=== PATIENT | female | born 1930 | race Caucasian/White ===

== ENCOUNTER 2016-02-25 21:39 | Inpatient (IN) | payer MEDICARE, BC ==
[~2016-02-25] VITALS: Ht 165.1 cm; Wt 65.0 kg
[~2016-02-25 21:39] MED LIST: AMLO5TAB22 PO; CARB25TA4 PO; CIPR250T2 PO; CLOP75 PO; FERR325T PO; GLUCTAB PO; LEVO50TA4 PO; NITR.4 SL; NOVORP2 SQ; PROT40TA PO; RIVA4.6T TD; ROTI4DIS TD; ST JTAB PO; ZOLO25TA PO
[2016-02-25 21:50] VITALS: BP 71/46; PULSE 102; RESP 18; O2SAT 95
[2016-02-25 22:10] VITALS: BP 109/55; PULSE 95; RESP 18; O2SAT 93
[2016-02-25 22:14] VITALS: BP 114/54; PULSE 101; RESP 18; TEMP 100.2; O2SAT 92
[2016-02-25] MEDS ORDERED: MIDAZOLAM HCL 5 MG/ML VIAL (1 ML) ONE (22:16)
[2016-02-25 22:37] VITALS: BP_SYST 89; BP_SYST 90; BP_DIAS 50; BP_DIAS 59; PULSE 94; RESP 18
[2016-02-25] MEDS ORDERED: SODIUM CHLOR 0.9% 1000 ML INJ 1,000 ML IV ONE (22:38)
[2016-02-25] MEDS ORDERED: VANCOMYCIN INJ 1,000 MG in SODIUM CHLOR 0.9% 250 ML INJ 250 ML IV STA (22:38)
[2016-02-25] MEDS ORDERED: PIPERACIL-TAZO 4.5 GM PREMIX 100 ML IV STA (22:38)
[2016-02-25] MEDS ORDERED: SODIUM CHLOR 0.9% 1000 ML INJ 800 ML IV ONE (22:38)
--- NOTE | 2016-02-25 22:57 | RADRPT ---
EXAM DATE/TIME: 02/25/2016 22:50 [facility] COMPARISON: CHEST SINGLE AP, December 20, 2014, 19:58. INDICATIONS : Evaluate central line placement. MEDICAL HISTORY : None. SURGICAL HISTORY : None. ENCOUNTER: Initial ACUITY: 1 day PAIN SCORE: Non-responsive. LOCATION: Left chest FINDINGS: There is a left subclavian central venous catheter that enters the superior vena cava and then turns cephalad for a distance of approximately 5 cm, presumably within the right internal jugular vein ther e is no pneumothorax. No infiltrates seen. Heart size stable, within normal limits. CONCLUSION: The left subclavian central venous catheter has its tip directed cephalad, projecting over the right medial lung apex. Please see above. No pneumothorax. Morales Gan MD on February 25, 2016 at 22:54 Board Certified Radiologist. This report was verified electronically.
[2016-02-25 23:05] LABS: AUTOMATED NEUTROPHIL # 16.9 TH/MM3 (1.8-7.7); BASOPHIL % 0.1 % (0.0-2.0); HEMATOCRIT 35.1 % (35.0-46.0); HEMO FLAGS DIFF FINAL; LYMPHOCYTE # 5.1 TH/MM3 (1.0-4.8); MEAN CORPUSCULAR HEMOGLOBIN 31.3 PG (27.0-34.0); MEAN CORPUSCULAR HGB CONC 32.3 % (32.0-36.0); MONO % 5.7 % (0.0-8.0); NEUT % 72.2 % (16.0-70.0); PLATELET COUNT 248 TH/MM3 (150-450); RED BLOOD COUNT 3.62 MIL/MM3 (4.00-5.30); RED CELL DISTRIBUTION WIDTH 14.6 % (11.6-17.2); WHITE BLOOD COUNT 23.5 TH/MM3 (4.0-11.0)
[2016-02-25] MEDS ORDERED: LORA-474 PO (23:09)
[2016-02-25] MEDS ORDERED: DIVA125C PO ×2 (23:09→23:19)
[2016-02-25] MEDS ORDERED: MIDAZOLAM HCL 2 MG/2 ML VIAL IV PUSH ONE (23:15)
[2016-02-25] MEDS ORDERED: ASPI81TA19 (23:19)
[2016-02-25] MEDS ORDERED: [UNRECOGNIZED DRUG - CODE] (23:19)
[2016-02-25] MEDS ORDERED: NITR1SUB3 SL (23:19)
[2016-02-25] MEDS ORDERED: FERR325T PO (23:19)
[2016-02-25] MEDS ORDERED: LEXA10TA PO (23:19)
[2016-02-25] MEDS ORDERED: AMLO5TAB2 PO (23:19)
[2016-02-25] MEDS ORDERED: INSUINJ3 SQ/IV (23:19)
[2016-02-25] MEDS ORDERED: REME30TA PO (23:19)
[2016-02-25] MEDS ORDERED: CARB25TA9 PO (23:19)
[2016-02-25] MEDS ORDERED: PLAV75TA29 PO (23:19)
[2016-02-25] MEDS ORDERED: LORA1TAB12 PO (23:19)
[2016-02-25] MEDS ORDERED: METF500T PO (23:19)
[2016-02-25] MEDS ORDERED: LEVO75TA3 PO (23:19)
[2016-02-25] MEDS ORDERED: PROT40TA PO (23:19)
[2016-02-25] MEDS ORDERED: MACR100C2 PO (23:19)
[2016-02-25] MEDS ORDERED: ROTI4DIS T-DERMAL (23:19)
[2016-02-25 23:24] LABS: BACTERIA, URINE MANY /hpf; BLOOD, URINE LARGE (NEG); COMMENT (UR) CATH-CULTURE IND; CULTURE IF INDICATED CATH CULTURE IND; GLUCOSE,URINE NEG (NEG); KETONE, URINE NEG (NEG); NITRITE,URINE POS (NEG); PH, URINE 7.5 (5.0-8.5); URINE COLOR RED (YELLW/STRAW)
[2016-02-25 23:31] LABS: ALKALINE PHOSPHATASE 75 U/L (45-117); ALT (GPT) 11 U/L (10-53); ANION GAP 12 MEQ/L (5-15); AST (GOT) 8 U/L (15-37); BICARBONATE 17.7 MEQ/L (21.0-32.0); BLOOD UREA NITROGEN 70 MG/DL (7-18); CHLORIDE 119 MEQ/L (98-107); GLOMERULAR FILTRATION RATE 22 ML/MIN (>89); POTASSIUM 4.2 MEQ/L (3.5-5.1); SODIUM (NA) 149 MEQ/L (136-145); TOTAL BILIRUBIN ADULT 0.3 MG/DL (0.2-1.0)
[2016-02-25 23:34] LABS: CREATINE KINASE 12 U/L (26-192)
--- NOTE | 2016-02-25 23:37 | RADRPT ---
EXAM DATE/TIME: 02/25/2016 23:22 [facility] COMPARISON: CT BRAIN W/O CONTRAST, January 11, 2015, 19:10. INDICATIONS : Altered mental status. RADIATION DOSE: 45.17 CTDIvol (mGy) MEDICAL HISTORY : Cerebrovascular disease. Hypertension. SURGICAL HISTORY : None. ENCOUNTER: Initial ACUITY: 1 day PAIN SCALE: 0/10 LOCATION: cranial TECHNIQUE: Multiple contiguous axial images were obtained of the head. Using automated exposure control and adj ustment of the mA and/or kV according to patient size, radiation dose was kept as low as reasonably a chievable to obtain optimal diagnostic quality images. FINDINGS: CEREBRUM: There is dilation of the ventricles and prominence of the sulci characteristic of moderately severe a trophy. Areas of decreased attenuation are present in the posterior left parietal lobe and in the ri ght parieto-occipital lobe involving doherty and white matter. This is a new finding compared to prior CT December 2014 and suggests bilateral infarcts. No evidence of blood products. No evidence of mid line shift. No extra-axial fluid collections. POSTERIOR FOSSA: The cerebellum and brainstem are intact. The 4th ventricle is midline. The cerebellopontine angle i s unremarkable. EXTRACRANIAL: The visualized portion of the orbits is intact. SKULL: The calvaria is intact. No evidence of skull fracture. 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 No evidence of blood products, mass effect, or cerebral edema. Tonny Gutierrez MD on February 25, 2016 at 23:32 Board Certified Radiologist. This report was verified electronically.
--- NOTE | 2016-02-25 23:39 | RADRPT ---
EXAM DATE/TIME: 02/25/2016 23:16 [facility] COMPARISON: CHEST SINGLE AP, February 25, 2016, 22:50. INDICATIONS : Evaluate Central Line reposition. MEDICAL HISTORY : Hypertension. Arthritis. Cardiovascular diseaseDiabetes SURGICAL HISTORY : Hysterectomy. Cholecystectomy. Coronary artery stent. ENCOUNTER: Subsequent ACUITY: 1 day PAIN SCORE: Non-responsive. LOCATION: Bilateral chest FINDINGS: A single view of the chest demonstrates the lungs to be symmetrically aerated without evidence of mas s, infiltrate or effusion. The cardiomediastinal contours are unremarkable. Osseous structures are intact. The left subclavian catheter has been repositioned and the tip is now projected in the dista l superior vena cava. No evidence of pneumothorax. CONCLUSION: Left central line tip is now in the distal superior vena cava. No pneumothorax seen. Tonny Gutierrez MD on February 25, 2016 at 23:37 Board Certified Radiologist. This report was verified electronically.
[2016-02-25 23:48] VITALS: O2SAT 96
[2016-02-25 23:49] VITALS: BP 112/51; PULSE 93; RESP 18; O2SAT 96
[2016-02-26] VITALS (13 sets, daily range): BP systolic 95–118; BP diastolic 42–69; PULSE 82–105; RESP 16–25; TEMP 97.9–100.1; O2SAT 94–100
--- NOTE | 2016-02-26 00:05 | PD ---
HPI Chief Complaint: Abnormal Results Time Seen by Provider: 22:38 Travel History International Travel<30 days: No Contact w/Intl Traveler<30days: No Traveled to known affect area: No History of Present Illness HPI 85-year-old female came to the emergency room brought by EMS as possible sepsis from the [facility]. Patient was found poorly responsive by the 3 PM shift at the [facility]. There was a blood work sent and EMS was called. The blood test result had a WBC count of 25,000. The nurse practitioner at the [facility] put a Tabares catheter which has been draining extremely cloudy and brown color urine. Patient has severe Parkinsonism and probably not very ambulatory since she has a deep decubitus ulcer in her sacrum. I was told that the patient's is also admitted in the hospital and her son is on his way to see the patient. Her blood pressure en route as per paramedics was 85 systolic. Patient is unresponsive mostly. Just moaning and opens her eyes a little bit upon sternal rub. She is unable to give any meaningful history. She is a full code. She has been maintaining her respirations and is saturating 99% on nasal cannula. [facility] Past Medical History Narrative Medical History of her past medical history is reviewed from the nursing note. Arthritis: Yes Asthma: No Blood Disorders: No Anxiety: Yes Depression: Yes Heart Rhythm Problems: No Cancer: Yes ( NOSE) Cardiac Catheterization: Yes (STENT LAD) Cardiovascular Problems: Yes High Cholesterol: Yes Chemotherapy: No Chest Pain: Yes Congestive Heart Failure: No COPD: No Cerebrovascular Accident: Yes ([place]) Dementia: Yes Diabetes: Yes Patient Takes Glucophage: Yes Diminished Hearing: Yes ([place]) Endocrine: Yes Gastrointestinal Disorders: Yes ([place]MM[place]HO[place] ) GERD: Yes Glaucoma: No Headaches: No Hepatitis: Yes Hiatal Hernia: Yes Heparin Induced Thrombocytopen: No Hypertension: Yes Immune Disorder: Yes (SJORGEN'S SYNDROME) Implanted Vascular Access Dvce: Yes Kidney Stones: Yes Musculoskeletal: Yes (L LEG SHORTER THAN RIGHT, L FOOT SMALLER) Neurologic: Yes Parkinson's Disease: Yes Psychiatric: Yes Reproductive: No Migraines: No Myocardial Infarction: No Radiation Therapy: No Renal Failure: No Seizures: No Sleep Apnea: No Thyroid Disease: Yes Ulcer: No PNEUMOCCOCAL Vaccine (Year): 2 Past Surgical History Abdominal Surgery: Yes AICD: No Appendectomy: No Arteriovenous Shunt: No Body Medical Devices: "HEART STENT, I CAN'T REMEMBER ANYTHING ELSE" Cardiac Surgery: Yes (STENT PLACED TWO YEARS AGO) Cholecystectomy: Yes Coronary Artery Bypass Graft: No Coronary Stent: Yes Ear Surgery: No Endocrine Surgery: No Eye Surgery: No Genitourinary Surgery: Yes (RIGHT KIDNEY, URETHRAL) Gynecologic Surgery: Yes Hysterectomy: Yes Insulin Pump: No Joint Replacement: No Neurologic Surgery: No Oral Surgery: No Pacemaker: No Thoracic Surgery: Yes (THORACOTOMY at 26, FOUND A CYST ON HER LUNG) Tonsillectomy: Yes Other Surgery: Yes (NOSE) Family History Family Myocardial Infarction: Yes Social History Alcohol Use: No Tobacco Use: No Substance Use: No Allergies-Medications (Allergen,Severity, Reaction): Coded Allergies: Iodinated Contrast Media (Verified Allergy, Severe, DIFFICULTY BREATHING, 02/25/16) Keflex (Verified Allergy, Severe, 02/25/16) Tetracycline (Verified Allergy, Severe, 02/25/16) [place] (Verified Allergy, Mild, 02/25/16) *MDRO Multi-Drug Resistant Organism (Verified Adverse Reaction, Unknown, MRSA, 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 Reported Meds & Prescriptions Reported Meds & Active Scripts Active Reported Megestrol Acetate 1 Pow Pow 1 Lexapro (Escitalopram Oxalate) 10 Mg Tab 10 Mg PO DAILY Remeron (Mirtazapine) 30 Mg Tab 30 Mg PO HS Neupro Patch 24 HR (Rotigotine Patch 24 HR) 4 Mg/24 Hr Patch 4 Mg T-DERMAL DAILY Protonix (Pantoprazole Sodium) 40 Mg Tab 40 Mg PO DAILY Nitroglycerin SL (Nitroglycerin) 0.4 Mg Subl 0.4 Mg SL DIRECTED PRN ONE TABLET UNDER THE TONGUE NEEDED FOR CHEST PAIN, MAY REPEAT EVERY FIVE MINUTES FOR A TOTAL OF 3 DOSES OR CALL 911 IF NO RELIEF Metformin (Metformin HCl) 500 Mg Tab 500 Mg PO BIDPC With meals Lorazepam 1 Mg Tab 1 Mg PO Q8H Levothyroxine (Levothyroxine Sodium) 75 Mcg Tab 37.5 Mcg PO DAILY Novolin R Relion (Insulin Regular (Human)) 100 Unit/Ml Inj 100 Units SQ/IV SLIDING SCALE Ferrous Sulfate 325 Mg Tab 325 Mg PO DAILY Depakote Sprinkles (Divalproex Sodium) 125 mg Cap 125 Mg PO BID Plavix (Clopidogrel Bisulfate) 75 Mg Tab 75 Mg PO DAILY Carbidopa-Levodopa 25-100 Mg Tab 1 Tab PO Q8HR Aspir-Low (Aspirin) 81 Mg Tabdr Amlodipine (Amlodipine Besylate) 5 Mg Tab 5 Mg PO DAILY Narrative Medication List of her home medications reviewed from the nursing note. Review of Systems Except as stated in HPI: all other systems reviewed are Neg Physical Exam Narrative GENERAL: Elderly, frail, poorly responsive SKIN: Warm and dry. Patient has a stage IV decubitus ulcer on her sacral area about 3 cm diameter HEAD: Atraumatic. Normocephalic. EYES: Pupils equal and round. No scleral icterus. No injection or drainage. ENT: No nasal bleeding or discharge. Dry mucous membrane, cracked lips and coated tongue NECK: Trachea midline. No JVD. CARDIOVASCULAR: Regular rate and rhythm. No murmur appreciated. RESPIRATORY: No accessory muscle use. Clear to auscultation. Breath sounds equal bilaterally. GASTROINTESTINAL: Abdomen soft, non-tender, nondistended. Hepatic and splenic margins not palpable. MUSCULOSKELETAL: No obvious deformities. No clubbing. No cyanosis. No edema. NEUROLOGICAL: GCS of 9 PSYCHIATRIC: Unable to assess Data Data Last Documented VS Vital Signs Date Time Temp Pulse Resp B/P Pulse Ox O2 Delivery O2 Flow Rate FiO2 02/25/16 23:49 93 18 112/51 96 Nasal Cannula 3 02/25/16 22:14 100.2 Orders Midazolam Inj (Versed Inj) (02/25/16 22:16) Complete Blood Count With Diff (02/25/16 22:38) Comprehensive Metabolic Panel (02/25/16 22:38) Lactic Acid Sepsis Protocol (02/25/16 22:38) Ckmb (Isoenzyme) Profile (02/25/16 22:38) Troponin I (02/25/16 22:38) Urinalysis - C+S If Indicated (02/25/16 22:38) Blood Culture (02/25/16 22:38) Chest, Single Ap (02/25/16 22:38) Blood Glucose (02/25/16 22:38) Ecg Monitoring (02/25/16 22:38) Iv Access Insert/Monitor (02/25/16 22:38) Oximetry (02/25/16 22:38) Oxygen Administration (02/25/16 22:38) Ct Brain W/O Iv Contrast(Rout) (02/25/16 22:38) Vancomycin Inj (Vancomycin Inj) (02/25/16 22:38) Piperacil-Tazo 4.5 Gm Premix (Zosyn 4.5 (02/25/16 22:38) Sodium Chlor 0.9% 1000 Ml Inj (Ns 1000 M (02/25/16 22:38) Sodium Chlor 0.9% 1000 Ml Inj (Ns 1000 M (02/25/16 22:38) Chest, Single Ap (02/25/16 ) Midazolam Inj (Versed Inj) (02/25/16 23:15) Urine Culture (02/25/16 22:30) Admit Order (Ed Use Only) (02/25/16 23:54) Labs Laboratory Tests Test 02/25/16 22:30 Sodium Level 149 MEQ/L Potassium Level 4.2 MEQ/L Chloride Level 119 MEQ/L Carbon Dioxide Level 17.7 MEQ/L Anion Gap 12 MEQ/L Blood Urea Nitrogen 70 MG/DL Creatinine 2.09 MG/DL Estimat Glomerular Filtration 22 ML/MIN Rate Random Glucose 120 MG/DL Calcium Level 8.8 MG/DL Total Bilirubin 0.3 MG/DL Aspartate Amino Transf 8 U/L (AST/SGOT) Alanine Aminotransferase 11 U/L (ALT/SGPT) Alkaline Phosphatase 75 U/L Total Creatine Kinase 12 U/L Troponin I 0.03 NG/ML Total Protein 5.1 GM/DL Albumin 2.0 GM/DL Hemoglobin A1c 5.5 % Lactic Acid Level 4.9 mmol/L Thyroid Stimulating Hormone 1.050 uIU/ML 3rd Gen Valproic Acid (Depakene) Level 20 MCG/ML White Blood Count 23.5 TH/MM3 Red Blood Count 3.62 MIL/MM3 Hemoglobin 11.3 GM/DL Hematocrit 35.1 % Mean Corpuscular Volume 97.0 FL Mean Corpuscular Hemoglobin 31.3 PG Mean Corpuscular Hemoglobin 32.3 % Concent Red Cell Distribution Width 14.6 % Platelet Count 248 TH/MM3 Mean Platelet Volume 9.9 FL Neutrophils (%) (Auto) 72.2 % Lymphocytes (%) (Auto) 22.0 % Monocytes (%) (Auto) 5.7 % Eosinophils (%) (Auto) 0.0 % Basophils (%) (Auto) 0.1 % Neutrophils # (Auto) 16.9 TH/MM3 Lymphocytes # (Auto) 5.1 TH/MM3 Monocytes # (Auto) 1.3 TH/MM3 Eosinophils # (Auto) 0.0 TH/MM3 Basophils # (Auto) 0.0 TH/MM3 CBC Comment DIFF FINAL Differential Comment Urine Color RED Urine Turbidity HAZY Urine pH 7.5 Urine Specific [place] 1.018 Urine Protein 300 mg/dL Urine Glucose (UA) NEG mg/dL Urine Ketones NEG mg/dL Urine Occult Blood LARGE Urine Nitrite POS Urine Bilirubin NEG Urine Urobilinogen LESS THAN 2.0 MG/DL Urine Leukocyte Esterase LARGE Urine RBC /hpf Urine WBC /hpf Urine Bacteria MANY /hpf Microscopic Urinalysis Comment CATH-CULTURE IND MDM Medical Decision Making Medical Screen Exam Complete: Yes Emergency Medical Condition: Yes Medical Record Reviewed: Yes Differential Diagnosis Sepsis, UTI, pneumonia, head bleed, electrolyte abnormalities Narrative Course 12 AM I decided not to intubate the patient he had to since she has been maintaining her respirations well. In my opinion, she would do extremely poorly on a ventilator. She would require fluids and antibiotic and had only one peripheral line. I decided to put a central line which patient tolerated the procedure well. The initial line placement was checked with the chest x- ray and showed that the tip of the catheter was moving cephalad to the opposite side of the insertion and I readjusted the catheter on wire and the repeat x- ray done showed good placement of the triple lumen. Patient was given IV fluid and antibiotic as per sepsis protocol. I spoke with her son who later came in and confirmed the patient is a full code. I've explained to him the diagnosis and the test result and that she would require to be in the ICU. He understands and I tried to answer all his questions to the best of my ability. I spoke with the diabetes solutions specialist who has accepted the patient. Her current blood pressure is 115 systolic. Patient looks much more comfortable and sleeping. Critical Care Narrative Aggregate critical care time was 75 minutes. Time to perform other separately billable procedures was not included in the critical care time. My time did not include minutes spent treating any other patients simultaneously or on activities that did not directly contribute to the patient's treatment. The services I provided to this patient were to treat and/or prevent clinically significant deterioration that could result in: Sepsis, UTI, hyponatremic dehydration, sepsis protocol, altered mental status I provided critical care services requiring my management, as noted below: Chart data review, documentation time, medication orders and management, vital sign assessments/reviewing monitor data, ordering and reviewing lab tests, ordering and interpreting/reviewing x-rays and diagnostic studies, care of the patient and discussion of the patient with the admitting physicians. Procedures Procedure Narrative CENTRAL VENOUS LINE: The site was prepped with Betadine and sterilely draped. It was infiltrated with 1% lidocaine plain. The deep vein was cannulated using normal Seldinger technique. A triple lumen central line was placed in the left subclavian site and secured with simple interrupted suture. The site was sterilely dressed. The patient tolerated the procedure well. EKG Prior to Arrival: No Sepsis Criteria SIRS Criteria (2 or more): Heart rate over 90, WBC > 52039, < 4000 or > 10% bands Sepsis Criteria (SIRS+source): Infect source susp/known Physician Communication Physician Communication Dr. Go Diagnosis Primary Impression: Sepsis Qualified Code: A41.9 - Sepsis, due to unspecified organism Additional Impressions: UTI (urinary tract infection) Qualified Code: N39.0 - Urinary tract infection without hematuria, site unspecified Altered mental status Qualified Code: R40.1 - Stupor Dehydration with hypernatremia Decubitus ulcer Qualified Code: L89.94 - Pressure ulcer, stage 4, unspecified location Admitting Information Admitting Physician Requests: Zeferino Orourke MD Feb 26, 2016 00:05
[2016-02-26] MEDS ORDERED: POTASSIUM CL 40 MEQ/30 ML LIQ UDC PO/TUBE PRN ×2 (00:45)
[2016-02-26] MEDS ORDERED: ONDANSETRON HCL 4 MG/2 ML VIAL IV PRN (00:45)
[2016-02-26] MEDS ORDERED: POTASSIUM PHOSPHATE MONOBASIC 500 MG TAB PO/TUBE PRN (00:45)
[2016-02-26] MEDS ORDERED: POTASSIUM CHLOR 40 MEQ PREMIX 100 ML IV PRN ×2 (00:45)
[2016-02-26] MEDS ORDERED: MISCELLANEOUS NURSING INFORMATION XX SCH ×2 (00:45→01:00)
[2016-02-26] MEDS ORDERED: POTASSIUM PHOSPHATE MONOBASIC 500 MG TAB PO PRN (00:45)
[2016-02-26] MEDS ORDERED: POTASSIUM CHLOR 20 MEQ PREMIX 100 ML IV PRN ×2 (00:45)
[2016-02-26] MEDS ORDERED: MAGNESIUM SULFATE INJ 4 GM in SODIUM CHLORIDE 0.9% INJ 92 ML IV PRN (00:45)
[2016-02-26] MEDS ORDERED: POTASSIUM PHOSPHATE INJ 30 MMOL in SODIUM CHLOR 0.9% 250 ML INJ 250 ML IV PRN (00:45)
[2016-02-26] MEDS ORDERED: MAGNESIUM SULFATE INJ 2 GM in SODIUM CHLORIDE 0.9% INJ 96 ML IV PRN (00:45)
[2016-02-26] MEDS ORDERED: MAGNESIUM HYDROXIDE SUSP 30 ML CUP PO PRN (00:45)
[2016-02-26] MEDS ORDERED: RESP: ALBUTEROL 2.5 MG/IPRATROPIUM 0.5 MG NEB (PRN) INH (00:45)
[2016-02-26] MEDS: DOCUSATE SODIUM 100 MG/10 ML UDC G-TUBE SCH ×2 (00:45→13:35)
[2016-02-26] MEDS ORDERED: BISACODYL 10 MG SUPP RECTAL PRN (00:45)
[2016-02-26] MEDS ORDERED: CHLORHEXIDINE GLUCONATE 2 % 1 PACK (2 CLOTHS) TOP PRN ×2 (00:45→01:00)
[2016-02-26] MEDS ORDERED: MAGNESIUM OXIDE 400 MG TAB PO PRN (00:45)
[2016-02-26] MEDS ORDERED: SODIUM PHOSPHATE INJ 30 MMOL in SODIUM CHLOR 0.9% 250 ML INJ 240 ML IV PRN (00:45)
[2016-02-26] MEDS ORDERED: SODIUM CHLORIDE 0.9% FLUSH 5 ML FLUSH IV FLUSH PRN (00:45)
[2016-02-26 00:58] LABS: LACTIC ACID GHOST NOT REPORTABLE
[2016-02-26] MEDS ORDERED: GLUCAGON 1 MG/ML VIAL OTHER PRN (01:00)
[2016-02-26] MEDS ORDERED: Gentamicin Consult Pharmacy 1 EA XX SCH (01:00)
[2016-02-26] MEDS ORDERED: DEXTROSE 50% IN WATER 50 ML VIAL(D50) IV PUSH PRN (01:00)
[2016-02-26] MEDS ORDERED: Vancomycin Consult Pharmacy 1 EA XX SCH (01:00)
--- NOTE | 2016-02-26 01:02 | HHI.HP ---
[facility] Service Critical Care Medicine Primary Care Physician Raheem Ochoa MD Admission Diagnosis sepsis, altered mental status, UTI, decubitus ulcer Diagnosis: Travel History International Travel<30 Days: No Contact w/Intl Traveler <30 Da: No Traveled to Known Affected Are: No Sepsis Criteria SIRS Criteria (2 or more): Temp > 100.9 or < 96.8, WBC > 80405, < 4000 or > 10 % bands Septic Shock Criteria: Lactic acid >=4 Multiple Organ Dysfunction Syn: Evidence -2 organs failing History of Present Illness 85-year-old female that resides in a [facility] , presented to the ED with altered mental status. The patient was found poorly responsive by the 3 PM shift at the [facility]. The [facility] facility obtain lab work which resulted in a WBC count of 25,000. A Tabares catheter was placed at the [facility] facility and was noted to drain dark reddish brown malodorous cloudy urine. The patient's medical history is significant for severe Parkinsonism and has been basically bedridden. Upon examination in the ED, it was noted she has a deep 2 inch decubitus ulcer in her sacrum. I was told that the patient's is also a patient here in the hospital. In route to the hospital per ED the patient was hypotensive ,SBP 80's. The patient is unresponsive unable to provide any information. Just moaning and opens her eyes to noxious stimuli. [facility] was consulted for treatment and management .Discussion with the son, revealed that the patient is a full code. She has been maintaining her respirations and is saturating 99% on nasal cannula, if respiratory compromise occurs the family requested intubation and all aggressive measures. History PFSH Past Medical History Narrative Medical History of her past medical history is reviewed from the nursing note. Arthritis: Yes Asthma: No Blood Disorders: No Anxiety: Yes Depression: Yes Heart Rhythm Problems: No Cancer: Yes ( NOSE) Cardiac Catheterization: Yes (STENT LAD) Cardiovascular Problems: Yes High Cholesterol: Yes Chemotherapy: No Chest Pain: Yes Congestive Heart Failure: No COPD: No Cerebrovascular Accident: Yes (ANGINA) Dementia: Yes Diabetes: Yes Patient Takes Glucophage: Yes Diminished Hearing: Yes ([place]IL[place]) Endocrine: Yes Gastrointestinal Disorders: Yes (HEMMORHOIDS ) GERD: Yes Glaucoma: No Headaches: No Hepatitis: Yes Hiatal Hernia: Yes Heparin Induced Thrombocytopen: No Hypertension: Yes Immune Disorder: Yes (SJORGEN'S SYNDROME) Implanted Vascular Access Dvce: Yes Kidney Stones: Yes Musculoskeletal: Yes (L LEG SHORTER THAN RIGHT, L FOOT SMALLER) Neurologic: Yes Parkinson's Disease: Yes Psychiatric: Yes Reproductive: No Migraines: No Myocardial Infarction: No Radiation Therapy: No Renal Failure: No Seizures: No Sleep Apnea: No Thyroid Disease: Yes Ulcer: No PNEUMOCCOCAL Vaccine (Year): 2 Past Surgical History Abdominal Surgery: Yes AICD: No Appendectomy: No Arteriovenous Shunt: No Body Medical Devices: "HEART STENT, I CAN'T REMEMBER ANYTHING ELSE" Cardiac Surgery: Yes (STENT PLACED TWO YEARS AGO) Cholecystectomy: Yes Coronary Artery Bypass Graft: No Coronary Stent: Yes Ear Surgery: No Endocrine Surgery: No Eye Surgery: No Genitourinary Surgery: Yes (RIGHT KIDNEY, URETHRAL) Gynecologic Surgery: Yes Hysterectomy: Yes Insulin Pump: No Joint Replacement: No Neurologic Surgery: No Oral Surgery: No Pacemaker: No Thoracic Surgery: Yes (THORACOTOMY at 26, FOUND A CYST ON HER LUNG) Tonsillectomy: Yes Other Surgery: Yes (NOSE) Family History Family Myocardial Infarction: Yes Social History Alcohol Use: No Tobacco Use: No Substance Use: No Allergies-Medications Allergies-Medications (Allergen,Severity, Reaction): Coded Allergies: Iodinated Contrast Media (Verified Allergy, Severe, DIFFICULTY BREATHING, 02/25/16) Keflex (Verified Allergy, Severe, 02/25/16) Tetracycline (Verified Allergy, Severe, 02/25/16) [place] (Verified Allergy, Mild, 02/25/16) Uncoded Allergies: COCONUT (Adverse Reaction, Severe, 03/10/14) EGGS (Adverse Reaction, Severe, 03/10/14) Comments List of her allergies reviewed from the nursing note. Reported Meds & Prescriptions Reported Meds & Active Scripts Active Reported Megestrol Acetate 1 Pow Pow 1 Macrobid (Nitrofurantoin Monoh/Nitrofur Macro) 100 Mg Cap 100 Mg PO BID Lexapro (Escitalopram Oxalate) 10 Mg Tab 10 Mg PO DAILY Remeron (Mirtazapine) 30 Mg Tab 30 Mg PO HS Neupro Patch 24 HR (Rotigotine Patch 24 HR) 4 Mg/24 Hr Patch 4 Mg T-DERMAL DAILY Protonix (Pantoprazole Sodium) 40 Mg Tab 40 Mg PO DAILY Nitroglycerin SL (Nitroglycerin) 0.4 Mg Subl 0.4 Mg SL DIRECTED PRN ONE TABLET UNDER THE TONGUE NEEDED FOR CHEST PAIN, MAY REPEAT EVERY FIVE MINUTES FOR A TOTAL OF 3 DOSES OR CALL 911 IF NO RELIEF Metformin (Metformin HCl) 500 Mg Tab 500 Mg PO BIDPC With meals Lorazepam 1 Mg Tab 1 Mg PO Q8H Levothyroxine (Levothyroxine Sodium) 75 Mcg Tab 37.5 Mcg PO DAILY Novolin R Relion (Insulin Regular (Human)) 100 Unit/Ml Inj 100 Units SQ/IV SLIDING SCALE Ferrous Sulfate 325 Mg Tab 325 Mg PO DAILY Depakote Sprinkles (Divalproex Sodium) 125 mg Cap 125 Mg PO BID Plavix (Clopidogrel Bisulfate) 75 Mg Tab 75 Mg PO DAILY Carbidopa-Levodopa 25-100 Mg Tab 1 Tab PO Q8HR Aspir-Low (Aspirin) 81 Mg Tabdr Amlodipine (Amlodipine Besylate) 5 Mg Tab 5 Mg PO DAILY Narrative Medication List of her home medications reviewed from the nursing note. ROS Review of Systems Except as stated in HPI: all other systems reviewed are Neg Past Family Social History Allergies: Coded Allergies: Iodinated Contrast Media (Verified Allergy, Severe, DIFFICULTY BREATHING, 02/25/16) Keflex (Verified Allergy, Severe, 02/25/16) Tetracycline (Verified Allergy, Severe, 02/25/16) [place] (Verified Allergy, Mild, 02/25/16) Uncoded Allergies: COCONUT (Adverse Reaction, Severe, 03/10/14) EGGS (Adverse Reaction, Severe, 03/10/14) Physical Exam Vital Signs Vital Signs Date Time Temp Pulse Resp B/P Pulse Ox O2 Delivery O2 Flow Rate FiO2 02/25/16 23:49 93 18 112/51 96 Nasal Cannula 3 02/25/16 23:48 96 Nasal Cannula 3 02/25/16 23:47 96 Nasal Cannula 3 02/25/16 22:37 94 18 89/50 02/25/16 22:37 94 18 90/59 02/25/16 22:14 92 Nasal Cannula 2 02/25/16 22:14 100.2 101 18 114/54 92 Nasal Cannula 2 02/25/16 22:10 95 18 109/55 93 02/25/16 21:50 102 18 71/46 95 Physical Exam GENERAL: Critically ill-appearing elderly well-developed, nonresponsive female, with noted tremors SKIN: Warm and dry. HEAD: Atraumatic. Normocephalic. EYES: Remaining closed .Pupils equal and round. No scleral icterus. No injection or drainage. ENT: No nasal bleeding or discharge. Mucous membranes pink and moist. Nasal cannula at 2 L/m NECK: Trachea midline. No JVD. CARDIOVASCULAR: Normal rate, regular rhythm. RESPIRATORY: No accessory muscle use. Clear to auscultation. Breath sounds equal bilaterally. On nasal cannula 99% GASTROINTESTINAL: Abdomen soft, non-tender, nondistended. No guarding. MUSCULOSKELETAL: Extremities without clubbing, cyanosis, or edema. No obvious deformities. NEUROLOGICAL: Parkinsonian tremors, the patient does not follow any commands. Eyes are closed, will open eyes to noxious stimuli Laboratory Laboratory Tests Test 02/25/16 22:30 White Blood Count 23.5 Red Blood Count 3.62 Hemoglobin 11.3 Hematocrit 35.1 Mean Corpuscular Volume 97.0 Mean Corpuscular Hemoglobin 31.3 Mean Corpuscular Hemoglobin 32.3 Concent Red Cell Distribution Width 14.6 Platelet Count 248 Mean Platelet Volume 9.9 Neutrophils (%) (Auto) 72.2 Lymphocytes (%) (Auto) 22.0 Monocytes (%) (Auto) 5.7 Eosinophils (%) (Auto) 0.0 Basophils (%) (Auto) 0.1 Neutrophils # (Auto) 16.9 Lymphocytes # (Auto) 5.1 Monocytes # (Auto) 1.3 Eosinophils # (Auto) 0.0 Basophils # (Auto) 0.0 CBC Comment DIFF FINAL Differential Comment Urine Color RED Urine Turbidity HAZY Urine pH 7.5 Urine Specific [place] 1.018 Urine Protein 300 Urine Glucose (UA) NEG Urine Ketones NEG Urine Occult Blood LARGE Urine Nitrite POS Urine Bilirubin NEG Urine Urobilinogen LESS THAN 2.0 Urine Leukocyte Esterase LARGE Urine RBC Urine WBC Urine Bacteria MANY Microscopic Urinalysis Comment CATH-CULTURE IND Sodium Level 149 Potassium Level 4.2 Chloride Level 119 Carbon Dioxide Level 17.7 Anion Gap 12 Blood Urea Nitrogen 70 Creatinine 2.09 Estimat Glomerular Filtration 22 Rate Random Glucose 120 Calcium Level 8.8 Total Bilirubin 0.3 Aspartate Amino Transf 8 (AST/SGOT) Alanine Aminotransferase 11 (ALT/SGPT) Alkaline Phosphatase 75 Total Creatine Kinase 12 Troponin I 0.03 Total Protein 5.1 Albumin 2.0 Lactic Acid Level 4.9 Date/Time Procedure Status Source Growth 02/25/16 22:30 Urine Culture Received Urine Catheterized Urine Pending 02/25/16 22:30 Aerobic Blood Culture Received Blood Peripheral Pending 02/25/16 22:30 Anaerobic Blood Culture Received Blood Peripheral Pending Result Diagram: 02/25/16222902/25/162229 Imaging Last Impressions Head CT 02/25/162237 Signed Impressions: Service Date/Time: February 23:22 - CONCLUSION: Bilateral parietal transcortical infarcts appear subacute or chronic, but are new finding compared to December 2014. No evidence of blood products, mass effect, or cerebral edema. Tonny Gutierrez MD Chest X-Ray 02/25/162237 Signed Impressions: Service Date/Time: February 22:50 - CONCLUSION: The left subclavian central venous catheter has its tip directed cephalad, projecting over the right medial lung apex. Please see above. No pneumothorax. Morales Gan MD Septic Shock Reassessment Heart: Regular rate and rhythm Lungs: Clear Skin: Warm Peripheral Pulses: Bounding Right Radial Bounding Left Radial Bounding Right Dorsalis Pedis Bounding Left Dorsalis Pedis Capillary Refill: Brisk Assessment and Plan Assessment and Plan This is a critically ill elderly female patient with suspected urosepsis, altered mental status currently maintaining airway. The patient is at risk for possible intubation. Extensive discussion with the son revealed that he would like intubation if required by patient. Discussed goals of care as the patient remains critically ill with urosepsis, severe Parkinson's, altered mental status , decubitus ulcer, as the prognosis is guarded. The son requests that all measures be taken to include intubation and the patient is a full code. Neurologic: Altered mental status Toxic encephalopathy-secondary to urosepsis Parkinsons disease H/O CVA Depression Insomnia Hearing loss -Neurochecks per ICU protocol -Resume anti-Parkinson's home medications levodopa-carbidopa -We'll hold home meds Lexapro, Remeron, Ativan -Hold Depakote, obtain Depakote levels Respiratory: -No acute issues, patient is at risk for possible intubation Cardiovascular: Septic shock H/O cardiac stents Cardiovascular disease Hypertension -Maintain map greater than 65 mmHg, will place central line if needed for vasopressors -After bolus of IVF's patient normotensive SBP 115 -We'll resume home antihypertensive meds when clinically indicated -Patient on Plavix, and ASA 81 mg, will hold for now with noted hematuria Renal: DEEP Renal insufficiency Hematuria S/P renal surgery (past history) -Bolused 3 L normal saline in ED, per sepsis protocol -0.9 NaCl @42cc/hr -- Strict I/Os FEN/GI: Diabetes mellitus -Insert Dobbhoff tube, aspiration precautions, follow-up KUB -Monitor BMP -Creatinine 2.09 -Hold metformin Heme/ID: Probable Urosepsis Leukocytosis -Received Zosyn and vancomycin and the ED -Begin vancomycin and Azactam and gentamicin -F/U serial lactate levels-initial lactate 4.9 -Tylenol for temp greater than 101 -Monitor CBC-noted hematuria, patient on Plavix Endocrine: Hypothyroidism -Monitor blood glucose every 6 hours per ICU protocol -Obtain thyroid level follow-up results and then resume medication -- SSI MSK: Decubitus ulcer-sacrum -Wound care consult -PT evaluation and treat-functional maintenance daily Prophylaxis: GI Prophylaxis Protonix 40 mg IV/day DVT Prophylaxis -- SCDs Lines: Peripheral IVs 2. Central line if indicated Dispo: This patient remains critically ill with one or more organ systems which are or may become a threat to life. I have spent in excess of 60 minutes discontinuously in the care and management of this patient. This time is exclusive of procedures, and includes, but is not limited to, evaluation of the patient, review of the medical record, discussions with family, consultants, nursing staff, or respiratory therapy, and documentation in the medical record. Code Status Full code Discussed Condition With Son at bedside, and ED Jaci Domingo MD Feb 26, 2016 01:02
[2016-02-26] MEDS: AZTREONAM INJ 1,000 MG in SODIUM CHLORIDE 0.9% INJ 100 ML IV SCH ×2 (02:06→14:45)
[2016-02-26] MEDS: SODIUM CHLOR 0.9% 1000 ML INJ 1,000 ML IV SCH ×2 (02:06→18:49)
[2016-02-26 02:19] LABS: INDIRECT BILIRUBIN 0.3 MG/DL (0.0-0.8); TOTAL BILIRUBIN ADULT 0.5 MG/DL (0.2-1.0)
[2016-02-26] MEDS ORDERED: SODIUM CHLORIDE 0.9% IV SCH (03:00)
[2016-02-26] MEDS ORDERED: GENTAMICIN IV SCH (03:00)
[2016-02-26] MEDS: CHLORHEXIDINE GLUCONATE 2 % 1 PACK (2 CLOTHS) TOP SCH (04:00)
[2016-02-26] MEDS ORDERED: CHLORHEXIDINE GLUCONATE 2 % 1 PACK (2 CLOTHS) TOP SCH (04:00)
[2016-02-26] MEDS: CARBIDOPA/LEVODOPA 25 MG/100 MG TAB PO SCH ×3 (06:13→21:08)
--- NOTE | 2016-02-26 06:50 | RADRPT ---
EXAM DATE/TIME: 02/26/2016 06:13 [place] COMPARISON: CHEST SINGLE AP, February 25, 2016, 23:16. INDICATIONS : Evaluate for NG tube placement. MEDICAL HISTORY : Hypertension. Arthritis. Cardiovascular disease. Diabetes. SURGICAL HISTORY : Hysterectomy. Cholecystectomy. Coronary artery stent. ENCOUNTER: Initial ACUITY: 1 day PAIN SCORE: Non-responsive. LOCATION: chest FINDINGS: Gastric tube is in place and is coiled in the stomach. Left subclavian central line tip projects ove r the distal superior vena cava. The lungs are symmetrically aerated and clear. The heart is normal size. CONCLUSION: Gastric tube tip and side-port within the stomach. Central line in good position. Tonny Gutierrez MD on February 26, 2016 at 6:47 Board Certified Radiologist. This report was verified electronically.
[2016-02-26] MEDS: INSULIN ASPART SUPPLEMENTAL SCALE SQ SCH ×4 (07:00→21:00)
[2016-02-26] MEDS: SODIUM CHLORIDE 0.9% FLUSH 5 ML FLUSH IV FLUSH SCH ×2 (10:24→21:08)
[2016-02-26] MEDS: PANTOPRAZOLE SODIUM 40 MG VIAL IV SCH (10:24)
[2016-02-26] MEDS ORDERED: PILL SPLITTER OTHER PRN (11:45)
[2016-02-26 12:00] LABS: HEMOGLOBIN A1b 2.2 %; HEMOGLOBIN Ao 82.8 %; HEMOGLOBIN LA1C 2.3 %; HEMOGLOBIN P3 6.4 %
[2016-02-26] MEDS: ACETAMINOPHEN 650 MG/20.3 ML UDC PO PRN (12:24)
[2016-02-26] MEDS: DIVALPROEX SODIUM SPRINKLES 125 MG CAP PO SCH ×2 (13:34→21:08)
[2016-02-26] MEDS: LEVOTHYROXINE SODIUM 75 MCG TAB PO SCH (13:34)
[2016-02-26] MEDS ORDERED: [UNRECOGNIZED DRUG - REMARK] XX ONE (14:00)
[2016-02-27] VITALS (14 sets, daily range): BP systolic 132–139; BP diastolic 60–67; PULSE 96–110; RESP 10–22; TEMP 97.2–101.7; O2SAT 96–100
[2016-02-27] MEDS: DOCUSATE SODIUM 100 MG/10 ML UDC G-TUBE SCH ×3 (02:19→23:49)
[2016-02-27] MEDS: AZTREONAM INJ 1,000 MG in SODIUM CHLORIDE 0.9% INJ 100 ML IV SCH ×2 (02:19→14:35)
[2016-02-27] MEDS: CHLORHEXIDINE GLUCONATE 2 % 1 PACK (2 CLOTHS) TOP SCH (04:00)
[2016-02-27 04:26] LABS: AUTOMATED NEUTROPHIL # 12.1 TH/MM3 (1.8-7.7); BASOPHIL % 0.1 % (0.0-2.0); EOSINOPHIL # 0.1 TH/MM3 (0-0.4); EOSINOPHIL % 0.6 % (0.0-4.0); HEMATOCRIT 29.2 % (35.0-46.0); HEMO FLAGS DIFF FINAL; LYMPH % 18.7 % (9.0-44.0); LYMPHOCYTE # 2.9 TH/MM3 (1.0-4.8); MEAN CELL VOLUME 95.9 FL (80.0-100.0); MEAN CORPUSCULAR HEMOGLOBIN 31.3 PG (27.0-34.0); MEAN CORPUSCULAR HGB CONC 32.6 % (32.0-36.0); MONO % 3.6 % (0.0-8.0); PLATELET COUNT 175 TH/MM3 (150-450); RED BLOOD COUNT 3.04 MIL/MM3 (4.00-5.30); RED CELL DISTRIBUTION WIDTH 14.2 % (11.6-17.2); WHITE BLOOD COUNT 15.7 TH/MM3 (4.0-11.0)
[2016-02-27 04:53] LABS: APTT (PATIENT) 21.7 SEC (24.3-30.1); PROTHROMBIN TIME - PATIENT 11.4 SEC (9.8-11.6)
[2016-02-27 04:56] LABS: BICARBONATE 20.1 MEQ/L (21.0-32.0); POTASSIUM 3.6 MEQ/L (3.5-5.1)
[2016-02-27 05:06] LABS: RANDOM GENTAMICIN 1.4 MCG/ML
[2016-02-27] MEDS ORDERED: PHARMACY ORDERED LAB XX ONE (06:00)
[2016-02-27] MEDS: LEVOTHYROXINE SODIUM 75 MCG TAB PO SCH (06:06)
[2016-02-27] MEDS: CARBIDOPA/LEVODOPA 25 MG/100 MG TAB PO SCH ×3 (06:06→20:51)
[2016-02-27] MEDS: INSULIN ASPART SUPPLEMENTAL SCALE SQ SCH ×4 (07:00→20:25)
[2016-02-27] MEDS: FREE WATER G-TUBE SCH ×4 (09:00→23:21)
[2016-02-27] MEDS: SODIUM CHLOR 0.9% 1000 ML INJ 1,000 ML IV SCH ×2 (09:36→22:38)
[2016-02-27] MEDS: SODIUM CHLORIDE 0.9% FLUSH 5 ML FLUSH IV FLUSH SCH ×2 (09:37→20:51)
[2016-02-27] MEDS: PANTOPRAZOLE SODIUM 40 MG VIAL IV SCH (09:37)
[2016-02-27] MEDS: COLLAGENASE OINT 30 GM TUBE TOP SCH (09:38)
[2016-02-27] MEDS: DIVALPROEX SODIUM SPRINKLES 125 MG CAP PO SCH ×2 (09:38→20:51)
--- NOTE | 2016-02-27 14:52 | HHI.CCPN ---
Subjective Remarks/Hospital Course 02/25: 85-year-old female that resides in a longterm , presented to the ED with altered mental status. The patient was found poorly responsive by the 3 PM shift at the longterm. The longterm facility obtain lab work which resulted in a WBC count of 25,000. A Tabares catheter was placed at the longterm facility and was noted to drain dark reddish brown malodorous cloudy urine. The patient's medical history is significant for severe Parkinsonism and has been basically bedridden. Upon examination in the ED, it was noted she has a deep 2 inch decubitus ulcer in her sacrum. I was told that the patient's is also a patient here in the hospital. In route to the hospital per ED the patient was hypotensive ,SBP 80's. The patient is unresponsive unable to provide any information. Just moaning and opens her eyes to noxious stimuli. [facility] was consulted for treatment and management .Discussion with the son, revealed that the patient is a full code. She has been maintaining her respirations and is saturating 99% on nasal cannula, if respiratory compromise occurs the family requested intubation and all aggressive measures. 02/26: More awake but remains encephalopathic. Not following commands. Tolerating tube feeds. Gram-negative bacteremia noted, ID consult requested. Has not required any pressors since admission. Objective Vital Signs Date Time Temp Pulse Resp B/P Pulse Ox O2 Delivery O2 Flow Rate FiO2 02/27/16 14:00 97 02/27/16 12:00 100.2 10 133/60 100 02/27/16 08:09 21 02/27/16 07:00 Room Air 02/26/16 19:00 2.00 Intake and Output 02/26/16 02/26/16 02/27/16 08:00 16:00 00:00 Intake Total 485 ml 938 ml Output Total 750 ml 375 ml Balance -265 ml 563 ml Result Diagram: 02/27/16 0345 02/27/16 0345 Imaging Last Impressions Head CT 02/25/16 0549 Signed Impressions: Service Date/Time: February 23:22 - CONCLUSION: Bilateral parietal transcortical infarcts appear subacute or chronic, but are new finding compared to December 2014. No evidence of blood products, mass effect, or cerebral edema. Tonny Gutierrez MD Chest X-Ray 02/25/16 2238 Signed Impressions: Service Date/Time: February 22:50 - CONCLUSION: The left subclavian central venous catheter has its tip directed cephalad, projecting over the right medial lung apex. Please see above. No pneumothorax. Morales Gan MD Objective Remarks GENERAL: elderly well-developed, nonresponsive female, with noted tremors SKIN: Warm and dry. HEAD: Atraumatic. Normocephalic. EYES: Opens eyes occasionally.Pupils equal and round. No scleral icterus. No injection or drainage. ENT: No nasal bleeding or discharge. Mucous membranes pink and moist. Nasal cannula at 2 L/m NECK: Trachea midline. No JVD. CARDIOVASCULAR: Normal rate, regular rhythm. RESPIRATORY: No accessory muscle use. Clear to auscultation. Breath sounds equal bilaterally. On nasal cannula 99% GASTROINTESTINAL: Abdomen soft, non-tender, nondistended. No guarding. MUSCULOSKELETAL: Extremities without clubbing, cyanosis, or edema. No obvious deformities. NEUROLOGICAL: Parkinsonian tremors, Opens eyes spontaneously however not verbalizing or following commands. A/P Assessment and Plan Elderly female patient with sepsis secondary to UTI, encephalopathy currently maintaining airway. Extensive discussion by Dr. Go with the son revealed that he would like intubation if required by patient. Discussed goals of care as the patient remains ill with sepsis secondary to UTI, severe Parkinson's, altered mental status, decubitus ulcer, as the prognosis is guarded. The son requests that all measures be taken to include intubation and the patient is a full code. Neurologic: Altered mental status Toxic encephalopathy-secondary to urosepsis Parkinsons disease H/O CVA Depression Insomnia Hearing loss -Neurochecks per ICU protocol -Resume anti-Parkinson's home medications levodopa-carbidopa -We'll hold home meds Lexapro, Remeron, Ativan -Resumed depakote. Depakote level 20 on 02/24. Respiratory: -No acute issues, patient is at risk for possible intubation Cardiovascular: Septic shock H/O cardiac stents Cardiovascular disease Hypertension -Maintain map greater than 65 mmHg, will place central line if needed for vasopressors -After bolus of IVF's patient normotensive SBP 115 -We'll resume home antihypertensive meds when clinically indicated -Patient on Plavix, and ASA 81 mg, will hold for now with noted hematuria Renal: DEEP Renal insufficiency Hematuria S/P renal surgery (past history) -Bolused 3 L normal saline in ED, per sepsis protocol - on normal saline maintenance IV fluid at 75 cc per hour. -- Strict I/Os FEN/GI: Diabetes mellitus -Monitor BMP -Creatinine 2.09 -Hold metformin Heme/ID: Sepsis secondary to UTI Leukocytosis -Received Zosyn and vancomycin and the ED -On vancomycin and Azactam and gentamicin. ID consult requested in view of gram -negative bacteremia which is probably secondary to her UTI. -Lactic acid improved -Tylenol for temp greater than 101 -Monitor CBC-noted hematuria, patient on Plavix Endocrine: Hypothyroidism -Monitor blood glucose every 6 hours per ICU protocol -Obtain thyroid level follow-up results and then resume medication -- SSI MSK: Decubitus ulcer-sacrum -Wound care consult -PT evaluation and treat-functional maintenance daily Prophylaxis: GI Prophylaxis Protonix 40 mg IV/day DVT Prophylaxis -- SCDs Lines: Left subclavian central line Dispo: Patient will be transferred to [facility]/hospitalist service for further medical management. Critical care will be signing off. Please reconsult if needed. Chong Cortes MD Feb 27, 2016 14:52
--- NOTE | 2016-02-27 17:00 | MB ---
cc: YIFAN PRITCHARD MD DATE OF CONSULTATION 02/27/[address] Chong Cortes REASON FOR CONSULTATION Gram-negative chau bacteremia, UTI. HISTORY OF PRESENT ILLNESS This is a 85-year-old white female who was brought to the emergency department from a longterm facility on 02/25 because of poor response. The patient was found to have abnormal lab results including white blood cell count of 25,000. Tabares catheter was placed and the patient was noted to have extremely cloudy urine. Cultures were taken and she was started on antibiotics. The patient had temperature of 100.2 degrees in the emergency department and a white blood cell count was elevated at 23.5. Earlier today, she had a temperature of 102 degrees. The blood culture came back with Proteus. Urine culture has gram-negative chau. The patient had large leukocyte esterase and innumerable white cells in the urine. The patient currently is laying in bed and is moaning. She is not able to provide any meaningful information and she does not answer questions. She is awake and basically stares at me but does not make any attempt to respond. Information is obtained from the medical record. PAST MEDICAL HISTORY 1. Arthritis, 2. Anxiety, depression, 3. Hypercholesteremia, 4. Gastroesophageal reflux disease, 5. Hypertension, 6. Kidney stones 7. Parkinson's disease, 8. Thyroid disease, 9. History of coronary stent, 10. Stress urinary incontinence 11. Sjogren's syndrome ALLERGIES KEFLEX TETRACYCLINE IODINATED CONTRAST WALNUTS, EGGS AND COCONUT. MEDICATIONS 1. Vancomycin, 2. Aztreonam 3. Sinemet 4. Synthroid 5. Insulin 6. Depakote 7. Colace, 8. Potassium. SOCIAL HISTORY The patient is a resident of a longterm facility. No alcohol, tobacco or illicit drugs. FAMILY HISTORY Unable to obtain. REVIEW OF SYSTEMS Unable to obtain PHYSICAL EXAMINATION GENERAL: this is a slender female who is in no acute distress. She is awake but not verbally responsive. VITAL SIGNS: Temperature of 100.8, BP 135/65, respirations 20, heart rate 100. HEENT: Head is atraumatic. Extraocular movements appear grossly intact. No icterus. Nose - Septum is midline. No drainage. Oropharynx - no visible lesions. Slightly dry mucosa. NECK: Supple without adenopathy. LUNGS: Clear breath sounds HEART: Regular S1-S2 without audible murmurs or rubs or gallops. ABDOMEN: Hypoactive bowel sounds. Soft, nontender. No palpable masses. RECTAL: Not performed. EXTREMITIES: No clubbing or cyanosis or edema. SKIN: No rash. The patient reportedly has a decubiti ulceration at the sacrum. NEUROLOGIC: Unable to fully assess. LABORATORY DATA WBC 15.7, platelets 175, 77% neutrophils, hemoglobin 9.5, creatinine 1.48, BUN 64, sodium 154. IMPRESSION 1. Gram-negative bacterial sepsis due to Proteus 2. UTI due to gram-negative chau which is likely Proteus and likely the cause of the bacteremia and sepsis 3. Altered mental status likely baseline and possibly infection making it worse. RECOMMENDATIONS 1. Continue aztreonam. 2. Continue vancomycin for now 3. Monitor white blood cell count and clinical response. Thank you for this consultation. The patient's progress will be monitored and further recommendations will be given on followup if necessary. Yifan Pritchard MD FD/ /12:43 PM /4:41 PM
[2016-02-27 20:35] LABS: POTASSIUM 3.7 MEQ/L (3.5-5.1)
[2016-02-27] MEDS: MUPIROCIN 2% OINT 1 APPLIC/GM SYR NASAL SCH (20:51)
[2016-02-27] MEDS ORDERED: GENTAMICIN INJ 100 MG in SODIUM CHLORIDE 0.9% INJ 100 ML IV SCH (21:00)
[2016-02-27] MEDS ORDERED: VANCOMYCIN 1,000 MG/NS 250 ML IV SCH ×2 (23:00)
[2016-02-28] VITALS (14 sets, daily range): BP systolic 135–161; BP diastolic 57–74; PULSE 76–102; RESP 15–25; TEMP 98.4–101; O2SAT 97–100
[2016-02-28] MEDS: AZTREONAM INJ 1,000 MG in SODIUM CHLORIDE 0.9% INJ 100 ML IV SCH ×2 (00:24→13:26)
[2016-02-28] MEDS: CHLORHEXIDINE GLUCONATE 2 % 1 PACK (2 CLOTHS) TOP SCH (03:54)
[2016-02-28 04:32] LABS: AUTOMATED NEUTROPHIL # 6.7 TH/MM3 (1.8-7.7); BASOPHIL % 0.2 % (0.0-2.0); EOSINOPHIL % 0.5 % (0.0-4.0); HEMATOCRIT 30.3 % (35.0-46.0); LYMPH % 29.4 % (9.0-44.0); MEAN CELL VOLUME 94.5 FL (80.0-100.0); MEAN CORPUSCULAR HEMOGLOBIN 31.7 PG (27.0-34.0); MEAN CORPUSCULAR HGB CONC 33.5 % (32.0-36.0); NEUT % 64.9 % (16.0-70.0); PLATELET COUNT 130 TH/MM3 (150-450); RED BLOOD COUNT 3.21 MIL/MM3 (4.00-5.30); RED CELL DISTRIBUTION WIDTH 14.1 % (11.6-17.2); WHITE BLOOD COUNT 10.3 TH/MM3 (4.0-11.0)
[2016-02-28 04:35] LABS: HEMO FLAGS AUTO DIFF
[2016-02-28 05:02] LABS: ALKALINE PHOSPHATASE 146 U/L (45-117); ALT (GPT) 8 U/L (10-53); ANION GAP 12 MEQ/L (5-15); AST (GOT) 28 U/L (15-37); BLOOD UREA NITROGEN 41 MG/DL (7-18); CHLORIDE 120 MEQ/L (98-107); GLOMERULAR FILTRATION RATE 49 ML/MIN (>89); POTASSIUM 3.7 MEQ/L (3.5-5.1); SODIUM (NA) 152 MEQ/L (136-145); TOTAL BILIRUBIN ADULT 0.3 MG/DL (0.2-1.0)
[2016-02-28 05:21] LABS: BANDS 15 % (0-6); NEUTROPHIL # MANUAL DIFF 7.5 TH/MM3 (1.8-7.7); PLATELET ESTIMATE SMEAR LOW (NORMAL); PLATELET MORPHOLOGY NORMAL (NORMAL); POLYS (SEG NEUTROPHILS) 58 % (16-70); SCAN/DIFF FINAL DIFF MANUAL; WBC DIFF SAMPLE 100
[2016-02-28 05:22] LABS: KERATOCYTES OCC (NORMAL)
[2016-02-28] MEDS: FREE WATER G-TUBE SCH ×3 (05:26→18:31)
[2016-02-28] MEDS: LEVOTHYROXINE SODIUM 75 MCG TAB PO SCH (05:26)
[2016-02-28] MEDS: CARBIDOPA/LEVODOPA 25 MG/100 MG TAB PO SCH ×3 (05:26→21:14)
[2016-02-28] MEDS: ACETAMINOPHEN 650 MG/20.3 ML UDC PO PRN ×2 (05:27→11:35)
[2016-02-28] MEDS: INSULIN ASPART SUPPLEMENTAL SCALE SQ SCH ×4 (06:47→21:00)
[2016-02-28] MEDS: MUPIROCIN 2% OINT 1 APPLIC/GM SYR NASAL SCH ×2 (09:16→20:06)
[2016-02-28] MEDS: DIVALPROEX SODIUM SPRINKLES 125 MG CAP PO SCH ×2 (09:16→20:06)
[2016-02-28] MEDS: COLLAGENASE OINT 30 GM TUBE TOP SCH (09:17)
[2016-02-28] MEDS: SODIUM CHLORIDE 0.9% FLUSH 5 ML FLUSH IV FLUSH SCH ×2 (09:17→20:05)
[2016-02-28] MEDS: PANTOPRAZOLE SODIUM 40 MG VIAL IV SCH (09:17)
[2016-02-28] MEDS: SODIUM CHLOR 0.9% 1000 ML INJ 1,000 ML IV SCH (11:00)
[2016-02-28] MEDS: DOCUSATE SODIUM 100 MG/10 ML UDC G-TUBE SCH (12:45)
--- NOTE | 2016-02-28 13:57 | HHI.PR ---
Subjective Remarks lethargic, opened eyes and turned to call of her name nonverbal- no family at bedside Objective Vitals Vital Signs Date Time Temp Pulse Resp B/P Pulse Ox O2 Delivery O2 Flow Rate FiO2 02/28/16 12:53 15 02/28/16 10:00 93 02/28/16 08:00 76 02/28/16 08:00 99.0 76 15 144/62 97 02/28/16 07:59 97 21 02/28/16 07:00 99 Room Air 02/28/16 06:00 94 02/28/16 04:00 102 02/28/16 04:00 100.7 102 20 153/74 100 02/28/16 02:00 102 02/28/16 00:00 100 02/28/16 00:00 99.4 100 19 135/57 99 02/27/16 22:00 110 02/27/16 20:00 110 02/27/16 20:00 101.7 110 22 139/61 99 02/27/16 19:48 98 21 02/27/16 19:00 99 Room Air 02/27/16 18:00 105 02/27/16 16:00 100.1 97 19 133/67 98 02/27/16 16:00 98 02/27/16 14:00 97 I/O 02/27/16 02/27/16 02/27/16 02/28/16 02/28/16 02/28/16 07:00 15:00 23:00 07:00 15:00 23:00 Intake Total 955 ml 1367 ml 1116 ml 1456 ml Output Total 525 ml 500 ml 675 ml 800 ml Balance 430 ml 867 ml 441 ml 656 ml Intake IV Total 613 ml 837 ml 718 ml 809 ml Tube Feeding 242 ml 130 ml 298 ml 247 ml Tube Irrigant 100 ml 400 ml 100 ml 400 ml Output Urine Total 525 ml 500 ml 675 ml 800 ml Gastric Drainage Total 0 ml 0 ml 0 ml # Bowel Movements 0 0 1 2 Result Diagram: 02/28/16 0400 02/28/16 0400 Imaging Last Impressions Chest X-Ray 02/26/16 0000 Signed Impressions: Service Date/Time: Friday, February 26, 2016 06:13 - CONCLUSION: Gastric tube tip and side-port within the stomach. Central line in good position. Tonny Gutierrez MD Head CT 02/25/16 2238 Signed Impressions: Service Date/Time: February 23:22 - CONCLUSION: Bilateral parietal transcortical infarcts appear subacute or chronic, but are new finding compared to December 2014. No evidence of blood products, mass effect, or cerebral edema. Tonny Gutierrez MD Objective Remarks lethargic anicteric, NGT in place dry oral mucosa supple neck left chest wall- central line in place decreased breath sounds, no rales regular rhythm abdomen- soft, good bowel sounds zamarripa in place Upper extremities + edema Lower extremities no edema withdraws all extremities to tactile stimuli Urinary Catheter: Yes Assessment to: Continue Zamarripa insert reason: Prolonged Immobilization Date of Insertion: Feb 25, 2016 Vascular Central Line Catheter: Yes Assessment to: Continue Date of Insertion: Feb 25, 2016 A/P Assessment and Plan This is a critically ill elderly female patient with suspected urosepsis, altered mental status currently maintaining airway. The patient is at risk for possible intubation. Extensive discussion with the son revealed that he would like intubation if required by patient. Discussed goals of care as the patient remains critically ill with urosepsis, severe Parkinson's, altered mental status , decubitus ulcer, as the prognosis is guarded. The son requests that all measures be taken to include intubation and the patient is a full code. Septic Shock secondary to Proteus UTI Toxic encephalopathy-secondary to urosepsis - ID ff. On Azacatam and Vancomycin History of Parkinsons disease H/O CVA,Depression, Hearing loss -Neurochecks per ICU protocol -Resume anti-Parkinson's home medications levodopa-carbidopa -We'll hold home meds Lexapro, Remeron, Ativan -Hold Depakote, obtain Depakote levels -CT shows ? subacute infarcts - will get an MRI of the brain in am - - swallowing evaluation in am Respiratory: -No acute issues, patient is at risk for possible intubation H/O cardiac stents Cardiovascular disease Hypertension -Maintain map greater than 65 mmHg, will place central line if needed for vasopressors -After bolus of IVF's patient normotensive SBP 115 -We'll resume home antihypertensive meds when clinically indicated -Patient on Plavix, and ASA 81 mg, held due to hematuria - consider restarting tomorrow Renal: DEEP- improved with IVF Hypernatremia Hematuria- resolved- zamarripa draining grossly clear yellow urine S/P renal surgery (past history) -0.9 NaCl @42cc/hr- change IVF to 1/2 NS -- continue free water /GT -- Strict I/Os - FF BMP FEN/GI: Diabetes mellitus -Insert Dobbhoff tube, aspiration precautions tolerating tube feedings -Hold metformin Endocrine: Hypothyroidism -Monitor blood glucose every 6 hours per ICU protocol -Obtain thyroid level follow-up results and then resume medication -- SSI MSK: Decubitus ulcer-sacrum -Wound care consult -PT evaluation and treat-functional maintenance daily Prophylaxis: GI Prophylaxis Protonix 40 mg IV/day DVT Prophylaxis -- SCDs Lines: Peripheral IVs 2. Central line if indicated Dispo: Blanca Norman MD Feb 28, 2016 13:57
[2016-02-28] MEDS: SODIUM CHLOR 0.45% 1000 ML INJ 1,000 ML IV SCH (14:47)
--- NOTE | 2016-02-28 15:32 | HHI.IDPN ---
Note Infectious Disease Note Patient is in no distress. Occasional moaning but not verbal. Afebrile. No meaningful interaction. On O2 via nasal canula. This is a 85-year-old white female who was brought to the emergency department from a halfway facility on 02/25 because of poor response. The patient was found to have abnormal lab results including white blood cell count of 25,000. Tabares catheter was placed and the patient was noted to have extremely cloudy urine. PAST MEDICAL HISTORY 1. Arthritis, 2. Anxiety, depression, 3. Hypercholesteremia, 4. Gastroesophageal reflux disease, 5. Hypertension, 6. Kidney stones 7. Parkinson's disease, 8. Thyroid disease, 9. History of coronary stent, 10. Stress urinary incontinence 11. Sjogren's syndrome ALLERGIES KEFLEX TETRACYCLINE IODINATED CONTRAST WALNUTS, EGGS AND COCONUT. Current Medications Medications (Trade) Dose Ordered Sig/[place] Route PRN Reason Start Time Stop Time Status Last Admin Dose Admin IV Flush (NS Flush) 2 ml UNSCH PRN IV FLUSH FLUSH AFTER USING IV ACCESS 02/26/16 00:45 IV Flush (NS Flush) 2 ml BID IV FLUSH 02/26/16 09:00 02/28/16 09:17 Pantoprazole Sodium (Protonix Inj) 40 mg DAILY IV 02/26/16 09:00 02/28/16 09:17 Ondansetron HCl (Zofran Inj) 4 mg Q6H PRN IV NAUSEA OR VOMITING 02/26/16 00:45 Docusate Sodium (Colace Liq) 100 mg Q12H G-TUBE 02/26/16 00:45 02/27/16 23:49 Bisacodyl (Dulcolax Supp) 10 mg DAILY PRN RECTAL CONSTIPATION 02/26/16 00:45 Magnesium Hydroxide (Milk Of Magnesia Liq) 30 ml Q12H PRN PO CONSTIPATION 02/26/16 00:45 Miscellaneous Information 1 Q361D XX 02/26/16 00:45 Chlorhexidine Gluconate (Chlorhexidine 2% Cloth) 3 pack Taper DAILY@04 TOP 02/26/16 04:00 02/21/17 03:59 02/28/16 03:54 Chlorhexidine Gluconate 3 pack 3 pack UNSCH PRN TOP HYGIENIC CARE 02/26/16 00:45 Potassium Chloride 100 ml @ 50 mls/hr Q2H PRN IV For Potassium 2.8 - 3.2 mEq/L 02/26/16 00:45 Potassium Chloride (KCl 20 Meq Premix Inj) 100 ml @ 50 mls/hr Q2H PRN IV For Potassium 2.8 - 3.2 mEq/L 02/26/16 00:45 Potassium Chloride 40 meq 40 meq UNSCH PRN PO/TUBE For Potassium 3.3 - 3.5 mEq/L 02/26/16 00:45 Potassium Chloride 100 ml @ 25 mls/hr UNSCH PRN IV For Potassium 3.3 - 3.5 mEq/L 02/26/16 00:45 Potassium Chloride 100 ml @ 50 mls/hr Q2H PRN IV For Potassium 3.3 - 3.5 mEq/L 02/26/16 00:45 Magnesium Sulfate/ Sodium Chloride (Magnesium Sulfate Inj/NS Inj) 100 ml @ 50 mls/hr UNSCH PRN IV For Magnesium 0.9 - 1.1 mg/dL 02/26/16 00:45 Magnesium Oxide 800 mg 800 mg UNSCH PRN PO For Magnesium 1.2 - 1.6 mg/dL 02/26/16 00:45 Magnesium Sulfate/ Sodium Chloride (Magnesium Sulfate Inj/NS Inj) 100 ml @ 50 mls/hr UNSCH PRN IV For Magnesium 1.2 - 1.6 mg/dL 02/26/16 00:45 Potassium Phosphate 2000 mg 2,000 mg Q4H PRN PO For Phosphorus < 2.5 mg/dL 02/26/16 00:45 Sodium Phosphate/ Sodium Chloride (Sodium Phosphate Inj/NS 250 ml Inj) 250 ml @ 42 mls/hr UNSCH PRN IV For Phosphorus < 2.5 mg/dL 02/26/16 00:45 Potassium Chloride (KCl 40 Meq/30 ml Liq) 40 meq UNSCH PRN PO/TUBE SEE LABEL COMMENTS 02/26/16 00:45 Potassium Phosphate 2000 mg 2,000 mg UNSCH PRN PO/TUBE SEE LABEL COMMENTS 02/26/16 00:45 Potassium Phosphate/Sodium Chloride (Potassium Phosphate Inj/NS 250 ml Inj) 260 ml @ 42 mls/hr UNSCH PRN IV SEE LABEL COMMENTS 02/26/16 00:45 02/27/16 06:06 Dextrose (D50w (Vial) Inj) 25 ml UNSCH PRN IV PUSH HYPOGLYCEMIA-SEE COMMENTS 02/26/16 01:00 Glucagon 1 mg 1 mg UNSCH PRN OTHER HYPOGLYCEMIA-SEE COMMENTS 02/26/16 01:00 Pharmacy Profile Note 0 ml @ 0 mls/hr UNSCH XX 02/26/16 01:00 Aztreonam 1000 mg/ Sodium Chloride 100 ml @ 200 mls/hr Q12H IV 02/26/16 02:00 02/28/16 13:26 Pharmacy Profile Note (Gentamicin Consult Pharmacy) 0 ml @ 0 mls/hr UNSCH XX 02/26/16 01:00 Carbidopa/Levodopa (Sinemet 25-100 Mg) 1 tab Q8HR PO 02/26/16 06:00 02/28/16 13:26 Acetaminophen (Tylenol 650 Mg/ 20 ml Liq) 650 mg Q6H PRN PO temp greater than 101 02/26/16 11:15 02/28/16 11:35 Divalproex Sodium (Depakote Sprinkles) 125 mg BID PO 02/26/16 12:00 02/28/16 09:16 Levothyroxine Sodium (Synthroid) 37.5 mcg DAILY@0600 PO 02/26/16 12:00 02/28/16 05:26 Miscellaneous (Pill Splitter) 1 ea UNSCH PRN OTHER SEE LABEL COMMENTS 02/26/16 11:45 Collagenase (Santyl Oint) 1 applic DAILY TOP 02/27/16 09:00 02/28/16 09:17 Collagenase (Santyl Oint) 1 applic UNSCH PRN TOP SEE LABEL COMMENTS 02/26/16 16:45 Water (Free Water) VOLUME: 200 ML Q6HR G-TUBE 02/27/16 09:00 02/28/16 12:35 Miscellaneous Information Patient in critical care unit? Ass... Q361D XX 02/27/16 15:15 02/27/16 15:15 Mupirocin 1 applic 1 applic BID NASAL 02/27/16 21:00 02/28/16 09:16 Gentamicin Sulfate 100 mg/ Sodium Chloride 102.5 ml @ 200 mls/hr Q24H IV 02/27/16 21:00 Hold 02/27/16 20:51 Vancomycin HCl/ Sodium Chloride (Vancomycin Inj/ NS 250 ml Inj) 250 ml @ 250 mls/hr Q24H IV 02/28/16 18:00 Miscellaneous Information SPECIFIC LAB TO BE DRAWN:VANCOMYCIN TROUGH DATE TO... ONCE ONCE XX 03/01/16 17:45 03/01/16 17:46 Sodium Chloride (1/2 NS 1000 ml Inj) 1,000 ml @ 70 mls/hr [id number] IV 02/28/16 14:30 02/28/16 14:47 SOCIAL HISTORY The patient is a resident of a halfway facility. No alcohol, tobacco or illicit drugs. FAMILY HISTORY Unable to obtain. REVIEW OF SYSTEMS Unable to obtain OBJECTIVE: Laboratory Tests Test 02/27/16 02/28/16 03:45 04:00 White Blood Count 15.7 TH/MM3 10.3 TH/MM3 Red Blood Count 3.04 MIL/MM3 3.21 MIL/MM3 Hemoglobin 9.5 GM/DL 10.1 GM/DL Hematocrit 29.2 % 30.3 % Mean Corpuscular Volume 95.9 FL 94.5 FL Mean Corpuscular Hemoglobin 31.3 PG 31.7 PG Mean Corpuscular Hemoglobin 32.6 % 33.5 % Concent Red Cell Distribution Width 14.2 % 14.1 % Platelet Count 175 TH/MM3 130 TH/MM3 Mean Platelet Volume 10.2 FL 9.6 FL Neutrophils (%) (Auto) 77.0 % 64.9 % Lymphocytes (%) (Auto) 18.7 % 29.4 % Monocytes (%) (Auto) 3.6 % 5.0 % Eosinophils (%) (Auto) 0.6 % 0.5 % Basophils (%) (Auto) 0.1 % 0.2 % Neutrophils # (Auto) 12.1 TH/MM3 6.7 TH/MM3 Lymphocytes # (Auto) 2.9 TH/MM3 3.0 TH/MM3 Monocytes # (Auto) 0.6 TH/MM3 0.5 TH/MM3 Eosinophils # (Auto) 0.1 TH/MM3 0.0 TH/MM3 Basophils # (Auto) 0.0 TH/MM3 0.0 TH/MM3 CBC Comment DIFF FINAL AUTO DIFF Differential Comment FINAL DIFF MANUAL Differential Total Cells 100 Counted Neutrophils % (Manual) 58 % Band Neutrophils % 15 % Lymphocytes % 23 % Monocytes % 4 % Neutrophils # (Manual) 7.5 TH/MM3 Platelet Estimate LOW Platelet Morphology Comment NORMAL Keratocytes OCC Laboratory Tests Test 02/27/16 02/27/16 02/28/16 03:45 20:00 04:00 Sodium Level 154 MEQ/L 152 MEQ/L Potassium Level 3.6 MEQ/L 3.7 MEQ/L 3.7 MEQ/L Chloride Level 124 MEQ/L 120 MEQ/L Carbon Dioxide Level 20.1 MEQ/L 20.0 MEQ/L Anion Gap 10 MEQ/L 12 MEQ/L Blood Urea Nitrogen 64 MG/DL 41 MG/DL Creatinine 1.48 MG/DL 1.07 MG/DL Estimat Glomerular Filtration 33 ML/MIN 49 ML/MIN Rate Random Glucose 140 MG/DL 131 MG/DL Calcium Level 8.9 MG/DL 8.1 MG/DL Phosphorus Level 2.0 MG/DL 2.5 MG/DL Magnesium Level 2.0 MG/DL Total Bilirubin 0.3 MG/DL Aspartate Amino Transf 28 U/L (AST/SGOT) Alanine Aminotransferase 8 U/L (ALT/SGPT) Alkaline Phosphatase 146 U/L Total Protein 5.3 GM/DL Albumin 1.8 GM/DL Microbiology Date/Time Procedure Status Source Growth 02/25/16 22:20 Aerobic Blood Culture - Preliminary Resulted Blood Peripheral NO GROWTH IN 3 DAYS 02/25/16 22:20 Anaerobic Blood Culture - Final Resulted Proteus Mirabilis 02/25/16 22:30 Aerobic Blood Culture - Final Complete Blood Peripheral Proteus Mirabilis 02/25/16 22:30 Anaerobic Blood Culture - Final Complete Proteus Mirabilis 02/25/16 22:30 Urine Culture - Final Complete Urine Catheterized Urine Proteus Mirabilis Escherichia Coli 02/28/16 04:16 Aerobic Blood Culture Received Blood Peripheral Pending 02/28/16 04:16 Anaerobic Blood Culture Received Blood Peripheral Pending 02/27/16 02/27/16 02/28/16 15:00 23:00 07:00 Intake Total 1367 ml 1116 ml 1456 ml Output Total 500 ml 675 ml 800 ml Balance 867 ml 441 ml 656 ml Intake IV Total 837 ml 718 ml 809 ml Tube Feeding 130 ml 298 ml 247 ml Tube Irrigant 400 ml 100 ml 400 ml Output Urine Total 500 ml 675 ml 800 ml Gastric Drainage Total 0 ml 0 ml 0 ml # Bowel Movements 0 1 2 Vital Signs Date Time Temp Pulse Resp B/P Pulse Ox O2 Delivery O2 Flow Rate FiO2 02/28/16 14:00 82 02/28/16 12:53 15 02/28/16 12:00 98.5 82 15 151/65 100 02/28/16 12:00 92 02/28/16 10:00 93 02/28/16 08:00 76 02/28/16 08:00 99.0 76 15 144/62 97 02/28/16 07:59 97 21 02/28/16 07:00 99 Room Air 02/28/16 06:00 94 02/28/16 04:00 102 02/28/16 04:00 100.7 102 20 153/74 100 02/28/16 02:00 102 02/28/16 00:00 100 02/28/16 00:00 99.4 100 19 135/57 99 02/27/16 22:00 110 02/27/16 20:00 110 02/27/16 20:00 101.7 110 22 139/61 99 02/27/16 19:48 98 21 02/27/16 19:00 99 Room Air 02/27/16 18:00 105 02/27/16 16:00 100.1 97 19 133/67 98 02/27/16 16:00 98 PHYSICAL EXAMINATION GENERAL: No acute distress. She is awake but not verbally responsive. HEENT: Head is atraumatic. Extraocular movements appear grossly intact. No icterus. Nose - Septum is midline. No drainage. Oropharynx - no visible lesions. Slightly dry mucosa. NECK: Supple without adenopathy. LUNGS: Clear breath sounds HEART: Regular S1-S2 without audible murmurs or rubs or gallops. ABDOMEN: Hypoactive bowel sounds. Soft, nontender. No palpable masses. EXTREMITIES: No clubbing or cyanosis or edema. SKIN: No rash. NEUROLOGIC: Unable to fully assess. IMPRESSION 1. Gram-negative bacterial sepsis due to Proteus 2. UTI due to gram-negative chau which is likely Proteus and likely the cause of the bacteremia and sepsis 3. Altered mental status likely baseline and possibly infection making it worse. RECOMMENDATIONS 1. Continue aztreonam. 2. Stop vancomycin. 3. Follow WBC. 4. Monitor clinical response. Yifan Allen MD Feb 28, 2016 15:32
[2016-02-28] MEDS ORDERED: VANCOMYCIN 1,000 MG/NS 250 ML IV SCH ×2 (18:00)
--- NOTE | 2016-02-28 18:25 | RADRPT ---
EXAM DATE/TIME: 02/28/2016 17:49 [facility] COMPARISON: CT BRAIN W/O CONTRAST, February 25, 2016, 23:22. INDICATIONS : Altered mental status. Sepsis. MEDICAL HISTORY : Myocardial infarction. Dementia. Parkinson's. SURGICAL HISTORY : Appendectomy. Cholecystectomy. Hysterectomy. ENCOUNTER: Subsequent ACUITY: 2 day PAIN SCORE: 0/10 LOCATION: Cranial TECHNIQUE: Multiplanar, multisequence MRI of the brain was performed without contrast. FINDINGS: There is evidence of a tiny acute lacunar infarct involving the left cerebellar hemisphere. There ar e areas of encephalomalacia involving the left temporal lobe and right occipital lobe consistent with probable old infarcts. Moderate to severe periventricular and subcortical white matter small-vessel ischemic changes are noted bilaterally. Diffuse cerebral atrophy is noted. Scattered old lacunar i nfarcts are noted within the bilateral basal ganglia. There is an old tiny lacunar infarct within th e left cerebellar hemisphere also. There is a tiny mucous retention cyst within the right posterior maxillary sinus. CONCLUSION: 1. Tiny acute lacunar infarct involving the left cerebellar hemisphere. 2. Old infarcts involving the left temporal and right occipital lobes. 3. Moderate to severe periventricular and subcortical white matter small-vessel ischemic changes yeimy aterally. 4. Diffuse cerebral atrophy. 5. No acute hemorrhage, midline shift or extra-axial fluid collections. 6. Scattered old lacunar infarcts within the bilateral basal ganglia. 7. Old tiny lacunar infarct within the left cerebellar hemisphere. Kayode Olivarez MD on February 28, 2016 at 18:13 Board Certified Radiologist. This report was verified electronically.
[2016-02-28] MEDS: NYSTATIN SUSP 500,000 U/5 ML CUP SWAB SCH (20:06)
[2016-02-29] VITALS (24 sets, daily range): BP systolic 128–167; BP diastolic 56–83; PULSE 80–97; RESP 15–20; TEMP 98.5–100.6; O2SAT 95–99
[2016-02-29] MEDS: FREE WATER G-TUBE SCH ×5 (00:30→22:58)
[2016-02-29] MEDS: DOCUSATE SODIUM 100 MG/10 ML UDC G-TUBE SCH ×3 (00:45→22:59)
[2016-02-29] MEDS: AZTREONAM INJ 1,000 MG in SODIUM CHLORIDE 0.9% INJ 100 ML IV SCH ×2 (02:00→14:23)
[2016-02-29] MEDS: CHLORHEXIDINE GLUCONATE 2 % 1 PACK (2 CLOTHS) TOP SCH (03:12)
[2016-02-29 04:17] LABS: RANDOM GENTAMICIN 0.4 MCG/ML
[2016-02-29] MEDS: SODIUM CHLOR 0.45% 1000 ML INJ 1,000 ML IV SCH ×2 (04:48→19:06)
[2016-02-29] MEDS: CARBIDOPA/LEVODOPA 25 MG/100 MG TAB PO SCH ×3 (05:37→22:58)
[2016-02-29] MEDS: LEVOTHYROXINE SODIUM 75 MCG TAB PO SCH (05:37)
[2016-02-29] MEDS: INSULIN ASPART SUPPLEMENTAL SCALE SQ SCH ×4 (06:03→21:00)
[2016-02-29] MEDS: PANTOPRAZOLE SODIUM 40 MG VIAL IV SCH (08:40)
[2016-02-29] MEDS: SODIUM CHLORIDE 0.9% FLUSH 5 ML FLUSH IV FLUSH SCH ×2 (08:40→20:42)
[2016-02-29] MEDS: NYSTATIN SUSP 500,000 U/5 ML CUP SWAB SCH ×4 (08:41→20:42)
[2016-02-29] MEDS: COLLAGENASE OINT 30 GM TUBE TOP SCH (08:49)
[2016-02-29] MEDS: DIVALPROEX SODIUM SPRINKLES 125 MG CAP PO SCH ×2 (08:55→20:42)
[2016-02-29] MEDS: ACETAMINOPHEN 650 MG/20.3 ML UDC PO PRN (08:56)
[2016-02-29] MEDS: MUPIROCIN 2% OINT 1 APPLIC/GM SYR NASAL SCH ×2 (09:00→20:42)
--- NOTE | 2016-02-29 11:48 | HHI.IDPN ---
Note Infectious Disease Note Patient is in no distress. Awake, non verbal. Not following commands. Temp of 101 last night. No meaningful interaction. On O2 via nasal canula. This is a 85-year-old white female who was brought to the emergency department from a halfway facility on 02/26/16 because of poor response. PAST MEDICAL HISTORY 1. Arthritis, 2. Anxiety, depression, 3. Hypercholesteremia, 4. Gastroesophageal reflux disease, 5. Hypertension, 6. Kidney stones 7. Parkinson's disease, 8. Thyroid disease, 9. History of coronary stent, 10. Stress urinary incontinence 11. Sjogren's syndrome ALLERGIES KEFLEX TETRACYCLINE IODINATED CONTRAST WALNUTS, EGGS AND COCONUT. Current Medications Medications (Trade) Dose Ordered Sig/[place] Route PRN Reason Start Time Stop Time Status Last Admin Dose Admin IV Flush (NS Flush) 2 ml UNSCH PRN IV FLUSH FLUSH AFTER USING IV ACCESS 02/26/16 00:45 IV Flush (NS Flush) 2 ml BID IV FLUSH 02/26/16 09:00 02/29/16 08:40 Pantoprazole Sodium (Protonix Inj) 40 mg DAILY IV 02/26/16 09:00 02/29/16 08:40 Ondansetron HCl (Zofran Inj) 4 mg Q6H PRN IV NAUSEA OR VOMITING 02/26/16 00:45 Docusate Sodium (Colace Liq) 100 mg Q12H G-TUBE 02/26/16 00:45 02/27/16 23:49 Bisacodyl (Dulcolax Supp) 10 mg DAILY PRN RECTAL CONSTIPATION 02/26/16 00:45 Magnesium Hydroxide (Milk Of Magnesia Liq) 30 ml Q12H PRN PO CONSTIPATION 02/26/16 00:45 Miscellaneous Information 1 Q361D XX 02/26/16 00:45 Chlorhexidine Gluconate (Chlorhexidine 2% Cloth) 3 pack Taper DAILY@04 TOP 02/26/16 04:00 02/21/17 03:59 02/28/16 03:54 Chlorhexidine Gluconate 3 pack 3 pack UNSCH PRN TOP HYGIENIC CARE 02/26/16 00:45 Potassium Chloride 100 ml @ 50 mls/hr Q2H PRN IV For Potassium 2.8 - 3.2 mEq/L 02/26/16 00:45 Potassium Chloride (KCl 20 Meq Premix Inj) 100 ml @ 50 mls/hr Q2H PRN IV For Potassium 2.8 - 3.2 mEq/L 02/26/16 00:45 Potassium Chloride 40 meq 40 meq UNSCH PRN PO/TUBE For Potassium 3.3 - 3.5 mEq/L 02/26/16 00:45 Potassium Chloride 100 ml @ 25 mls/hr UNSCH PRN IV For Potassium 3.3 - 3.5 mEq/L 02/26/16 00:45 Potassium Chloride 100 ml @ 50 mls/hr Q2H PRN IV For Potassium 3.3 - 3.5 mEq/L 02/26/16 00:45 Magnesium Sulfate/ Sodium Chloride (Magnesium Sulfate Inj/NS Inj) 100 ml @ 50 mls/hr UNSCH PRN IV For Magnesium 0.9 - 1.1 mg/dL 02/26/16 00:45 Magnesium Oxide 800 mg 800 mg UNSCH PRN PO For Magnesium 1.2 - 1.6 mg/dL 02/26/16 00:45 Magnesium Sulfate/ Sodium Chloride (Magnesium Sulfate Inj/NS Inj) 100 ml @ 50 mls/hr UNSCH PRN IV For Magnesium 1.2 - 1.6 mg/dL 02/26/16 00:45 Potassium Phosphate 2000 mg 2,000 mg Q4H PRN PO For Phosphorus < 2.5 mg/dL 02/26/16 00:45 Sodium Phosphate/ Sodium Chloride (Sodium Phosphate Inj/NS 250 ml Inj) 250 ml @ 42 mls/hr UNSCH PRN IV For Phosphorus < 2.5 mg/dL 02/26/16 00:45 Potassium Chloride (KCl 40 Meq/30 ml Liq) 40 meq UNSCH PRN PO/TUBE SEE LABEL COMMENTS 02/26/16 00:45 Potassium Phosphate 2000 mg 2,000 mg UNSCH PRN PO/TUBE SEE LABEL COMMENTS 02/26/16 00:45 Potassium Phosphate/Sodium Chloride (Potassium Phosphate Inj/NS 250 ml Inj) 260 ml @ 42 mls/hr UNSCH PRN IV SEE LABEL COMMENTS 02/26/16 00:45 02/27/16 06:06 Dextrose (D50w (Vial) Inj) 25 ml UNSCH PRN IV PUSH HYPOGLYCEMIA-SEE COMMENTS 02/26/16 01:00 Glucagon 1 mg 1 mg UNSCH PRN OTHER HYPOGLYCEMIA-SEE COMMENTS 02/26/16 01:00 Aztreonam/Sodium Chloride (Azactam Inj/NS Inj) 100 ml @ 200 mls/hr Q12H IV 02/26/16 02:00 02/29/16 02:00 Carbidopa/Levodopa (Sinemet 25-100 Mg) 1 tab Q8HR PO 02/26/16 06:00 02/29/16 05:37 Acetaminophen (Tylenol 650 Mg/ 20 ml Liq) 650 mg Q6H PRN PO temp greater than 101 02/26/16 11:15 02/29/16 08:56 Divalproex Sodium (Depakote Sprinkles) 125 mg BID PO 02/26/16 12:00 02/29/16 08:55 Levothyroxine Sodium (Synthroid) 37.5 mcg DAILY@0600 PO 02/26/16 12:00 02/29/16 05:37 Miscellaneous (Pill Splitter) 1 ea UNSCH PRN OTHER SEE LABEL COMMENTS 02/26/16 11:45 Collagenase (Santyl Oint) 1 applic DAILY TOP 02/27/16 09:00 02/29/16 08:49 Collagenase (Santyl Oint) 1 applic UNSCH PRN TOP SEE LABEL COMMENTS 02/26/16 16:45 Water (Free Water) VOLUME: 200 ML Q6HR G-TUBE 02/27/16 09:00 02/29/16 05:37 Miscellaneous Information Patient in critical care unit? Ass... Q361D XX 02/27/16 15:15 02/27/16 15:15 Mupirocin 1 applic 1 applic BID NASAL 02/27/16 21:00 02/29/16 09:00 Sodium Chloride (1/2 NS 1000 ml Inj) 1,000 ml @ 70 mls/hr [id number] IV 02/28/16 14:30 02/28/16 14:47 Nystatin (Mycostatin Liq) 5 ml QID SWAB 02/28/16 21:00 02/29/16 08:41 SOCIAL HISTORY The patient is a resident of a halfway facility. No alcohol, tobacco or illicit drugs. FAMILY HISTORY Unable to obtain. REVIEW OF SYSTEMS Unable to obtain OBJECTIVE: Vital Signs Date Time Temp Pulse Resp B/P Pulse Ox O2 Delivery O2 Flow Rate FiO2 02/29/16 10:07 18 02/29/16 10:00 88 02/29/16 09:00 93 02/29/16 08:11 99 21 02/29/16 08:00 88 02/29/16 08:00 98.5 91 18 128/72 95 02/29/16 07:00 95 Room Air 02/29/16 07:00 97 02/29/16 05:00 88 02/29/16 04:00 99.0 87 17 140/67 98 02/29/16 04:00 87 02/29/16 03:00 90 02/29/16 02:00 87 02/29/16 01:00 90 02/29/16 00:00 100.6 91 15 141/56 99 02/29/16 00:00 91 02/28/16 22:00 89 02/28/16 20:01 100 21 02/28/16 20:00 98 02/28/16 20:00 101.0 98 25 140/65 100 02/28/16 19:00 100 Room Air 02/28/16 18:00 89 02/28/16 16:00 98.4 83 19 161/65 100 02/28/16 16:00 86 02/28/16 14:00 82 02/28/16 12:00 98.5 82 15 151/65 100 02/28/16 12:00 92 02/28/16 02/28/16 02/29/16 15:00 23:00 07:00 Intake Total 1077 ml 879 ml Output Total 350 ml 475 ml Balance 727 ml 404 ml Intake IV Total 682 ml 411 ml Tube Feeding 135 ml 268 ml Tube Irrigant 260 ml 200 ml Output Urine Total 350 ml 475 ml # Bowel Movements 1 0 Laboratory Tests Test 02/28/16 04:00 White Blood Count 10.3 TH/MM3 Red Blood Count 3.21 MIL/MM3 Hemoglobin 10.1 GM/DL Hematocrit 30.3 % Mean Corpuscular Volume 94.5 FL Mean Corpuscular Hemoglobin 31.7 PG Mean Corpuscular Hemoglobin 33.5 % Concent Red Cell Distribution Width 14.1 % Platelet Count 130 TH/MM3 Mean Platelet Volume 9.6 FL Neutrophils (%) (Auto) 64.9 % Lymphocytes (%) (Auto) 29.4 % Monocytes (%) (Auto) 5.0 % Eosinophils (%) (Auto) 0.5 % Basophils (%) (Auto) 0.2 % Neutrophils # (Auto) 6.7 TH/MM3 Lymphocytes # (Auto) 3.0 TH/MM3 Monocytes # (Auto) 0.5 TH/MM3 Eosinophils # (Auto) 0.0 TH/MM3 Basophils # (Auto) 0.0 TH/MM3 CBC Comment AUTO DIFF Differential Total Cells 100 Counted Neutrophils % (Manual) 58 % Band Neutrophils % 15 % Lymphocytes % 23 % Monocytes % 4 % Neutrophils # (Manual) 7.5 TH/MM3 Differential Comment FINAL DIFF MANUAL Platelet Estimate LOW Platelet Morphology Comment NORMAL Keratocytes OCC Laboratory Tests Test 02/27/16 02/28/16 02/29/16 20:00 04:00 03:30 Potassium Level 3.7 MEQ/L 3.7 MEQ/L Phosphorus Level 2.5 MG/DL Sodium Level 152 MEQ/L Chloride Level 120 MEQ/L Carbon Dioxide Level 20.0 MEQ/L Anion Gap 12 MEQ/L Blood Urea Nitrogen 41 MG/DL Creatinine 1.07 MG/DL 0.97 MG/DL Estimat Glomerular Filtration 49 ML/MIN 54 ML/MIN Rate Random Glucose 131 MG/DL Calcium Level 8.1 MG/DL Total Bilirubin 0.3 MG/DL Aspartate Amino Transf 28 U/L (AST/SGOT) Alanine Aminotransferase 8 U/L (ALT/SGPT) Alkaline Phosphatase 146 U/L Total Protein 5.3 GM/DL Albumin 1.8 GM/DL Microbiology Date/Time Procedure Status Source Growth 02/28/16 04:16 Aerobic Blood Culture - Preliminary Resulted Blood Peripheral NO GROWTH IN 1 DAY 02/28/16 04:16 Anaerobic Blood Culture - Preliminary Resulted Blood Peripheral NO GROWTH IN 1 DAY PHYSICAL EXAMINATION GENERAL: No acute distress. She is awake but not verbally responsive. HEENT: Head is atraumatic. Extraocular movements appear grossly intact. No icterus. Nose - Septum is midline. No drainage. Oropharynx - no visible lesions. Slightly dry mucosa. NECK: Supple without adenopathy. LUNGS: Clear breath sounds HEART: Regular S1-S2 without audible murmurs or rubs or gallops. ABDOMEN: Normoactive bowel sounds. Soft, nontender. No palpable masses. EXTREMITIES: No clubbing or cyanosis or edema. SKIN: No rash. NEUROLOGIC: Unable to fully assess. Not following commands. IMPRESSION 1. Gram-negative bacterial sepsis due to Proteus 2. UTI due to gram-negative chau which is likely Proteus and likely the cause of the bacteremia and sepsis 3. Altered mental status likely baseline and possibly infection making it worse. RECOMMENDATIONS 1. Continue aztreonam. 2. Follow WBC and temp. 3. Monitor clinical response. 4. If fever persist consider repeat CXR. Yifan Allen MD Feb 29, 2016 11:48
--- NOTE | 2016-02-29 16:22 | HHI.PR ---
Subjective Remarks awake, appears comfortable, reacted when I examined her with my cold hands tolerated tube feediings Objective Vitals Vital Signs Date Time Temp Pulse Resp B/P Pulse Ox O2 Delivery O2 Flow Rate FiO2 02/29/16 13:00 82 02/29/16 12:00 98.5 82 18 145/72 96 02/29/16 12:00 82 02/29/16 11:00 83 02/29/16 10:07 18 02/29/16 10:00 88 02/29/16 09:00 93 02/29/16 08:11 99 21 02/29/16 08:00 88 02/29/16 08:00 98.5 91 18 128/72 95 02/29/16 07:00 95 Room Air 02/29/16 07:00 97 02/29/16 05:00 88 02/29/16 04:00 99.0 87 17 140/67 98 02/29/16 04:00 87 02/29/16 03:00 90 02/29/16 02:00 87 02/29/16 01:00 90 02/29/16 00:00 100.6 91 15 141/56 99 02/29/16 00:00 91 02/28/16 22:00 89 02/28/16 20:01 100 21 02/28/16 20:00 98 02/28/16 20:00 101.0 98 25 140/65 100 02/28/16 19:00 100 Room Air 02/28/16 18:00 89 I/O 02/28/16 02/28/16 02/28/16 02/29/16 02/29/16 02/29/16 07:00 15:00 23:00 07:00 15:00 23:00 Intake Total 1456 ml 1077 ml 879 ml Output Total 800 ml 350 ml 475 ml Balance 656 ml 727 ml 404 ml Intake IV Total 809 ml 682 ml 411 ml Tube Feeding 247 ml 135 ml 268 ml Tube Irrigant 400 ml 260 ml 200 ml Output Urine Total 800 ml 350 ml 475 ml Gastric Drainage Total 0 ml # Bowel Movements 2 1 0 Result Diagram: 02/28/16 0400 02/29/16 0330 Imaging Last Impressions Brain MRI 02/28/16 0000 Signed Impressions: Service Date/Time: Sunday, February 28, 2016 17:49 - CONCLUSION: 1. Tiny acute lacunar infarct involving the left cerebellar hemisphere. 2. Old infarcts involving the left temporal and right occipital lobes. 3. Moderate to severe periventricular and subcortical white matter small-vessel ischemic changes bilaterally. 4. Diffuse cerebral atrophy. 5. No acute hemorrhage, midline shift or extra-axial fluid collections. 6. Scattered old lacunar infarcts within the bilateral basal ganglia. 7. Old tiny lacunar infarct within the left cerebellar hemisphere. Kayode Olivarez MD Chest X-Ray 02/26/16 0000 Signed Impressions: Service Date/Time: Friday, February 26, 2016 06:13 - CONCLUSION: Gastric tube tip and side-port within the stomach. Central line in good position. Tonny Gutierrez MD Head CT 02/25/16 2238 Signed Impressions: Service Date/Time: February 23:22 - CONCLUSION: Bilateral parietal transcortical infarcts appear subacute or chronic, but are new finding compared to December 2014. No evidence of blood products, mass effect, or cerebral edema. Tonny Gutierrez MD Objective Remarks more awake anicteric, NGT in place dry oral mucosa supple neck left chest wall- central line in place decreased breath sounds, no rales regular rhythm abdomen- soft, good bowel sounds zamarripa in place Upper extremities + edema- decrease Lower extremities no edema withdraws all extremities to tactile stimuli Urinary Catheter: Yes Assessment to: Continue Zamraripa insert reason: Prolonged Immobilization Date of Insertion: Feb 25, 2016 Date of Insertion: Feb 25, 2016 A/P Assessment and Plan This is a critically ill elderly female patient with suspected urosepsis, altered mental status currently maintaining airway. The patient is at risk for possible intubation. Extensive discussion with the son revealed that he would like intubation if required by patient. Discussed goals of care as the patient remains critically ill with urosepsis, severe Parkinson's, altered mental status , decubitus ulcer, as the prognosis is guarded. The son requests that all measures be taken to include intubation and the patient is a full code. Septic Shock secondary to Proteus UTI Toxic encephalopathy-secondary to urosepsis - ID ff. On Azacatam and Vancomycin History of Parkinsons disease MUltiple acute infarcts on MRI- 02/27- hisotry of CVA -Neurochecks -Resume anti-Parkinson's home medications levodopa-carbidopa -We'll hold home meds Lexapro, Remeron, Ativan -Hold Depakote, obtain Depakote levels - get swallowing evaluation -PT.OT eval Respiratory: -No acute issues, patient is at risk for possible intubation H/O cardiac stents Cardiovascular disease Hypertension -Maintain map greater than 65 mmHg, will place central line if needed for vasopressors -After bolus of IVF's patient normotensive SBP 115 -We'll resume home antihypertensive meds when clinically indicated -Patient on Plavix, and ASA 81 mg, held due to hematuria - consider restarting tomorrow Renal: DEEP- improved with IVF Hypernatremia Hematuria- resolved- zamarripa draining grossly clear yellow urine S/P renal surgery (past history) -0.9 NaCl @42cc/hr- change IVF to 02/21 NS -- continue free water /GT -- Strict I/Os - FF BMP FEN/GI: Diabetes mellitus -Insert Dobbhoff tube, aspiration precautions tolerating tube feedings -Hold metformin Endocrine: Hypothyroidism -Monitor blood glucose every 6 hours per ICU protocol -Obtain thyroid level follow-up results and then resume medication -- SSI MSK: Decubitus ulcer-sacrum -Wound care consult -PT evaluation and treat-functional maintenance daily Prophylaxis: GI Prophylaxis Protonix 40 mg IV/day DVT Prophylaxis -- SCDs Lines: Peripheral IVs 2. Central line if indicated Dispo: will need [facility] Blanca Norman MD Feb 29, 2016 16:22
[2016-02-29] MEDS: MIRTAZAPINE 15 MG TAB PO SCH (20:42)
[2016-03-01] VITALS (25 sets, daily range): BP systolic 133–153; BP diastolic 63–81; PULSE 83–91; RESP 17–18; TEMP 98.4–99.5; O2SAT 95–98
[2016-03-01] MEDS: AZTREONAM INJ 1,000 MG in SODIUM CHLORIDE 0.9% INJ 100 ML IV SCH ×2 (02:56→14:00)
[2016-03-01] MEDS: CHLORHEXIDINE GLUCONATE 2 % 1 PACK (2 CLOTHS) TOP SCH (02:57)
[2016-03-01 05:42] LABS: BICARBONATE 22.3 MEQ/L (21.0-32.0); POTASSIUM 3.9 MEQ/L (3.5-5.1)
[2016-03-01] MEDS: INSULIN ASPART SUPPLEMENTAL SCALE SQ SCH ×4 (05:56→21:00)
[2016-03-01] MEDS: FREE WATER G-TUBE SCH ×3 (05:56→18:00)
[2016-03-01] MEDS: LEVOTHYROXINE SODIUM 75 MCG TAB PO SCH (05:56)
[2016-03-01] MEDS: CARBIDOPA/LEVODOPA 25 MG/100 MG TAB PO SCH ×2 (05:56→14:00)
--- NOTE | 2016-03-01 08:06 | HHI.PR ---
Subjective Remarks lethargic moans and got upset and became tearful when being examined tolerating tube feeding zamarripa draining grossly clear urine Objective Vitals Vital Signs Date Time Temp Pulse Resp B/P Pulse Ox O2 Delivery O2 Flow Rate FiO2 03/01/16 06:00 85 03/01/16 05:00 85 03/01/16 04:00 98.9 84 17 143/77 95 03/01/16 04:00 84 03/01/16 03:00 83 03/01/16 02:00 85 03/01/16 01:00 87 03/01/16 00:00 88 03/01/16 00:00 99.4 88 18 153/81 96 02/29/16 23:00 86 02/29/16 22:00 84 02/29/16 21:17 96 21 02/29/16 21:00 83 02/29/16 20:00 86 02/29/16 20:00 99.7 86 20 167/83 97 02/29/16 19:00 96 Room Air 02/29/16 19:00 86 02/29/16 16:00 81 02/29/16 16:00 98.7 80 18 135/74 96 02/29/16 15:30 98.7 80 18 135/74 96 02/29/16 15:00 82 02/29/16 14:00 83 02/29/16 13:00 82 02/29/16 12:00 98.5 82 18 145/72 96 02/29/16 12:00 82 02/29/16 11:00 83 02/29/16 10:07 18 02/29/16 10:00 88 02/29/16 09:00 93 02/29/16 08:11 99 21 I/O 02/29/16 02/29/16 02/29/16 03/01/16 03/01/16 03/01/16 07:00 15:00 23:00 07:00 15:00 23:00 Intake Total 1000 ml 1534 ml Output Total 650 ml 800 ml Balance 350 ml 734 ml Intake IV Total 500 ml 642 ml Tube Feeding 500 ml 492 ml Tube Irrigant 400 ml Output Urine Total 650 ml 800 ml Gastric Drainage Total 0 ml # Bowel Movements 1 1 Result Diagram: 02/28/16 0400 03/01/16 0440 Imaging Last Impressions Brain MRI 02/28/16 0000 Signed Impressions: Service Date/Time: Sunday, February 28, 2016 17:49 - CONCLUSION: 1. Tiny acute lacunar infarct involving the left cerebellar hemisphere. 2. Old infarcts involving the left temporal and right occipital lobes. 3. Moderate to severe periventricular and subcortical white matter small-vessel ischemic changes bilaterally. 4. Diffuse cerebral atrophy. 5. No acute hemorrhage, midline shift or extra-axial fluid collections. 6. Scattered old lacunar infarcts within the bilateral basal ganglia. 7. Old tiny lacunar infarct within the left cerebellar hemisphere. Kayode Olivarez MD Chest X-Ray 02/26/16 0000 Signed Impressions: Service Date/Time: Friday, February 26, 2016 06:13 - CONCLUSION: Gastric tube tip and side-port within the stomach. Central line in good position. Tonny Gutierrez MD Head CT 02/25/16 2238 Signed Impressions: Service Date/Time: February 23:22 - CONCLUSION: Bilateral parietal transcortical infarcts appear subacute or chronic, but are new finding compared to December 2014. No evidence of blood products, mass effect, or cerebral edema. Tonny Gutierrez MD Objective Remarks anicteric, NGT in place dry oral mucosa, no thrush supple neck left chest wall- central line in place decreased breath sounds, no rales regular rhythm abdomen- soft, good bowel sounds zamarripa in place Upper extremities + edema- decreasing Lower extremities no edema withdraws all extremities to stimuli Zamarripa insert reason: Prolonged Immobilization Date of Insertion: Feb 25, 2016 Date of Insertion: Feb 25, 2016 A/P Assessment and Plan This is elderly female patient with suspected urosepsis, altered mental status currently maintaining airway. The patient is at risk for possible intubation. Extensive discussion with the son revealed that he would like intubation if required by patient. Discussed goals of care as the patient remains critically ill with urosepsis, severe Parkinson's, altered mental status, decubitus ulcer, as the prognosis is guarded. The son requests that all measures be taken to include intubation and the patient is a full code. Mental status- change multifactorial due ;- sepsis, electrollyte imbalance, CVA ? acute Septic Shock secondary to Proteus UTI Toxic encephalopathy-secondary to urosepsis - ID ff. On Azacatam and Vancomycin History of Parkinsons disease MUltiple acute infarcts on MRI- 02/27- history of CVA -Neurochecks- consult Neurology -On anti-Parkinson's home medications levodopa-carbidopa -We'll hold home meds Lexapro, Remeron, Ativan -Hold Depakote, - get swallowing evaluation - speech therapist consulted -PT.OT eval - consult neurology for recommendations Respiratory: -No acute issues, patient is at risk for possible intubation H/O cardiac stents Cardiovascular disease Hypertension -Maintain map greater than 65 mmHg, will place central line if needed for vasopressors -After bolus of IVF's patient normotensive SBP 115 -We'll resume home antihypertensive meds when clinically indicated -Patient on Plavix, and ASA 81 mg, held due to hematuria- now grossly clear- - we will defer starting Plavix in the event that patient may need PEG Renal: DEEP- creatinine trending down with IVF Hypernatremia- Na trending down gradually Hematuria- resolved- zamarripa draining grossly clear yellow urine S/P renal surgery (past history) -0.9 NaCl @42cc/hr- change IVF to 02/21 NS -- continue free water /GT -- Strict I/Os - FF BMP FEN/GI: Diabetes mellitus -NGT in place spiration precautions tolerating tube feedings- speech therapy ff- -Hold metformin tolerating tube feedings if no improvement in MS- may need PEG Endocrine: Hypothyroidism - continue synthroid -- SSI MSK: Decubitus ulcer-sacrum -Wound care ff -PT evaluation and treat-functional maintenance daily Prophylaxis: GI Prophylaxis Protonix 40 mg IV/day DVT Prophylaxis -- SCDs Lines: Peripheral IVs 2. Central line if indicated Dispo: will need [facility] Blanca Norman MD Mar 01, 2016 08:06
[2016-03-01] MEDS ORDERED: NEUPRO 4 MG/24 HR TOPICAL SCH (09:00)
[2016-03-01] MEDS ORDERED: PANTOPRAZOLE SOD 40 MG DELAYED RELEASE TAB PO SCH (09:00)
[2016-03-01] MEDS ORDERED: CLOPIDOGREL 75 MG TAB PO SCH (09:00)
[2016-03-01] MEDS: PANTOPRAZOLE SODIUM 40 MG VIAL IV SCH (09:30)
[2016-03-01] MEDS: ESCITALOPRAM OXALATE 10 MG TAB PO SCH (09:30)
[2016-03-01] MEDS: NYSTATIN SUSP 500,000 U/5 ML CUP SWAB SCH ×3 (09:30→18:19)
[2016-03-01] MEDS: DIVALPROEX SODIUM SPRINKLES 125 MG CAP PO SCH (09:30)
[2016-03-01] MEDS: SODIUM CHLORIDE 0.9% FLUSH 5 ML FLUSH IV FLUSH SCH ×2 (09:30→21:00)
[2016-03-01] MEDS: MUPIROCIN 2% OINT 1 APPLIC/GM SYR NASAL SCH (09:30)
[2016-03-01] MEDS: COLLAGENASE OINT 30 GM TUBE TOP SCH (09:31)
[2016-03-01] MEDS: SODIUM CHLOR 0.45% 1000 ML INJ 1,000 ML IV SCH (09:34)
[2016-03-01] MEDS: DOCUSATE SODIUM 100 MG/10 ML UDC G-TUBE SCH (12:45)
--- NOTE | 2016-03-01 12:59 | HHI.IDPN ---
Note Infectious Disease Note Patient appears lethargic. Awake, non verbal. Not following commands. Temp lower No meaningful interaction. On O2 via nasal canula. This is a 85-year-old white female who was brought to the emergency department from a senior care facility on 02/26/16 because of poor response. PAST MEDICAL HISTORY 1. Arthritis, 2. Anxiety, depression, 3. Hypercholesteremia, 4. Gastroesophageal reflux disease, 5. Hypertension, 6. Kidney stones 7. Parkinson's disease, 8. Thyroid disease, 9. History of coronary stent, 10. Stress urinary incontinence 11. Sjogren's syndrome ALLERGIES KEFLEX TETRACYCLINE IODINATED CONTRAST WALNUTS, EGGS AND COCONUT. LINES: Left subclavian. Current Medications Medications (Trade) Dose Ordered Sig/[place] Route PRN Reason Start Time Stop Time Status Last Admin Dose Admin IV Flush (NS Flush) 2 ml UNSCH PRN IV FLUSH FLUSH AFTER USING IV ACCESS 02/26/16 00:45 IV Flush (NS Flush) 2 ml BID IV FLUSH 02/26/16 09:00 03/01/16 09:30 Pantoprazole Sodium (Protonix Inj) 40 mg DAILY IV 02/26/16 09:00 03/01/16 09:30 Ondansetron HCl (Zofran Inj) 4 mg Q6H PRN IV NAUSEA OR VOMITING 02/26/16 00:45 Docusate Sodium (Colace Liq) 100 mg Q12H G-TUBE 02/26/16 00:45 02/29/16 12:45 Bisacodyl (Dulcolax Supp) 10 mg DAILY PRN RECTAL CONSTIPATION 02/26/16 00:45 Magnesium Hydroxide (Milk Of Magnesia Liq) 30 ml Q12H PRN PO CONSTIPATION 02/26/16 00:45 Miscellaneous Information 1 Q361D XX 02/26/16 00:45 Chlorhexidine Gluconate (Chlorhexidine 2% Cloth) 3 pack Taper DAILY@04 TOP 02/26/16 04:00 02/21/17 03:59 02/28/16 03:54 Chlorhexidine Gluconate (Chlorhexidine 2% Cloth) 3 pack UNSCH PRN TOP HYGIENIC CARE 02/26/16 00:45 Dextrose (D50w (Vial) Inj) 25 ml UNSCH PRN IV PUSH HYPOGLYCEMIA-SEE COMMENTS 02/26/16 01:00 Glucagon 1 mg 1 mg UNSCH PRN OTHER HYPOGLYCEMIA-SEE COMMENTS 02/26/16 01:00 Aztreonam/Sodium Chloride (Azactam Inj/NS Inj) 100 ml @ 200 mls/hr Q12H IV 02/26/16 02:00 03/01/16 02:56 Carbidopa/Levodopa (Sinemet 25-100 Mg) 1 tab Q8HR PO 02/26/16 06:00 03/01/16 05:56 Acetaminophen (Tylenol 650 Mg/ 20 ml Liq) 650 mg Q6H PRN PO temp greater than 101 02/26/16 11:15 02/29/16 08:56 Divalproex Sodium (Depakote Sprinkles) 125 mg BID PO 02/26/16 12:00 03/01/16 09:30 Levothyroxine Sodium (Synthroid) 37.5 mcg DAILY@0600 PO 02/26/16 12:00 03/01/16 05:56 Miscellaneous (Pill Splitter) 1 ea UNSCH PRN OTHER SEE LABEL COMMENTS 02/26/16 11:45 Collagenase (Santyl Oint) 1 applic DAILY TOP 02/27/16 09:00 03/01/16 09:31 Collagenase (Santyl Oint) 1 applic UNSCH PRN TOP SEE LABEL COMMENTS 02/26/16 16:45 Water (Free Water) VOLUME: 200 ML Q6HR G-TUBE 02/27/16 09:00 03/01/16 05:56 Miscellaneous Information Patient in critical care unit? Ass... Q361D XX 02/27/16 15:15 02/27/16 15:15 Mupirocin 1 applic 1 applic BID NASAL 02/27/16 21:00 03/01/16 09:30 Sodium Chloride (1/2 NS 1000 ml Inj) 1,000 ml @ 70 mls/hr [id number] IV 02/28/16 14:30 03/01/16 09:34 Nystatin (Mycostatin Liq) 5 ml QID SWAB 02/28/16 21:00 03/01/16 09:30 Escitalopram Oxalate (Lexapro) 10 mg DAILY PO 03/01/16 09:00 03/01/16 09:30 Mirtazapine (Remeron) 30 mg HS PO 02/29/16 21:00 02/29/16 20:42 Patient Own Medication PT OWN MED: NEUPRO (ROTIGOTI... DAILY TOPICAL 03/01/16 09:00 Hold SOCIAL HISTORY The patient is a resident of a senior care facility. No alcohol, tobacco or illicit drugs. FAMILY HISTORY Unable to obtain. REVIEW OF SYSTEMS Unable to obtain OBJECTIVE: Vital Signs Date Time Temp Pulse Resp B/P Pulse Ox O2 Delivery O2 Flow Rate FiO2 03/01/16 12:04 98.4 91 17 140/64 98 03/01/16 11:28 Room Air 2.00 21 03/01/16 10:00 91 03/01/16 09:39 98.9 88 17 133/71 97 03/01/16 09:00 86 03/01/16 08:11 95 21 03/01/16 08:00 87 03/01/16 07:00 87 03/01/16 06:00 85 03/01/16 05:00 85 03/01/16 04:00 98.9 84 17 143/77 95 03/01/16 04:00 84 03/01/16 03:00 83 03/01/16 02:00 85 03/01/16 01:00 87 03/01/16 00:00 88 03/01/16 00:00 99.4 88 18 153/81 96 02/29/16 23:00 86 02/29/16 22:00 84 02/29/16 21:17 96 21 02/29/16 21:00 83 02/29/16 20:00 86 02/29/16 20:00 99.7 86 20 167/83 97 02/29/16 19:00 96 Room Air 02/29/16 19:00 86 02/29/16 16:00 81 02/29/16 16:00 98.7 80 18 135/74 96 02/29/16 15:30 98.7 80 18 135/74 96 02/29/16 15:00 82 02/29/16 14:00 83 02/29/16 13:00 82 02/29/16 02/29/16 03/01/16 15:00 23:00 07:00 Intake Total 1000 ml 1534 ml Output Total 650 ml 800 ml Balance 350 ml 734 ml Intake IV Total 500 ml 642 ml Tube Feeding 500 ml 492 ml Tube Irrigant 400 ml Output Urine Total 650 ml 800 ml Gastric Drainage Total 0 ml # Bowel Movements 1 1 Laboratory Tests Test 02/29/16 03/01/16 03:30 04:40 Creatinine 0.97 MG/DL 0.97 MG/DL Estimat Glomerular Filtration 54 ML/MIN 54 ML/MIN Rate Sodium Level 148 MEQ/L Potassium Level 3.9 MEQ/L Chloride Level 118 MEQ/L Carbon Dioxide Level 22.3 MEQ/L Anion Gap 8 MEQ/L Blood Urea Nitrogen 36 MG/DL Random Glucose 146 MG/DL Calcium Level 8.0 MG/DL Microbiology Date/Time Procedure Status Source Growth 02/28/16 04:16 Aerobic Blood Culture - Preliminary Resulted Blood Peripheral NO GROWTH IN 2 DAYS 02/28/16 04:16 Anaerobic Blood Culture - Preliminary Resulted Blood Peripheral NO GROWTH IN 2 DAYS PHYSICAL EXAMINATION GENERAL: No acute distress. HEENT: Head is atraumatic. Extraocular movements appear grossly intact. No icterus. Nose - Septum is midline. No drainage. Oropharynx - no visible lesions. Slightly dry mucosa. NECK: Supple without adenopathy. LUNGS: Bilateral basilar crackles. HEART: Regular S1-S2 without audible murmurs or rubs or gallops. ABDOMEN: Normoactive bowel sounds. Soft, nontender. No palpable masses. EXTREMITIES: No clubbing or cyanosis or edema. SKIN: No rash. NEUROLOGIC: Unable to fully assess. Not following commands. Tabares has slight white sediment. IMPRESSION 1. Gram-negative bacterial sepsis due to Proteus 2. UTI due to Proteus and e. coli. Source of sepsis. 3. Altered mental status likely baseline and possibly infection making it worse. 4. Leukocytosis improved. RECOMMENDATIONS 1. Continue aztreonam. 2. Follow WBC and temp. 3. Repeat urine culture. 4. Monitor clinical response. 5. Given her mental status continue to treat with IV antibiotics. Yifan Allen MD Mar 01, 2016 12:59
--- NOTE | 2016-03-01 15:59 | MB ---
cc: OLGA SCHROEDER M.D. DATE OF CONSULTATION: 03/01/2016 REASON FOR CONSULTATION: Decreased responsiveness. HISTORY OF PRESENT ILLNESS: The patient is an 85-year-old seen in neurological consultation regards to decreased responsiveness. The patient is a assisted resident. She was brought in after she was found to be poorly responsive. She has been treated for septicemia. White count initially 25,000. Her history included Parkinson's disease, apparently poor mobility. The MRI of the brain showed tiny acute left cerebellar stroke, old left temporal and right occipital stroke, old lacunar bilaterally. She apparently takes Sinemet 25/100 three times a day. NEUROLOGICAL EXAMINATION: The neurological exam shows the patient to be sleep with stimulation and she awoke and with more stimulation. She yelled a few words but she would not follow any commands. Her tone is increased in all four extremities. I waived her arms and she would let them drop quickly when left alone. Her pupils were small and about the same size, probably reactive. There is questionable right facial weakness. She withdrew the legs mildly to plantar stimulation. The reflexes were difficult to be listed. LABORATORY DATA: WBC 10.3, hemoglobin 10.1, platelets 130 and this is from the 8th. Chemistry from today shows sodium 148, potassium 3.9, BUN 36, creatinine 0.97. Initial BUN was 64 and creatinine was 1.48. ASSESSMENT: 1. Urosepsis. 2. Parkinson's by history. 3. Multiple bilateral strokes, lacunar and larger size old strokes. Possible tiny left cerebellar acute infarct. PLAN: Continue supportive care. She has SCDs. She could be given baby aspirin unless there is medical reasons for these not to be used. Medical supportive care otherwise. At this point, I do not recommend anymore aggressive neurological management. Thank you for asking us to assist in her care. MD KATYA Espitia/DAFNE /1:37 PM /3:19 PM
[2016-03-01] MEDS ORDERED: PHARMACY ORDERED LAB XX ONE (17:45)
[2016-03-01] MEDS: MIRTAZAPINE 15 MG TAB PO SCH (21:00)
[2016-03-02] VITALS (31 sets, daily range): BP systolic 135–149; BP diastolic 75–78; PULSE 84–99; RESP 18–20; TEMP 97–99.1; O2SAT 94–98
[2016-03-02] MEDS: DIVALPROEX SODIUM SPRINKLES 125 MG CAP PO SCH ×3 (00:13→21:00)
[2016-03-02] MEDS: MUPIROCIN 2% OINT 1 APPLIC/GM SYR NASAL SCH ×3 (00:13→21:00)
[2016-03-02] MEDS: CARBIDOPA/LEVODOPA 25 MG/100 MG TAB PO SCH ×4 (00:14→21:00)
[2016-03-02] MEDS: NYSTATIN SUSP 500,000 U/5 ML CUP SWAB SCH ×5 (00:14→21:00)
[2016-03-02] MEDS: DOCUSATE SODIUM 100 MG/10 ML UDC G-TUBE SCH ×2 (00:45→14:51)
[2016-03-02] MEDS: SODIUM CHLOR 0.45% 1000 ML INJ 1,000 ML IV SCH ×2 (01:22→14:00)
[2016-03-02] MEDS: AZTREONAM INJ 1,000 MG in SODIUM CHLORIDE 0.9% INJ 100 ML IV SCH ×2 (02:00→14:00)
[2016-03-02] MEDS: CHLORHEXIDINE GLUCONATE 2 % 1 PACK (2 CLOTHS) TOP SCH (04:00)
[2016-03-02] MEDS: FREE WATER G-TUBE SCH ×4 (06:00→18:00)
[2016-03-02] MEDS: LEVOTHYROXINE SODIUM 75 MCG TAB PO SCH (06:44)
[2016-03-02] MEDS: INSULIN ASPART SUPPLEMENTAL SCALE SQ SCH ×4 (06:44→21:00)
[2016-03-02] MEDS: COLLAGENASE OINT 30 GM TUBE TOP SCH (09:00)
[2016-03-02] MEDS: PANTOPRAZOLE SODIUM 40 MG VIAL IV SCH (09:43)
[2016-03-02] MEDS: ESCITALOPRAM OXALATE 10 MG TAB PO SCH (09:44)
[2016-03-02] MEDS: SODIUM CHLORIDE 0.9% FLUSH 5 ML FLUSH IV FLUSH SCH ×2 (09:44→21:01)
[2016-03-02] MEDS ORDERED: ALTEPLASE RECOMBINANT 2 MG VIAL INTRACATH ONE (12:30)
--- NOTE | 2016-03-02 12:35 | HHI.PR ---
Subjective Remarks opened eyes and smiles, ff commands, weak Objective Vitals Vital Signs Date Time Temp Pulse Resp B/P Pulse Ox O2 Delivery O2 Flow Rate FiO2 03/02/16 11:50 95 21 03/02/16 11:00 97.0 86 20 149/77 97 03/02/16 11:00 90 03/02/16 10:00 87 03/02/16 09:09 95 21 03/02/16 09:00 86 03/02/16 08:00 88 03/02/16 07:00 98.5 91 20 146/75 94 03/02/16 07:00 94 Room Air 03/02/16 07:00 90 03/02/16 06:00 91 03/02/16 05:17 99.0 90 18 135/76 95 03/02/16 05:00 90 03/02/16 04:00 89 03/02/16 03:45 99.0 90 18 135/76 95 03/02/16 03:00 88 03/02/16 02:43 98 03/02/16 02:00 89 03/02/16 01:00 85 03/02/16 00:39 99.1 89 18 144/78 96 03/02/16 00:00 94 03/01/16 23:00 88 03/01/16 22:37 Room Air 2.00 21 03/01/16 21:00 86 03/01/16 20:00 99.5 90 18 151/77 96 03/01/16 20:00 85 03/01/16 19:00 88 03/01/16 17:00 87 03/01/16 16:00 87 03/01/16 16:00 99.0 88 18 135/63 98 03/01/16 15:00 88 03/01/16 14:00 89 03/01/16 13:00 91 I/O 03/01/16 03/01/16 03/01/16 03/02/16 03/02/16 03/02/16 07:00 15:00 23:00 07:00 15:00 23:00 Intake Total 1534 ml 1560 ml 1960 ml Output Total 800 ml 1550 ml Balance 734 ml 1560 ml 410 ml Intake IV Total 642 ml 840 ml 840 ml Tube Feeding 492 ml 720 ml 720 ml Tube Irrigant 400 ml 400 ml Output Urine Total 800 ml 1550 ml Gastric Drainage Total 0 ml # Bowel Movements 1 1 Result Diagram: 02/28/16 0400 03/01/16 0440 Imaging Last Impressions Brain MRI 02/28/16 0000 Signed Impressions: Service Date/Time: Sunday, February 28, 2016 17:49 - CONCLUSION: 1. Tiny acute lacunar infarct involving the left cerebellar hemisphere. 2. Old infarcts involving the left temporal and right occipital lobes. 3. Moderate to severe periventricular and subcortical white matter small-vessel ischemic changes bilaterally. 4. Diffuse cerebral atrophy. 5. No acute hemorrhage, midline shift or extra-axial fluid collections. 6. Scattered old lacunar infarcts within the bilateral basal ganglia. 7. Old tiny lacunar infarct within the left cerebellar hemisphere. Kayode Olivarez MD Chest X-Ray 02/26/16 0000 Signed Impressions: Service Date/Time: Friday, February 26, 2016 06:13 - CONCLUSION: Gastric tube tip and side-port within the stomach. Central line in good position. Tonny Gutierrez MD Head CT 02/25/16 2238 Signed Impressions: Service Date/Time: February 23:22 - CONCLUSION: Bilateral parietal transcortical infarcts appear subacute or chronic, but are new finding compared to December 2014. No evidence of blood products, mass effect, or cerebral edema. Tonny Gutierrez MD Objective Remarks anicteric, NGT in place dry oral mucosa, no thrush supple neck left chest wall- central line in place decreased breath sounds, no rales regular rhythm abdomen- soft, good bowel sounds zamarripa in place Upper extremities + edema- improving Lower extremities no edema withdraws all extremities to stimuli Urinary Catheter: Yes Zamarripa insert reason: Prolonged Immobilization Date of Insertion: Feb 25, 2016 Date of Insertion: Feb 25, 2016 A/P Assessment and Plan This is elderly female patient with suspected urosepsis, altered mental status currently maintaining airway. The patient is at risk for possible intubation. Extensive discussion with the son revealed that he would like intubation if required by patient. Discussed goals of care as the patient remains critically ill with urosepsis, severe Parkinson's, altered mental status, decubitus ulcer, as the prognosis is guarded. The son requests that all measures be taken to include intubation and the patient is a full code. Mental status- change multifactorial due ;- sepsis, electrolyte imbalance, CVA ? acute Septic Shock secondary to Proteus UTI Toxic encephalopathy-secondary to urosepsis - ID ff. On Azacatam and Vancomycin History of Parkinsons disease MUltiple acute infarcts on MRI- 02/27- history of CVA -Neurochecks- consult Neurology -On anti-Parkinson's home medications levodopa-carbidopa -We'll hold home meds Lexapro, Remeron, Ativan -Hold Depakote, - get swallowing evaluation - speech therapist consulted- if no improvement - will need PEG fo meet nutrtional requirement. will consult nutrtionist -PT.OT eval -ff by Neurology Respiratory: -No acute issues, patient is at risk for possible intubation H/O cardiac stents Cardiovascular disease Hypertension -Maintain map greater than 65 mmHg, will place central line if needed for vasopressors -After bolus of IVF's patient normotensive SBP 115 -We'll resume home antihypertensive meds when clinically indicated -Patient on Plavix, and ASA 81 mg, held due to hematuria- now grossly clear- - we will defer starting Plavix in the event that patient may need PEG Renal: DEEP- creatinine trending down with IVF Hypernatremia- Na trending down gradually Hematuria- resolved- zamarripa draining grossly clear yellow urine S/P renal surgery (past history) -0.9 NaCl @42cc/hr- change IVF to 02/21 NS -- continue free water /GT -- Strict I/Os - FF BMP FEN/GI: Diabetes mellitus -NGT in place spiration precautions tolerating tube feedings- speech therapy ff- -Hold metformin tolerating tube feedings if no improvement in MS- may need PEG Endocrine: Hypothyroidism - continue synthroid -- SSI MSK: Decubitus ulcer-sacrum -Wound care ff -PT evaluation and treat-functional maintenance daily Prophylaxis: GI Prophylaxis Protonix 40 mg IV/day DVT Prophylaxis -- SCDs Lines: Peripheral IVs 2. Central line if indicated Dispo: will need SNF Address nutrition- if no improvement- will need PEG Blanca Norman MD Mar 02, 2016 12:35
--- NOTE | 2016-03-02 13:43 | HHI.IDPN ---
Note Infectious Disease Note Patient appears lethargic. Awakened and attempted to answer question but quickly drifted back to sleep. Afebrile. No meaningful interaction. On O2 via nasal canula. This is a 85-year-old white female who was brought [facility] the emergency department [facility] on [facility]/16 because of poor response. PAST MEDICAL HISTORY 1. Arthritis, 2. Anxiety, depression, 3. Hypercholesteremia, 4. Gastroesophageal reflux disease, 5. Hypertension, 6. Kidney stones 7. Parkinson's disease, 8. Thyroid disease, 9. History of coronary stent, 10. Stress urinary incontinence 11. Sjogren's syndrome ALLERGIES KEFLEX TETRACYCLINE IODINATED CONTRAST [place]UTS, EGGS AND COCONUT. LINES: Left subclavian. Current Medications Medications (Trade) Dose Ordered Sig/[place] Route PRN Reason Start Time Stop Time Status Last Admin Dose Admin IV Flush (NS Flush) 2 ml UNSCH PRN IV FLUSH FLUSH AFTER USING IV ACCESS 02/26/16 00:45 IV Flush (NS Flush) 2 ml BID IV FLUSH 02/26/16 09:00 03/02/16 09:44 Pantoprazole Sodium (Protonix Inj) 40 mg DAILY IV 02/26/16 09:00 03/02/16 09:43 Ondansetron HCl (Zofran Inj) 4 mg Q6H PRN IV NAUSEA OR VOMITING 02/26/16 00:45 Docusate Sodium (Colace Liq) 100 mg Q12H G-TUBE 02/26/16 00:45 03/02/16 00:45 Bisacodyl (Dulcolax Supp) 10 mg DAILY PRN RECTAL CONSTIPATION 02/26/16 00:45 Magnesium Hydroxide (Milk Of Magnesia Liq) 30 ml Q12H PRN PO CONSTIPATION 02/26/16 00:45 Miscellaneous Information 1 Q361D XX 02/26/16 00:45 Chlorhexidine Gluconate (Chlorhexidine 2% Cloth) Taper DAILY@04 TOP 02/26/16 04:00 02/21/17 03:59 02/28/16 03:54 Chlorhexidine Gluconate (Chlorhexidine 2% Cloth) 3 pack UNSCH PRN TOP HYGIENIC CARE 02/26/16 00:45 Dextrose (D50w (Vial) Inj) 25 ml UNSCH PRN IV PUSH HYPOGLYCEMIA-SEE COMMENTS 02/26/16 01:00 Glucagon 1 mg 1 mg UNSCH PRN OTHER HYPOGLYCEMIA-SEE COMMENTS 02/26/16 01:00 Aztreonam/Sodium Chloride (Azactam Inj/NS Inj) 100 ml @ 200 mls/hr Q12H IV 02/26/16 02:00 03/02/16 02:00 Carbidopa/Levodopa (Sinemet 25-100 Mg) 1 tab Q8HR PO 02/26/16 06:00 03/02/16 06:44 Acetaminophen (Tylenol 650 Mg/ 20 ml Liq) 650 mg Q6H PRN PO temp greater than 101 02/26/16 11:15 02/29/16 08:56 Divalproex Sodium (Depakote Sprinkles) 125 mg BID PO 02/26/16 12:00 03/02/16 09:44 Levothyroxine Sodium (Synthroid) 37.5 mcg DAILY@0600 PO 02/26/16 12:00 03/02/16 06:44 Miscellaneous (Pill Splitter) 1 ea UNSCH PRN OTHER SEE LABEL COMMENTS 02/26/16 11:45 Collagenase (Santyl Oint) 1 applic DAILY TOP 02/27/16 09:00 03/02/16 09:00 Collagenase (Santyl Oint) 1 applic UNSCH PRN TOP SEE LABEL COMMENTS 02/26/16 16:45 Water (Free Water) VOLUME: 200 ML Q6HR G-TUBE 02/27/16 09:00 03/02/16 12:00 Miscellaneous Information Patient in critical care unit? Ass... Q361D XX 02/27/16 15:15 02/27/16 15:15 Mupirocin 1 applic 1 applic BID NASAL 02/27/16 21:00 03/02/16 09:44 Sodium Chloride (1/2 NS 1000 ml Inj) 1,000 ml @ 70 mls/hr [id number] IV 02/28/16 14:30 03/02/16 01:22 Nystatin (Mycostatin Liq) 5 ml QID SWAB 02/28/16 21:00 03/02/16 09:43 Escitalopram Oxalate (Lexapro) 10 mg DAILY PO 03/01/16 09:00 03/02/16 09:44 Mirtazapine (Remeron) 30 mg HS PO 02/29/16 21:00 03/01/16 21:00 Patient Own Medication PT OWN MED: NEUPRO (ROTIGOTI... DAILY TOPICAL 03/01/16 09:00 Hold SOCIAL HISTORY The patient is a resident of a penitentiary facility. No alcohol, tobacco or illicit drugs. FAMILY HISTORY Unable to obtain. REVIEW OF SYSTEMS Unable to obtain OBJECTIVE: Vital Signs Date Time Temp Pulse Resp B/P Pulse Ox O2 Delivery O2 Flow Rate FiO2 03/02/16 13:04 84 03/02/16 12:57 85 03/02/16 11:50 95 21 03/02/16 11:00 97.0 86 20 149/77 97 03/02/16 11:00 90 03/02/16 10:00 87 03/02/16 09:09 95 21 03/02/16 09:00 86 03/02/16 08:00 88 03/02/16 07:00 98.5 91 20 146/75 94 03/02/16 07:00 94 Room Air 03/02/16 07:00 90 03/02/16 06:00 91 03/02/16 05:17 99.0 90 18 135/76 95 03/02/16 05:00 90 03/02/16 04:00 89 03/02/16 03:45 99.0 90 18 135/76 95 03/02/16 03:00 88 03/02/16 02:43 98 03/02/16 02:00 89 03/02/16 01:00 85 03/02/16 00:39 99.1 89 18 144/78 96 03/02/16 00:00 94 03/01/16 23:00 88 03/01/16 22:37 Room Air 2.00 21 03/01/16 21:00 86 03/01/16 20:00 99.5 90 18 151/77 96 03/01/16 20:00 85 03/01/16 19:00 88 03/01/16 17:00 87 03/01/16 16:00 87 03/01/16 16:00 99.0 88 18 135/63 98 03/01/16 15:00 88 03/01/16 14:00 89 03/01/16 03/01/16 03/02/16 15:00 23:00 07:00 Intake Total 1560 ml Balance 1560 ml Intake IV Total 840 ml Tube Feeding 720 ml Laboratory Tests Test 03/01/16 04:40 Sodium Level 148 MEQ/L Potassium Level 3.9 MEQ/L Chloride Level 118 MEQ/L Carbon Dioxide Level 22.3 MEQ/L Anion Gap 8 MEQ/L Blood Urea Nitrogen 36 MG/DL Creatinine 0.97 MG/DL Estimat Glomerular Filtration 54 ML/MIN Rate Random Glucose 146 MG/DL Calcium Level 8.0 MG/DL Microbiology Date/Time Procedure Status Source Growth 03/01/16 14:59 Urine Culture - Preliminary Resulted Urine Catheterized Urine NO GROWTH IN 24 HOURS. PHYSICAL EXAMINATION GENERAL: No acute distress. HEENT: Head is atraumatic. Extraocular movements appear grossly intact. No icterus. Nose - Septum is midline. No drainage. Oropharynx - no visible lesions. Slightly dry mucosa. NECK: Supple without adenopathy. LUNGS: Bilateral basilar crackles. HEART: Regular S1-S2 without audible murmurs or rubs or gallops. ABDOMEN: Normoactive bowel sounds. Soft, nontender. No palpable masses. EXTREMITIES: No clubbing or cyanosis or edema. SKIN: No rash. NEUROLOGIC: Unable to fully assess. Not following commands. Tabares has slight white sediment. IMPRESSION 1. Gram-negative bacterial sepsis due to Proteus 2. UTI due to Proteus and e. coli. Source of sepsis. 3. Altered mental status likely baseline and possibly infection making it worse. 4. Leukocytosis improved. RECOMMENDATIONS 1. Continue aztreonam. 2. Follow WBC and temp. 3. Monitor clinical response. 4. Given her mental status continue to treat with IV antibiotics. Would continue the Azactam until 03/06/16. Yifan Allen MD Mar 02, 2016 13:43
--- NOTE | 2016-03-02 19:14 | HHI.PR ---
Review/Management Daily Summary she is basically unchanged on the neuro exam met encep parkinson's multiple bilat old lacunar ??new lacunar dementia will follow prn Subjective Subjective Comments No acute events reported Active Medications Current Medications Medications (Trade) Dose Ordered Sig/[place] Route Start Time Stop Time Status Last Admin (NS Flush) 2 ml UNSCH PRN IV FLUSH 02/26/16 00:45 (NS Flush) 2 ml BID IV FLUSH 02/26/16 09:00 03/02/16 09:44 (Protonix Inj) 40 mg DAILY IV 02/26/16 09:00 03/02/16 09:43 (Zofran Inj) 4 mg Q6H PRN IV 02/26/16 00:45 (Colace Liq) 100 mg Q12H G-TUBE 02/26/16 00:45 03/02/16 14:51 (Dulcolax Supp) 10 mg DAILY PRN RECTAL 02/26/16 00:45 (Milk Of Magnesia Liq) 30 ml Q12H PRN PO 02/26/16 00:45 Miscellaneous Information 1 Q361D XX 02/26/16 00:45 (Chlorhexidine 2% Cloth) Taper DAILY@04 TOP 02/26/16 04:00 02/21/17 03:59 02/28/16 03:54 (Chlorhexidine 2% Cloth) 3 pack UNSCH PRN TOP 02/26/16 00:45 (D50w (Vial) Inj) 25 ml UNSCH PRN IV PUSH 02/26/16 01:00 Glucagon 1 mg 1 mg UNSCH PRN OTHER 02/26/16 01:00 (Azactam Inj/NS Inj) 100 ml @ 200 mls/hr Q12H IV 02/26/16 02:00 03/02/16 14:00 (Sinemet 25-100 Mg) 1 tab Q8HR PO 02/26/16 06:00 03/02/16 14:51 (Tylenol 650 Mg/ 20 ml Liq) 650 mg Q6H PRN PO 02/26/16 11:15 02/29/16 08:56 (Depakote Sprinkles) 125 mg BID PO 02/26/16 12:00 03/02/16 09:44 (Synthroid) 37.5 mcg DAILY@0600 PO 02/26/16 12:00 03/02/16 06:44 (Pill Splitter) 1 ea UNSCH PRN OTHER 02/26/16 11:45 (Santyl Oint) 1 applic DAILY TOP 02/27/16 09:00 03/02/16 09:00 (Santyl Oint) 1 applic UNSCH PRN TOP 02/26/16 16:45 (Free Water) VOLUME: 200 ML Q6HR G-TUBE 02/27/16 09:00 03/02/16 18:00 Miscellaneous Information Patient in critical care unit? Ass... Q361D XX 02/27/16 15:15 02/27/16 15:15 Mupirocin 1 applic 1 applic BID NASAL 02/27/16 21:00 03/02/16 09:44 (1/2 NS 1000 ml Inj) 1,000 ml @ 70 mls/hr [id number] IV 02/28/16 14:30 03/02/16 14:00 (Mycostatin Liq) 5 ml QID SWAB 02/28/16 21:00 03/02/16 18:00 (Lexapro) 10 mg DAILY PO 03/01/16 09:00 03/02/16 09:44 (Remeron) 30 mg HS PO 02/29/16 21:00 03/01/16 21:00 Patient Own Medication PT OWN MED: NEUPRO (ROTIGOTI... 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) Uncoded Allergies COCONUT ( Adverse Reaction, Severe, 03/10/14) EGGS ( Adverse Reaction, Severe, 03/10/14) Exam I&O / VS 03/01/16 03/01/16 03/02/16 15:00 23:00 07:00 Intake Total 1560 ml Balance 1560 ml Intake IV Total 840 ml Tube Feeding 720 ml Vital Signs Date Time Temp Pulse Resp B/P Pulse Ox O2 Delivery O2 Flow Rate FiO2 03/02/16 17:58 95 21 03/02/16 14:00 89 03/02/16 13:04 84 03/02/16 12:57 85 03/02/16 11:50 95 21 03/02/16 11:00 97.0 86 20 149/77 97 03/02/16 11:00 90 03/02/16 10:00 87 03/02/16 09:09 95 21 03/02/16 09:00 86 03/02/16 08:00 88 03/02/16 07:00 98.5 91 20 146/75 94 03/02/16 07:00 94 Room Air 03/02/16 07:00 90 03/02/16 06:00 91 03/02/16 05:17 99.0 90 18 135/76 95 03/02/16 05:00 90 03/02/16 04:00 89 03/02/16 03:45 99.0 90 18 135/76 95 03/02/16 03:00 88 03/02/16 02:43 98 03/02/16 02:00 89 03/02/16 01:00 85 03/02/16 00:39 99.1 89 18 144/78 96 03/02/16 00:00 94 03/01/16 23:00 88 03/01/16 22:37 Room Air 2.00 21 03/01/16 21:00 86 03/01/16 20:00 99.5 90 18 151/77 96 03/01/16 20:00 85 Objective Micro and Labs Date/Time Procedure Status Source Growth 03/01/16 14:59 Urine Culture - Preliminary Resulted Urine Catheterized Urine NO GROWTH IN 24 HOURS. 02/28/16 04:16 Aerobic Blood Culture - Preliminary Resulted Blood Peripheral NO GROWTH IN 3 DAYS 02/28/16 04:16 Anaerobic Blood Culture - Preliminary Resulted Blood Peripheral NO GROWTH IN 3 DAYS Keo Sharma MD Mar 02, 2016 19:14
[2016-03-02] MEDS: MIRTAZAPINE 15 MG TAB PO SCH (21:01)
[2016-03-03] VITALS (15 sets, daily range): BP systolic 117–143; BP diastolic 57–72; PULSE 82–93; RESP 18–20; TEMP 97.5–98.4; O2SAT 96–98
[2016-03-03] MEDS: AZTREONAM INJ 1,000 MG in SODIUM CHLORIDE 0.9% INJ 100 ML IV SCH ×2 (01:37→15:37)
[2016-03-03] MEDS: DOCUSATE SODIUM 100 MG/10 ML UDC G-TUBE SCH ×2 (01:37→12:45)
[2016-03-03] MEDS: CHLORHEXIDINE GLUCONATE 2 % 1 PACK (2 CLOTHS) TOP SCH (04:00)
[2016-03-03] MEDS: SODIUM CHLOR 0.45% 1000 ML INJ 1,000 ML IV SCH ×2 (04:18→18:36)
[2016-03-03] MEDS: LEVOTHYROXINE SODIUM 75 MCG TAB PO SCH (05:13)
[2016-03-03] MEDS: CARBIDOPA/LEVODOPA 25 MG/100 MG TAB PO SCH ×3 (05:13→20:59)
[2016-03-03] MEDS: FREE WATER G-TUBE SCH ×5 (05:13→20:00)
[2016-03-03] MEDS: INSULIN ASPART SUPPLEMENTAL SCALE SQ SCH ×4 (07:00→21:00)
[2016-03-03] MEDS: COLLAGENASE OINT 30 GM TUBE TOP SCH (09:00)
[2016-03-03] MEDS: MUPIROCIN 2% OINT 1 APPLIC/GM SYR NASAL SCH ×2 (09:47→20:58)
[2016-03-03] MEDS: ESCITALOPRAM OXALATE 10 MG TAB PO SCH (09:47)
[2016-03-03] MEDS: NYSTATIN SUSP 500,000 U/5 ML CUP SWAB SCH ×4 (09:47→21:00)
[2016-03-03] MEDS: PANTOPRAZOLE SODIUM 40 MG VIAL IV SCH (09:47)
[2016-03-03] MEDS: DIVALPROEX SODIUM SPRINKLES 125 MG CAP PO SCH ×2 (09:50→21:00)
--- NOTE | 2016-03-03 11:31 | HHI.PR ---
Subjective Remarks Follow for UTI, encephalopathy, stroke Patient sleepy but easily arousable. Nose her name, cannot get any meaningful information. Afebrile. Discussed with RN, no overnight events. Objective Vitals Vital Signs Date Time Temp Pulse Resp B/P Pulse Ox O2 Delivery O2 Flow Rate FiO2 03/03/16 08:08 98.0 83 20 138/72 97 03/03/16 06:00 83 03/03/16 05:00 83 03/03/16 04:00 82 03/03/16 03:00 84 03/03/16 03:00 97.5 84 18 130/66 96 03/03/16 02:00 86 03/03/16 01:00 85 03/03/16 00:00 83 03/02/16 23:00 88 03/02/16 23:00 98.0 99 18 144/78 95 03/02/16 22:00 86 03/02/16 21:00 86 03/02/16 20:00 85 03/02/16 19:00 97.8 88 20 148/75 98 03/02/16 19:00 98 Room Air 03/02/16 19:00 88 03/02/16 18:00 87 03/02/16 17:58 95 21 03/02/16 17:00 91 03/02/16 16:00 84 03/02/16 15:00 86 03/02/16 14:00 89 03/02/16 13:04 84 03/02/16 12:57 85 03/02/16 11:50 95 21 I/O 03/02/16 03/02/16 03/02/16 03/03/16 03/03/16 03/03/16 07:00 15:00 23:00 07:00 15:00 23:00 Intake Total 1960 ml 1100 ml 1802 ml Output Total 1550 ml 1050 ml 1825 ml Balance 410 ml 50 ml -23 ml Intake IV Total 840 ml 900 ml 673 ml Tube Feeding 720 ml 200 ml 729 ml Tube Irrigant 400 ml 400 ml Output Urine Total 1550 ml 1050 ml 1825 ml Gastric Drainage Total 0 ml # Bowel Movements 1 1 1 Result Diagram: 02/28/16 0400 03/01/16 0440 Objective Remarks Not in distress PERRL, pink conjunctiva without injection, anicteric NG tube in place, 2 feedings running. Supple neck, no masses Normal rate and regular rhythm, no murmurs gallops or rubs appreciated. Clear to auscultation and symmetric bilaterally, poor effort. Normal bowel sounds, soft, non-tender, nondistended, no guarding. Extremities without clubbing, cyanosis, 2-3 + edema legs and upper extremities. No rash of generalized distribution. Sleeping, easily arousable, neuro exam limited, moves extremities, muscle strength testing upper extremities 4 over 5, symmetric. Speech is difficult to understand. Date of Insertion: Feb 25, 2016 Date of Insertion: Feb 25, 2016 A/P Assessment and Plan This is an 85-year-old female who was admitted for septic shock secondary to Proteus UTI and also sustained a left cerebellar lacunar infarct Septic shock secondary to Proteus UTI and bacteremia-infectious disease following, continue Azactam until 03/06/16. Urine culture eventually grew Escherichia coli and Proteus, blood culture grew Proteus. 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 Start aspirin, check lipid profile, would likely need statin. History of Parkinsons disease- continue Lexapro, Sinemet and Depakote, Remeron. Ativan on hold. Nutrition-speech therapy following, has NG tube, follow-up watch crystal cutter recommendations, will eventually need a PEG tube. Coronary artery disease, hypertension-history of cardiac stents in the past, blood pressure stable. Restart aspirin, will also restart Plavix unless with any contraindication per neurology. Acute renal failure-resolved Hyponatremia-improving, increase water flushes every 4 hours. Hematuria- resolved- zamarripa draining grossly clear yellow urine Diabetes mellitus-hold metformin, insulin sliding scale for now Decubitus ulcer-sacrum -Wound care ff Prophylaxis: GI Prophylaxis: Lansoprazole DVT prophylaxis: SCDs Palliative care consulted yesterday but patient's son refused. Mariposa Conte MD Mar 03, 2016 11:31 Mariposa Cotne MD Mar 03, 2016 11:31
[2016-03-03] MEDS ORDERED: FUROSEMIDE 20 MG/2 ML VIAL IV PUSH ONE (12:00)
[2016-03-03] MEDS: ASPIRIN EC 81 MG TABEC PO SCH (12:23)
[2016-03-03] MEDS: SODIUM CHLORIDE 0.9% FLUSH 5 ML FLUSH IV FLUSH SCH ×2 (15:38→20:58)
[2016-03-03] MEDS: COLLAGENASE OINT 30 GM TUBE TOP PRN ×2 (15:40→17:07)
[2016-03-03] MEDS: MIRTAZAPINE 15 MG TAB PO SCH (20:59)
[2016-03-04] VITALS (24 sets, daily range): BP systolic 100–125; BP diastolic 46–68; PULSE 80–97; RESP 18–20; TEMP 98–99; O2SAT 95–98
[2016-03-04] MEDS: DOCUSATE SODIUM 100 MG/10 ML UDC G-TUBE SCH ×2 (00:16→11:38)
[2016-03-04] MEDS: AZTREONAM INJ 1,000 MG in SODIUM CHLORIDE 0.9% INJ 100 ML IV SCH ×2 (02:00→14:37)
[2016-03-04] MEDS: FREE WATER G-TUBE SCH ×6 (04:00→20:00)
[2016-03-04] MEDS: CHLORHEXIDINE GLUCONATE 2 % 1 PACK (2 CLOTHS) TOP SCH (04:00)
[2016-03-04] MEDS: LEVOTHYROXINE SODIUM 75 MCG TAB PO SCH (06:10)
[2016-03-04] MEDS: CARBIDOPA/LEVODOPA 25 MG/100 MG TAB PO SCH (06:10)
[2016-03-04 06:11] LABS: BICARBONATE 25.6 MEQ/L (21.0-32.0); HDL CHOLESTEROL 16.2 MG/DL (40.0-60.0); POTASSIUM 4.8 MEQ/L (3.5-5.1)
[2016-03-04] MEDS: INSULIN ASPART SUPPLEMENTAL SCALE SQ SCH ×4 (06:14→21:00)
[2016-03-04] MEDS: COLLAGENASE OINT 30 GM TUBE TOP SCH (09:00)
[2016-03-04] MEDS: NYSTATIN SUSP 500,000 U/5 ML CUP SWAB SCH ×4 (09:05→22:02)
[2016-03-04] MEDS: CLOPIDOGREL 75 MG TAB PO SCH (09:05)
[2016-03-04] MEDS: DIVALPROEX SODIUM SPRINKLES 125 MG CAP PO SCH ×2 (09:05→22:03)
[2016-03-04] MEDS: ESCITALOPRAM OXALATE 10 MG TAB PO SCH (09:05)
[2016-03-04] MEDS: LANSOPRAZOLE SOLUTAB 30 MG TAB NG SCH (09:05)
[2016-03-04] MEDS: ASPIRIN EC 81 MG TABEC PO SCH (09:05)
[2016-03-04] MEDS: SODIUM CHLOR 0.45% 1000 ML INJ 1,000 ML IV SCH (09:06)
[2016-03-04] MEDS: MUPIROCIN 2% OINT 1 APPLIC/GM SYR NASAL SCH ×2 (09:06→22:02)
[2016-03-04] MEDS: SODIUM CHLORIDE 0.9% FLUSH 5 ML FLUSH IV FLUSH SCH ×2 (09:06→22:02)
[2016-03-04] MEDS ORDERED: FUROSEMIDE 40 MG/4 ML VIAL IV PUSH ONE (11:15)
--- NOTE | 2016-03-04 11:19 | HHI.PR ---
Subjective Remarks Follow-up for infection Afebrile, no complaints. Mental status about the same, sleeping, arousable. Poor historian. Objective Vitals Vital Signs Date Time Temp Pulse Resp B/P Pulse Ox O2 Delivery O2 Flow Rate FiO2 03/04/16 10:15 97 21 03/04/16 08:00 98.7 86 18 114/64 97 03/04/16 06:00 85 03/04/16 05:00 84 03/04/16 04:00 82 03/04/16 04:00 98.2 82 18 116/58 95 03/04/16 03:00 83 03/04/16 02:00 84 03/04/16 01:00 87 03/04/16 00:00 92 03/04/16 00:00 97 Room Air 03/04/16 00:00 98.2 92 18 125/46 97 03/03/16 23:00 86 03/03/16 22:00 86 03/03/16 21:00 84 03/03/16 20:00 83 03/03/16 20:00 98.2 85 18 117/57 97 03/03/16 20:00 97 Room Air 03/03/16 19:00 83 03/03/16 17:01 98.4 85 18 120/59 97 03/03/16 12:35 97.8 93 20 143/71 98 I/O 03/03/16 03/03/16 03/03/16 03/04/16 03/04/16 03/04/16 07:00 15:00 23:00 07:00 15:00 23:00 Intake Total 1802 ml 1826 ml 2154 ml Output Total 1825 ml 3550 ml Balance -23 ml 1826 ml -1396 ml Intake IV Total 673 ml 786 ml 922 ml Tube Feeding 729 ml 590 ml 632 ml Tube Irrigant 400 ml Other 450 ml 600 ml Output Urine Total 1825 ml 3550 ml # Bowel Movements 1 1 Result Diagram: 03/04/16 0440 Objective Remarks Not in distress PERRL, pink conjunctiva without injection, anicteric NG tube in place, tube feedings running. Supple neck, no masses Normal rate and regular rhythm, no murmurs gallops or rubs appreciated. Clear to auscultation and symmetric bilaterally, poor effort. Normal bowel sounds, soft, non-tender, nondistended, no guarding. Extremities without clubbing, cyanosis, 2-3 + edema legs and upper extremities. No rash of generalized distribution. Sleeping, easily arousable, neuro exam limited, moves extremities, muscle strength testing upper extremities 4 over 5, symmetric. Speech is difficult to understand. Date of Insertion: Feb 25, 2016 Date of Insertion: Feb 25, 2016 A/P Assessment and Plan This is an 85-year-old female who was admitted for septic shock secondary to Proteus UTI and also sustained a left cerebellar lacunar infarct Septic shock secondary to Proteus UTI and bacteremia-infectious disease following, continue Azactam until 03/06/16. Urine culture eventually grew Escherichia coli and Proteus, blood culture grew Proteus. Toxic encephalopathy with delirium-secondary to urosepsis, monitor, may also be secondary to CVA, still sleepy but arousable. 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 Continue aspirin, LDL is fine. History of Parkinsons disease- continue Lexapro, Sinemet and Depakote, Remeron. Ativan on hold. Nutrition-speech therapy following, has NG tube, follow-up strategy consultant recommendations, might need a PEG tube. Start pure and nectar thick today. Coronary artery disease, hypertension-history of cardiac stents in the past, blood pressure stable. Restart aspirin, will also restart Plavix unless with any contraindication per neurology. Acute renal failure-resolved Edema-rule out pulmonary edema as well, check chest x-ray and BNP, will give another dose of Lasix, check urine output, monitor BMP. Hyponatremia-improving, continue water flushes every 4 hours. Hematuria- resolved- zamarripa draining grossly clear yellow urine Diabetes mellitus-hold metformin, insulin sliding scale for now Decubitus ulcer-sacrum -Wound care ff Prophylaxis: GI Prophylaxis: Lansoprazole DVT prophylaxis: SCDs Palliative care consulted but patient's son refused Transferred to regular floor. Will eventually need rehabilitation. Mariposa Conte MD Mar 04, 2016 11:19
--- NOTE | 2016-03-04 12:21 | RADRPT ---
EXAM DATE/TIME: 03/04/2016 11:38 [facility] COMPARISON: CHEST SINGLE AP, February 26, 2016, 6:13. INDICATIONS: Edema MEDICAL HISTORY: None. SURGICAL HISTORY: None. ENCOUNTER: Subsequent ACUITY: 4 - 6 days PAIN SCORE: Non-responsive. LOCATION: Bilateral chest FINDINGS: Nasogastric tube and central venous catheter are in good position. There is increasing interstitial edema. There is developing small pleural effusion on the right. CONCLUSION: Increasing interstitial edema. Developing small pleural effusion on the right. Edgar Moore MD FACR on March 04, 2016 at 12:13 Board Certified Radiologist. This report was verified electronically.
--- NOTE | 2016-03-04 18:46 | HHI.IDPN ---
Note Infectious Disease Note Patient awakens easily and attempts to answer question. Afebrile. No meaningful interaction. On O2 via nasal canula. This is a 85-year-old white female who was brought to the emergency department from a [place] [facility] facility on 02/26/16 because of poor response. PAST MEDICAL HISTORY 1. Arthritis, 2. Anxiety, depression, 3. Hypercholesteremia, 4. Gastroesophageal reflux disease, 5. Hypertension, 6. Kidney stones 7. Parkinson's disease, 8. Thyroid disease, 9. History of coronary stent, 10. Stress urinary incontinence 11. Sjogren's syndrome ALLERGIES KEFLEX TETRACYCLINE IODINATED CONTRAST WALNUTS, EGGS AND COCONUT. LINES: Left subclavian. Current Medications Medications (Trade) Dose Ordered Sig/[place] Route PRN Reason Start Time Stop Time Status Last Admin Dose Admin IV Flush (NS Flush) 2 ml UNSCH PRN IV FLUSH FLUSH AFTER USING IV ACCESS 02/26/16 00:45 IV Flush (NS Flush) 2 ml BID IV FLUSH 02/26/16 09:00 03/04/16 09:06 Ondansetron HCl (Zofran Inj) 4 mg Q6H PRN IV NAUSEA OR VOMITING 02/26/16 00:45 Docusate Sodium (Colace Liq) 100 mg Q12H G-TUBE 02/26/16 00:45 03/04/16 11:38 Bisacodyl (Dulcolax Supp) 10 mg DAILY PRN RECTAL CONSTIPATION 02/26/16 00:45 Magnesium Hydroxide (Milk Of Magnesia Liq) 30 ml Q12H PRN PO CONSTIPATION 02/26/16 00:45 Miscellaneous Information 1 Q361D XX 02/26/16 00:45 Chlorhexidine Gluconate (Chlorhexidine 2% Cloth) Taper DAILY@04 TOP 02/26/16 04:00 02/21/17 03:59 03/03/16 04:00 Chlorhexidine Gluconate (Chlorhexidine 2% Cloth) 3 pack UNSCH PRN TOP HYGIENIC CARE 02/26/16 00:45 Dextrose (D50w (Vial) Inj) 25 ml UNSCH PRN IV PUSH HYPOGLYCEMIA-SEE COMMENTS 02/26/16 01:00 Glucagon 1 mg 1 mg UNSCH PRN OTHER HYPOGLYCEMIA-SEE COMMENTS 02/26/16 01:00 Aztreonam/Sodium Chloride (Azactam Inj/NS Inj) 100 ml @ 200 mls/hr Q12H IV 02/26/16 02:00 03/04/16 14:37 Carbidopa/Levodopa (Sinemet 25-100 Mg) 1 tab Q8HR PO 02/26/16 06:00 Hold 03/04/16 06:10 Acetaminophen (Tylenol 650 Mg/ 20 ml Liq) 650 mg Q6H PRN PO temp greater than 101 02/26/16 11:15 02/29/16 08:56 Divalproex Sodium (Depakote Sprinkles) 125 mg BID PO 02/26/16 12:00 03/04/16 09:05 Levothyroxine Sodium (Synthroid) 37.5 mcg DAILY@0600 PO 02/26/16 12:00 03/04/16 06:10 Miscellaneous (Pill Splitter) 1 ea UNSCH PRN OTHER SEE LABEL COMMENTS 02/26/16 11:45 Collagenase (Santyl Oint) 1 applic DAILY TOP 02/27/16 09:00 03/04/16 09:00 Collagenase (Santyl Oint) 1 applic UNSCH PRN TOP SEE LABEL COMMENTS 02/26/16 16:45 03/03/16 17:07 Miscellaneous Information Patient in critical care unit? Ass... Q361D XX 02/27/16 15:15 02/27/16 15:15 Mupirocin (Bactroban Nasal 2% Oint) 1 applic BID NASAL 02/27/16 21:00 03/04/16 09:06 Nystatin (Mycostatin Liq) 5 ml QID SWAB 02/28/16 21:00 03/04/16 14:37 Escitalopram Oxalate (Lexapro) 10 mg DAILY PO 03/01/16 09:00 03/04/16 09:05 Mirtazapine (Remeron) 30 mg HS PO 02/29/16 21:00 03/03/16 20:59 Patient Own Medication PT OWN MED: NEUPRO (ROTIGOTI... DAILY TOPICAL 03/01/16 09:00 Hold Water (Free Water) VOLUME: 200 ML Q4HR G-TUBE 03/03/16 12:00 03/04/16 15:36 Lansoprazole (Prevacid Odt) 30 mg DAILY NG 03/04/16 09:00 03/04/16 09:05 Aspirin (Ecotrin Ec) 81 mg DAILY PO 03/03/16 12:00 03/04/16 09:05 Clopidogrel Bisulfate (Plavix) 75 mg DAILY PO 03/04/16 09:00 03/04/16 09:05 SOCIAL HISTORY The patient is a resident of a [place] [facility] facility. No alcohol, tobacco or illicit drugs. FAMILY HISTORY Unable to obtain. REVIEW OF SYSTEMS Unable to obtain OBJECTIVE: Vital Signs Date Time Temp Pulse Resp B/P Pulse Ox O2 Delivery O2 Flow Rate FiO2 03/04/16 17:49 98 21 03/04/16 16:00 92 03/04/16 15:55 98.0 89 20 100/68 98 03/04/16 14:00 85 03/04/16 13:00 97 03/04/16 12:05 99.0 82 18 118/58 96 03/04/16 12:00 84 03/04/16 11:00 80 03/04/16 10:15 97 21 03/04/16 10:00 86 03/04/16 09:00 81 03/04/16 08:00 98.7 86 18 114/64 97 03/04/16 08:00 85 03/04/16 07:00 85 03/04/16 06:00 85 03/04/16 05:00 84 03/04/16 04:00 82 03/04/16 04:00 98.2 82 18 116/58 95 03/04/16 03:00 83 03/04/16 02:00 84 03/04/16 01:00 87 03/04/16 00:00 92 03/04/16 00:00 97 Room Air 03/04/16 00:00 98.2 92 18 125/46 97 03/03/16 23:00 86 03/03/16 22:00 86 03/03/16 21:00 84 03/03/16 20:00 83 03/03/16 20:00 98.2 85 18 117/57 97 03/03/16 20:00 97 Room Air 03/03/16 19:00 83 03/03/16 03/03/16 03/04/16 15:00 23:00 07:00 Intake Total 1826 ml 2154 ml Output Total 3550 ml Balance 1826 ml -1396 ml Intake IV Total 786 ml 922 ml Tube Feeding 590 ml 632 ml Other 450 ml 600 ml Output Urine Total 3550 ml # Bowel Movements 1 Laboratory Tests Test 03/04/16 04:40 Sodium Level 140 MEQ/L Potassium Level 4.8 MEQ/L Chloride Level 108 MEQ/L Carbon Dioxide Level 25.6 MEQ/L Anion Gap 6 MEQ/L Blood Urea Nitrogen 36 MG/DL Creatinine 0.90 MG/DL Estimat Glomerular Filtration 59 ML/MIN Rate Random Glucose 124 MG/DL Calcium Level 7.9 MG/DL Triglycerides Level 142 MG/DL Cholesterol Level 101 MG/DL LDL Cholesterol 56 MG/DL HDL Cholesterol 16.2 MG/DL Cholesterol/HDL Ratio 6.23 RATIO PHYSICAL EXAMINATION GENERAL: No acute distress. HEENT: Head is atraumatic. Extraocular movements appear grossly intact. No icterus. Nose - Septum is midline. No drainage. Oropharynx - no visible lesions. Slightly dry mucosa. NECK: Supple without adenopathy. LUNGS: Clear. HEART: Regular S1-S2 without audible murmurs or rubs or gallops. ABDOMEN: Normoactive bowel sounds. Soft, nontender. No palpable masses. EXTREMITIES: No clubbing or cyanosis or edema. SKIN: No rash. NEUROLOGIC: Unable to fully assess. Not following commands. IMPRESSION 1. Gram-negative bacterial sepsis due to Proteus 2. UTI due to Proteus and e. coli. Source of sepsis. 3. Altered mental status likely baseline and possibly infection making it worse. Appears improved. 4. Leukocytosis improved. Appears stable. RECOMMENDATIONS 1. Monitor clinical response. 2. Complete the Azactam until 03/06/16. I will sign off now. Yifan Allen MD Mar 04, 2016 18:46
[2016-03-04] MEDS: MIRTAZAPINE 15 MG TAB PO SCH (22:03)
[2016-03-05] MEDS: DOCUSATE SODIUM 100 MG/10 ML UDC G-TUBE SCH ×2 (00:45→12:45)
[2016-03-05] MEDS: AZTREONAM INJ 1,000 MG in SODIUM CHLORIDE 0.9% INJ 100 ML IV SCH ×2 (02:00→15:41)
[2016-03-05] MEDS: CHLORHEXIDINE GLUCONATE 2 % 1 PACK (2 CLOTHS) TOP SCH (04:00)
[2016-03-05] MEDS: FREE WATER G-TUBE SCH ×6 (04:00→21:12)
[2016-03-05] MEDS: LEVOTHYROXINE SODIUM 75 MCG TAB PO SCH (05:42)
[2016-03-05 05:56] VITALS: BP 112/54; PULSE 86; RESP 18; TEMP 98.7; O2SAT 96
[2016-03-05] MEDS: INSULIN ASPART SUPPLEMENTAL SCALE SQ SCH ×4 (06:25→21:13)
[2016-03-05 08:00] VITALS: BP 117/55; PULSE 87; RESP 20; TEMP 99.4; O2SAT 95
[2016-03-05] MEDS: NYSTATIN SUSP 500,000 U/5 ML CUP SWAB SCH ×3 (08:38→21:12)
[2016-03-05] MEDS: ASPIRIN EC 81 MG TABEC PO SCH (08:38)
[2016-03-05] MEDS: SODIUM CHLORIDE 0.9% FLUSH 5 ML FLUSH IV FLUSH SCH ×2 (08:39→21:00)
[2016-03-05] MEDS: MUPIROCIN 2% OINT 1 APPLIC/GM SYR NASAL SCH ×2 (08:39→21:14)
[2016-03-05] MEDS: CLOPIDOGREL 75 MG TAB PO SCH (08:39)
[2016-03-05] MEDS: ESCITALOPRAM OXALATE 10 MG TAB PO SCH (08:39)
[2016-03-05] MEDS: DIVALPROEX SODIUM SPRINKLES 125 MG CAP PO SCH ×2 (08:39→21:13)
[2016-03-05] MEDS: LANSOPRAZOLE SOLUTAB 30 MG TAB NG SCH (08:39)
[2016-03-05] MEDS: COLLAGENASE OINT 30 GM TUBE TOP SCH (08:45)
[2016-03-05] MEDS ORDERED: FUROSEMIDE 40 MG/4 ML VIAL IV PUSH ONE (09:00)
--- NOTE | 2016-03-05 09:06 | HHI.PR ---
Subjective Remarks Follow-up for somnolence and poor appetite Still somnolent but better, awake, knows her name. Denies any shortness of breath or pain. Still not eating much. Fair urine output, -800 cc overnight Objective Vitals Vital Signs Date Time Temp Pulse Resp B/P Pulse Ox O2 Delivery O2 Flow Rate FiO2 03/05/16 08:00 99.4 87 20 117/55 95 03/05/16 05:56 98.7 86 18 112/54 96 03/04/16 23:48 98.9 88 20 116/52 95 03/04/16 21:00 Room Air 03/04/16 19:00 84 03/04/16 18:00 88 03/04/16 17:49 98 21 03/04/16 17:00 89 03/04/16 16:00 92 03/04/16 15:55 98.0 89 20 100/68 98 03/04/16 14:00 85 03/04/16 13:00 97 03/04/16 12:05 99.0 82 18 118/58 96 03/04/16 12:00 84 03/04/16 11:00 80 03/04/16 10:15 97 21 03/04/16 10:00 86 I/O 03/04/16 03/04/16 03/04/16 03/05/16 03/05/16 03/05/16 07:00 15:00 23:00 07:00 15:00 23:00 Intake Total 2154 ml Output Total 3550 ml 750 ml Balance -1396 ml -750 ml Intake IV Total 922 ml Tube Feeding 632 ml Other 600 ml Output Urine Total 3550 ml 750 ml # Bowel Movements 1 1 Result Diagram: 03/04/16 0440 Objective Remarks Not in distress PERRL, pink conjunctiva without injection, anicteric NG tube in place Supple neck, no masses Normal rate and regular rhythm, no murmurs gallops or rubs appreciated. Clear to auscultation and symmetric bilaterally, poor effort. Normal bowel sounds, soft, non-tender, nondistended, no guarding. Extremities without clubbing, cyanosis, 2 + edema legs and upper extremities.- Improving No rash of generalized distribution. Awake, oriented to self, moves extremities, muscle strength testing upper extremities 4 over 5, symmetric. Speech is difficult to understand. Date of Insertion: Feb 25, 2016 Date of Insertion: Feb 25, 2016 A/P Assessment and Plan This is an 85-year-old female who was admitted for septic shock secondary to Proteus UTI and also sustained a left cerebellar lacunar infarct Septic shock secondary to Proteus UTI and bacteremia-infectious disease following, continue Azactam until 03/06/16. Urine culture eventually grew Escherichia coli and Proteus, blood culture grew Proteus. Infectious disease has signed off. Toxic encephalopathy with delirium-secondary to urosepsis, monitor, may also be secondary to CVA, still sleepy, [address] Sinemet, Lexapro, and Remeron on hold. 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 Continue aspirin, LDL is fine. History of Parkinsons disease-Depakote, hold Lexapro, Sinemet and Remeron. Ativan on hold. Nutrition-speech therapy following, has NG tube, follow-up portfolio accountant recommendations, might need a PEG tube. Continue pure and nectar thick today. Also dietary for calorie counting, tube feeds at night. Coronary artery disease, hypertension-history of cardiac stents in the past, blood pressure stable. Continue aspirin and Plavix Acute renal failure-resolved, recheck BMP tomorrow. Edema- chest x-ray personally reviewed showed pulmonary edema and developing right sided pleural effusion, continue Lasix, BNP elevated, recheck BMP tomorrow , urine output monitoring. Hyponatremia-improving, continue water flushes every 4 hours. Hematuria- resolved- zamarripa draining grossly clear yellow urine Diabetes mellitus-hold metformin, insulin sliding scale for now Decubitus ulcer-sacrum -Wound care ff Prophylaxis: GI Prophylaxis: Lansoprazole DVT prophylaxis: SCDs Palliative care consulted but patient's son refused Transferred to regular floor. Will eventually need rehabilitation. Mariposa Conte MD Mar 05, 2016 09:06
[2016-03-05 09:36] LABS: AUTOMATED NEUTROPHIL # 8.9 TH/MM3 (1.8-7.7); BASOPHIL % 0.3 % (0.0-2.0); EOSINOPHIL # 0.5 TH/MM3 (0-0.4); EOSINOPHIL % 3.3 % (0.0-4.0); HEMATOCRIT 25.5 % (35.0-46.0); LYMPH % 28.7 % (9.0-44.0); MEAN CELL VOLUME 93.1 FL (80.0-100.0); MEAN CORPUSCULAR HEMOGLOBIN 30.5 PG (27.0-34.0); MEAN CORPUSCULAR HGB CONC 32.7 % (32.0-36.0); MONO % 4.4 % (0.0-8.0); NEUT % 63.3 % (16.0-70.0); PLATELET COUNT 251 TH/MM3 (150-450); RED BLOOD COUNT 2.74 MIL/MM3 (4.00-5.30); WHITE BLOOD COUNT 14.1 TH/MM3 (4.0-11.0)
[2016-03-05 09:38] LABS: HEMO FLAGS AUTO DIFF
[2016-03-05 10:02] LABS: POTASSIUM 4.7 MEQ/L (3.5-5.1)
[2016-03-05 11:07] LABS: BANDS 7 % (0-6); EOSINOPHILS 2 % (0-4); METAMYELOCYTES 1 % (0-1); NEUTROPHIL # MANUAL DIFF 9.6 TH/MM3 (1.8-7.7); POLYS (SEG NEUTROPHILS) 60 % (16-70); WBC DIFF SAMPLE 100
[2016-03-05 11:08] LABS: PLATELET ESTIMATE SMEAR NORMAL (NORMAL); PLATELET MORPHOLOGY NORMAL (NORMAL); SCAN/DIFF FINAL DIFF MANUAL
[2016-03-05 12:00] VITALS: BP 104/68; PULSE 86; RESP 20; TEMP 99.2; O2SAT 96
[2016-03-05 12:17] VITALS: O2SAT 93
[2016-03-05 16:00] VITALS: BP 102/60; PULSE 91; RESP 21; TEMP 96.6; O2SAT 95
[2016-03-05] MEDS ORDERED: FUROSEMIDE 20 MG/2 ML VIAL IV PUSH ONE (16:00)
[2016-03-05 21:41] VITALS: BP 108/59; PULSE 92; RESP 20; TEMP 97.9; O2SAT 95
[2016-03-06] VITALS (7 sets, daily range): BP systolic 92–129; BP diastolic 52–63; PULSE 87–93; RESP 16–22; TEMP 96.9–99.6; O2SAT 94–98
[2016-03-06] MEDS: DOCUSATE SODIUM 100 MG/10 ML UDC G-TUBE SCH ×3 (00:45→23:37)
[2016-03-06] MEDS: AZTREONAM INJ 1,000 MG in SODIUM CHLORIDE 0.9% INJ 100 ML IV SCH ×2 (02:25→13:42)
[2016-03-06] MEDS: CHLORHEXIDINE GLUCONATE 2 % 1 PACK (2 CLOTHS) TOP SCH (03:37)
[2016-03-06] MEDS: FREE WATER G-TUBE SCH ×7 (04:00→23:37)
[2016-03-06] MEDS: LEVOTHYROXINE SODIUM 75 MCG TAB PO SCH (05:14)
[2016-03-06] MEDS: INSULIN ASPART SUPPLEMENTAL SCALE SQ SCH ×4 (06:02→22:09)
[2016-03-06 06:06] LABS: BICARBONATE 27.1 MEQ/L (21.0-32.0); POTASSIUM 4.9 MEQ/L (3.5-5.1)
--- NOTE | 2016-03-06 08:16 | HHI.PR ---
Subjective Remarks Follow-up for altered mental status Poor oral intake. Objective Vitals Vital Signs Date Time Temp Pulse Resp B/P Pulse Ox O2 Delivery O2 Flow Rate FiO2 03/06/16 04:10 98.9 93 22 111/52 95 03/06/16 02:12 99.4 88 22 125/57 94 03/05/16 21:41 97.9 92 20 108/59 95 03/05/16 16:00 96.6 91 21 102/60 95 03/05/16 12:17 93 21 03/05/16 12:00 99.2 86 20 104/68 96 I/O 03/05/16 03/05/16 03/05/16 03/06/16 03/06/16 03/06/16 07:00 15:00 23:00 07:00 15:00 23:00 Output Total 750 ml 1625 ml 2000 ml 1300 ml Balance -750 ml -1625 ml -2000 ml -1300 ml Output Urine Total 750 ml 1625 ml 2000 ml 1300 ml # Bowel Movements 1 1 2 6 Result Diagram: 03/05/16 0855 03/06/16 0505 Objective Remarks Not in distress PERRL, pink conjunctiva without injection, anicteric NG tube in place Supple neck, no masses Normal rate and regular rhythm, no murmurs gallops or rubs appreciated. Clear to auscultation and symmetric bilaterally, poor effort. Normal bowel sounds, soft, non-tender, nondistended, no guarding. Extremities without clubbing, cyanosis, 2 + edema legs and upper extremities.- Improving No rash of generalized distribution. Awake, oriented to self, moves extremities, muscle strength testing upper extremities 4 over 5, symmetric. Speech is difficult to understand. Date of Insertion: Feb 25, 2016 Date of Insertion: Feb 25, 2016 A/P Assessment and Plan This is an 85-year-old female who was admitted for septic shock secondary to Proteus UTI and also sustained a left cerebellar lacunar infarct Septic shock secondary to Proteus UTI and bacteremia- resolving,continue Azactam until 03/06/16. Urine culture eventually grew Escherichia coli and Proteus, blood culture grew Proteus. Infectious disease has signed off. Toxic encephalopathy with delirium-secondary to urosepsis, monitor, may also be secondary to CVA, still sleepy, but better. Sinemet, Lexapro, and Remeron on hold. 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 Continue aspirin, LDL is fine. History of Parkinsons disease-Depakote, hold Lexapro, Sinemet and Remeron. Ativan on hold. Nutrition-speech therapy following, has NG tube, follow-up casino floor walker recommendations, might need a PEG tube. Continue pure and nectar thick today. Also dietary for calorie counting, tube feeds at night. Calorie counting finishes 03/07, if patient still not eating, will insert PEG tube tomorrow and discharge. Discussed extensively with son 03/06/16 and agreed with PEG tube placement. Coronary artery disease, hypertension-history of cardiac stents in the past, blood pressure stable. Continue aspirin and Plavix Acute renal failure-resolved, -1.3 L today, hold Lasix, recheck BMP tomorrow. Edema- chest x-ray personally reviewed showed pulmonary edema and developing right sided pleural effusion, or Lasix today with increasing creatinine. Recheck BMP tomorrow. Very good urine output, -1.3 L. Hyponatremia-improving, continue water flushes every 4 hours. Check CBC tomorrow Hematuria- resolved- zamarripa draining grossly clear yellow urine Diabetes mellitus-hold metformin, insulin sliding scale for now Decubitus ulcer-sacrum -Wound care ff Prophylaxis: GI Prophylaxis: Lansoprazole DVT prophylaxis: [facility] Palliative care consulted but patient's son refused. Discussed with patient's Son: [phone] Jovany Tosha 03/06/16. Agree with PEG tube placement, patient remains DNR/DNI. Agreed to discharge back to [facility] once PEG tube in place. I spent 35 minutes [id number] with the patient or on the chapman discussing the patient's disposition, prognosis and plan of care with his/her caregivers. Over half of time spent was devoted to counseling the patient regarding placement--- and coordinating care with caregivers and case management. Mariposa Conte MD Mar 06, 2016 08:16
[2016-03-06] MEDS: SODIUM CHLORIDE 0.9% FLUSH 5 ML FLUSH IV FLUSH SCH ×2 (09:00→22:09)
[2016-03-06] MEDS: MUPIROCIN 2% OINT 1 APPLIC/GM SYR NASAL SCH ×2 (09:00→22:09)
[2016-03-06] MEDS ORDERED: FUROSEMIDE 40 MG/4 ML VIAL IV PUSH SCH (09:00)
[2016-03-06] MEDS: COLLAGENASE OINT 30 GM TUBE TOP SCH (09:00)
[2016-03-06] MEDS ORDERED: FUROSEMIDE 20 MG/2 ML VIAL IV PUSH SCH (09:00)
[2016-03-06] MEDS: CLOPIDOGREL 75 MG TAB PO SCH (10:11)
[2016-03-06] MEDS: NYSTATIN SUSP 500,000 U/5 ML CUP SWAB SCH ×4 (10:11→22:08)
[2016-03-06] MEDS: ASPIRIN EC 81 MG TABEC PO SCH (10:12)
[2016-03-06] MEDS: LANSOPRAZOLE SOLUTAB 30 MG TAB NG SCH (10:12)
[2016-03-06] MEDS: DIVALPROEX SODIUM SPRINKLES 125 MG CAP PO SCH ×2 (10:12→22:09)
[2016-03-07] VITALS (8 sets, daily range): BP systolic 108–132; BP diastolic 57–63; PULSE 85–89; RESP 16–22; TEMP 97.2–98.4; O2SAT 93–97
[2016-03-07] MEDS: FREE WATER G-TUBE SCH ×5 (03:45→20:00)
[2016-03-07] MEDS: CHLORHEXIDINE GLUCONATE 2 % 1 PACK (2 CLOTHS) TOP SCH (03:46)
[2016-03-07] MEDS: LEVOTHYROXINE SODIUM 75 MCG TAB PO SCH (05:35)
[2016-03-07] MEDS: INSULIN ASPART SUPPLEMENTAL SCALE SQ SCH ×4 (05:47→22:45)
[2016-03-07 06:04] LABS: AUTOMATED NEUTROPHIL # 11.2 TH/MM3 (1.8-7.7); BASOPHIL # 0.1 TH/MM3 (0-0.2); BASOPHIL % 0.4 % (0.0-2.0); EOSINOPHIL # 0.5 TH/MM3 (0-0.4); EOSINOPHIL % 2.7 % (0.0-4.0); HEMATOCRIT 25.5 % (35.0-46.0); HEMO FLAGS DIFF FINAL; LYMPH % 25.3 % (9.0-44.0); LYMPHOCYTE # 4.3 TH/MM3 (1.0-4.8); MEAN CELL VOLUME 94.1 FL (80.0-100.0); MEAN CORPUSCULAR HGB CONC 32.9 % (32.0-36.0); MONO % 5.3 % (0.0-8.0); NEUT % 66.3 % (16.0-70.0); PLATELET COUNT 330 TH/MM3 (150-450); RED BLOOD COUNT 2.71 MIL/MM3 (4.00-5.30); RED CELL DISTRIBUTION WIDTH 14.1 % (11.6-17.2); WHITE BLOOD COUNT 16.9 TH/MM3 (4.0-11.0)
[2016-03-07 06:18] LABS: BICARBONATE 29.3 MEQ/L (21.0-32.0); MAGNESIUM 2.3 MG/DL (1.5-2.5); POTASSIUM 5.6 MEQ/L (3.5-5.1)
[2016-03-07] MEDS: MUPIROCIN 2% OINT 1 APPLIC/GM SYR NASAL SCH ×2 (08:18→22:43)
[2016-03-07] MEDS: NYSTATIN SUSP 500,000 U/5 ML CUP SWAB SCH ×4 (08:18→22:42)
[2016-03-07] MEDS: ASPIRIN EC 81 MG TABEC PO SCH (08:19)
[2016-03-07] MEDS: DIVALPROEX SODIUM SPRINKLES 125 MG CAP PO SCH ×2 (08:19→22:43)
[2016-03-07] MEDS: COLLAGENASE OINT 30 GM TUBE TOP SCH (08:19)
[2016-03-07] MEDS: LANSOPRAZOLE SOLUTAB 30 MG TAB NG SCH (08:19)
[2016-03-07] MEDS: SODIUM CHLORIDE 0.9% FLUSH 5 ML FLUSH IV FLUSH SCH ×2 (08:19→22:43)
[2016-03-07] MEDS: CLOPIDOGREL 75 MG TAB PO SCH (08:19)
--- NOTE | 2016-03-07 08:42 | HHI.PR ---
Subjective Remarks Follow-up for nutrition, shortness of breath Not eating, eating maximum about 25% of her food. Poor historian, still on oxygen. With leukocytosis. Afebrile. Objective Vitals Vital Signs Date Time Temp Pulse Resp B/P Pulse Ox O2 Delivery O2 Flow Rate FiO2 03/07/16 04:03 98.0 85 22 111/59 94 03/07/16 00:36 97.2 89 22 120/61 97 03/06/16 20:10 97.4 87 18 125/56 95 03/06/16 16:00 99.6 89 17 129/55 98 03/06/16 12:00 96.9 89 17 92/61 98 03/06/16 10:25 94 21 I/O 03/06/16 03/06/16 03/06/16 03/07/16 03/07/16 03/07/16 07:00 15:00 23:00 07:00 15:00 23:00 Intake Total 200 ml Output Total 2000 ml 2025 ml 550 ml 1900 ml Balance -2000 ml -2025 ml -550 ml -1900 ml 200 ml Other 200 ml Output Urine Total 2000 ml 2025 ml 550 ml 1900 ml # Bowel Movements 2 8 1 4 Result Diagram: 03/07/16 0545 03/07/16 0545 Objective Remarks Not in distress PERRL, pink conjunctiva without injection, anicteric NG tube in place Supple neck, no masses Normal rate and regular rhythm, no murmurs gallops or rubs appreciated. Rhonchorous breath sounds, occasional wheezing, no crackles poor effort. Normal bowel sounds, soft, non-tender, nondistended, no guarding. Extremities without clubbing, cyanosis, 1 + edema legs and upper extremities No rash of generalized distribution. 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 Speech is difficult to understand. Date of Insertion: Feb 25, 2016 Date of Insertion: Feb 25, 2016 A/P Assessment and Plan This is an 85-year-old female who was admitted for septic shock secondary to Proteus UTI and also sustained a left cerebellar lacunar infarct Septic shock secondary to Proteus UTI and bacteremia- resolving, status post Azactam 03/06/16. Urine culture eventually grew Escherichia coli and Proteus, blood culture grew Proteus. Infectious disease has signed off. Toxic encephalopathy with delirium-secondary to urosepsis, monitor, may also be secondary to CVA, still sleepy but arousable, but better. Sinemet, Lexapro, and Remeron on hold. 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 Continue aspirin, LDL is fine. History of Parkinsons disease-Depakote, hold Lexapro, Sinemet and Remeron. Ativan on hold. Nutrition-speech therapy following, has NG tube, Continue pure and nectar thick. On calorie counting, tube feeds at night. Calorie counting finishes 03/07 , patient only eating about 25% of meals. Discussed extensively with son and agreed with PEG tube placement. Will need a PEG tube, insert PEG tube today, consult invasive radiology. Coronary artery disease, hypertension-history of cardiac stents in the past, blood pressure stable. Continue aspirin and Plavix Acute renal failure-resolved, creatinine stable, better. Edema- chest x-ray personally reviewed showed pulmonary edema and developing right sided pleural effusion, or Lasix today with increasing creatinine. Recheck BMP tomorrow. Very good urine output, -1.3 L. Hyponatremia-improving, continue water flushes every 4 hours. C Hematuria- resolved- zamarripa draining grossly clear yellow urine Diabetes mellitus-hold metformin, insulin sliding scale for now Leukocytosis-also clinically with rhonchi and wheezing from pulmonary examination, check chest x-ray. Hyperkalemia-recheck potassium. Decubitus ulcer-sacrum, continue Zamarripa catheter -Wound care ff Prophylaxis: GI Prophylaxis: Lansoprazole [facility] Palliative care consulted but patient's son refused. Discussed with patient's Son: [phone] Jovany Block 03/06/16. Agree with PEG tube placement, patient remains DNR/DNI. Agreed to discharge back to [facility] once PEG tube in place. I spent 35 minutes [id number] with the patient or on the chapman discussing the patient's disposition, prognosis and plan of care with his/her caregivers. Over half of time spent was devoted to counseling the patient regarding placement--- and coordinating care with caregivers and case management. Mariposa Conte MD Mar 07, 2016 08:42
--- NOTE | 2016-03-07 09:26 | RADRPT ---
EXAM DATE/TIME: 03/07/2016 08:55 [facility] COMPARISON: CHEST SINGLE AP, March 04, 2016, 11:38. INDICATIONS: Short of breath MEDICAL HISTORY: None. SURGICAL HISTORY: None. ENCOUNTER: Subsequent ACUITY: 1 week PAIN SCORE: Non-responsive. LOCATION: Bilateral chest FINDINGS: Nasogastric tube, central venous catheter are in good position. Mild interstitial prominence is evid ent. Heart and pulmonary vascularity are normal. CONCLUSION: 1. Interval improvement with less interstitial edema. 2. Nasogastric tube and central venous catheter are in good position. Edgar Moore MD FACR on March 07, 2016 at 9:09 Board Certified Radiologist. This report was verified electronically.
[2016-03-07] MEDS: DOCUSATE SODIUM 100 MG/10 ML UDC G-TUBE SCH (13:06)
[2016-03-07 20:27] LABS: BICARBONATE 26.3 MEQ/L (21.0-32.0); POTASSIUM 5.6 MEQ/L (3.5-5.1)
[2016-03-08] VITALS: BP 119/59; PULSE 76; RESP 18; TEMP 98.8; O2SAT 96
[2016-03-08] MEDS: DOCUSATE SODIUM 100 MG/10 ML UDC G-TUBE SCH ×2 (00:14→12:23)
[2016-03-08] MEDS: CHLORHEXIDINE GLUCONATE 2 % 1 PACK (2 CLOTHS) TOP SCH (03:55)
[2016-03-08] MEDS: FREE WATER G-TUBE SCH ×6 (03:55→20:00)
[2016-03-08 04:00] VITALS: BP 115/72; PULSE 84; RESP 18; TEMP 98.9; O2SAT 94
[2016-03-08] MEDS: LEVOTHYROXINE SODIUM 75 MCG TAB PO SCH (05:38)
[2016-03-08] MEDS: INSULIN ASPART SUPPLEMENTAL SCALE SQ SCH ×4 (05:45→20:23)
[2016-03-08 07:16] LABS: AUTOMATED NEUTROPHIL # 9.1 TH/MM3 (1.8-7.7); BASOPHIL # 0.1 TH/MM3 (0-0.2); BASOPHIL % 0.4 % (0.0-2.0); EOSINOPHIL # 0.5 TH/MM3 (0-0.4); EOSINOPHIL % 3.5 % (0.0-4.0); HEMATOCRIT 25.1 % (35.0-46.0); HEMO FLAGS DIFF FINAL; LYMPH % 28.1 % (9.0-44.0); LYMPHOCYTE # 4.1 TH/MM3 (1.0-4.8); MEAN CELL VOLUME 93.8 FL (80.0-100.0); MEAN CORPUSCULAR HEMOGLOBIN 30.4 PG (27.0-34.0); MEAN CORPUSCULAR HGB CONC 32.4 % (32.0-36.0); MONO % 6.3 % (0.0-8.0); NEUT % 61.7 % (16.0-70.0); PLATELET COUNT 372 TH/MM3 (150-450); RED BLOOD COUNT 2.68 MIL/MM3 (4.00-5.30); RED CELL DISTRIBUTION WIDTH 14.2 % (11.6-17.2); WHITE BLOOD COUNT 14.7 TH/MM3 (4.0-11.0)
[2016-03-08 07:30] LABS: POTASSIUM 5.7 MEQ/L (3.5-5.1)
[2016-03-08] MEDS ORDERED: SODIUM POLYSTYRENE SULFONATE SUSP 15 GM/60 ML CUP PO ONE (08:30)
[2016-03-08] MEDS ORDERED: FUROSEMIDE 20 MG/2 ML VIAL IV PUSH ONE (08:30)
--- NOTE | 2016-03-08 08:58 | HHI.PR ---
Subjective Remarks Follow-up for poor oral intake For PEG tube insertion yesterday, however patient still and Plavix. No complaints. No overnight events. -2 L overnight Objective Vitals Vital Signs Date Time Temp Pulse Resp B/P Pulse Ox O2 Delivery O2 Flow Rate FiO2 03/08/16 04:00 98.9 84 18 115/72 94 03/08/16 00:00 98.8 76 18 119/59 96 03/07/16 20:00 97.8 88 16 108/57 93 03/07/16 18:35 94 21 03/07/16 17:43 97.7 86 16 130/59 94 03/07/16 12:47 98.4 86 16 132/63 97 03/07/16 09:47 95 21 I/O 03/07/16 03/07/16 03/07/16 03/08/16 03/08/16 03/08/16 07:00 15:00 23:00 07:00 15:00 23:00 Intake Total 200 ml Output Total 1900 ml 1250 ml 850 ml 350 ml Balance -1900 ml -1050 ml -850 ml -350 ml Other 200 ml Output Urine Total 1900 ml 1250 ml 850 ml 350 ml # Bowel Movements 4 Result Diagram: 03/08/16 0620 03/08/16 0620 Objective Remarks Not in distress PERRL, pink conjunctiva without injection, anicteric NG tube in place Supple neck, no masses Normal rate and regular rhythm, no murmurs gallops or rubs appreciated. Rhonchorous breath sounds, occasional wheezing, no crackles poor effort. Normal bowel sounds, soft, non-tender, nondistended, no guarding. Extremities without clubbing, cyanosis, 1 + edema legs and upper extremities No rash of generalized distribution. 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 Speech is difficult to understand. Date of Insertion: Feb 25, 2016 Date of Insertion: Feb 25, 2016 A/P Assessment and Plan This is an 85-year-old female who was admitted for septic shock secondary to Proteus UTI and also sustained a left cerebellar lacunar infarct Septic shock secondary to Proteus UTI and bacteremia- resolving, status post Azactam 03/06/16. Urine culture eventually grew Escherichia coli and Proteus, blood culture grew Proteus. Infectious disease has signed off. Toxic encephalopathy with delirium-secondary to urosepsis, monitor, may also be secondary to CVA, still sleepy but arousable, but better. Sinemet, Lexapro, and Remeron on hold. 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 Continue aspirin, LDL is fine. Hold Plavix. History of Parkinsons disease-Depakote, hold Lexapro, Sinemet and Remeron. Ativan on hold. Nutrition-speech therapy following, has NG tube, Continue pure and nectar thick. Did not pass calorie counting. Discussed extensively with son 03/06/16 and agreed with PEG tube placement. Will need a PEG tube, insert PEG tube on Monday, on Plavix, hold Plavix for now. Per dietary, start Glucerna 1.5 at 50 cc per hour for 22 hours. Coronary artery disease, hypertension-history of cardiac stents in the past, blood pressure stable. Continue aspirin, hold Plavix Acute renal failure-resolved, creatinine stable, better. Edema- repeated chest x-ray, personally reviewed, shows decrease in edema. Still with mild pleural effusion Recheck BMP tomorrow. -2 L. Will give another dose of Lasix today. Creatinine is stable. Hyponatremia-improving, continue water flushes every 4 hours. Hematuria- resolved- zamarripa draining grossly clear yellow urine Diabetes mellitus-hold metformin, insulin sliding scale for now Leukocytosis-also clinically with rhonchi and wheezing from pulmonary examination, chest x-ray as above. Hyperkalemia -we'll give Kayexalate, will give a dose of Lasix, recheck BMP at 2 PM. Recheck tomorrow. Decubitus ulcer-sacrum, continue Zamarripa catheter -Wound care ff Prophylaxis: GI Prophylaxis: Lansoprazole DVT prophylaxis: [facility] Palliative care consulted but patient's son refused. Discussed with patient's Son: [phone] Jovany Givens 03/06/16. Agree with PEG tube placement, patient remains DNR/DNI. Agreed to discharge back to [facility] once PEG tube in place. Discharge Planning Discharged on Monday after PEG tube placement Mariposa Conte MD Mar 08, 2016 08:58 Mariposa Conte MD Mar 08, 2016 08:58
[2016-03-08 09:23] VITALS: BP 124/61; PULSE 87; RESP 18; TEMP 95.2; O2SAT 95
[2016-03-08] MEDS: DIVALPROEX SODIUM SPRINKLES 125 MG CAP PO SCH ×2 (09:23→20:22)
[2016-03-08] MEDS: NYSTATIN SUSP 500,000 U/5 ML CUP SWAB SCH ×4 (09:23→20:21)
[2016-03-08] MEDS: MUPIROCIN 2% OINT 1 APPLIC/GM SYR NASAL SCH ×2 (09:23→20:21)
[2016-03-08] MEDS: LANSOPRAZOLE SOLUTAB 30 MG TAB NG SCH (09:23)
[2016-03-08] MEDS: ASPIRIN EC 81 MG TABEC PO SCH (09:23)
[2016-03-08] MEDS: COLLAGENASE OINT 30 GM TUBE TOP SCH (09:24)
[2016-03-08] MEDS: SODIUM CHLORIDE 0.9% FLUSH 5 ML FLUSH IV FLUSH SCH ×2 (09:24→20:22)
[2016-03-08 12:29] VITALS: BP 109/69; PULSE 91; RESP 18; TEMP 99; O2SAT 99
[2016-03-08 16:04] LABS: BICARBONATE 26.2 MEQ/L (21.0-32.0); POTASSIUM 5.3 MEQ/L (3.5-5.1)
[2016-03-08 16:38] VITALS: BP 108/52; PULSE 91; RESP 18; TEMP 98.9; O2SAT 95
[2016-03-08 21:12] VITALS: BP 126/69; PULSE 96; RESP 19; TEMP 99.2; O2SAT 98
[2016-03-09] MEDS: DOCUSATE SODIUM 100 MG/10 ML UDC G-TUBE SCH ×3 (00:12→23:14)
[2016-03-09 00:36] VITALS: BP 95/67; PULSE 95; RESP 19; TEMP 97.8; O2SAT 94
[2016-03-09] MEDS: FREE WATER G-TUBE SCH ×7 (04:00→23:14)
[2016-03-09] MEDS: CHLORHEXIDINE GLUCONATE 2 % 1 PACK (2 CLOTHS) TOP SCH (04:00)
[2016-03-09 04:33] VITALS: BP 112/69; PULSE 95; RESP 19; TEMP 98.3; O2SAT 92
[2016-03-09] MEDS: INSULIN ASPART SUPPLEMENTAL SCALE SQ SCH ×4 (06:36→20:33)
[2016-03-09] MEDS: LEVOTHYROXINE SODIUM 75 MCG TAB PO SCH (06:36)
[2016-03-09 07:53] LABS: BICARBONATE 25.8 MEQ/L (21.0-32.0); POTASSIUM 5.2 MEQ/L (3.5-5.1)
[2016-03-09 08:00] VITALS: BP 116/54; PULSE 95; RESP 16; TEMP 99.6; O2SAT 95
[2016-03-09] MEDS: COLLAGENASE OINT 30 GM TUBE TOP SCH (09:00)
--- NOTE | 2016-03-09 09:14 | HHI.PR ---
Subjective Remarks Follow-up for poor nutrition Nothing by mouth for now per speech therapy, no overnight events. No shortness of breath. Poor historian. Objective Vitals Vital Signs Date Time Temp Pulse Resp B/P Pulse Ox O2 Delivery O2 Flow Rate FiO2 03/09/16 04:33 03/09/16 04:33 98.3 95 19 112/69 92 03/09/16 00:36 97.8 95 19 95/67 94 03/08/16 21:12 99.2 96 19 126/69 98 03/08/16 16:38 98.9 91 18 108/52 95 03/08/16 12:29 99.0 91 18 109/69 99 03/08/16 09:23 95.2 87 18 124/61 95 I/O 03/08/16 03/08/16 03/08/16 03/09/16 03/09/16 03/09/16 07:00 15:00 23:00 07:00 15:00 23:00 Intake Total 838 ml Output Total 350 ml 1450 ml 1000 ml Balance -350 ml -612 ml -1000 ml Tube Feeding 638 ml Other 200 ml Output Urine Total 350 ml 1450 ml 1000 ml Result Diagram: 03/08/16 0620 03/09/16 0711 Objective Remarks Not in distress PERRL, pink conjunctiva without injection, anicteric NG tube in place Supple neck, no masses Normal rate and regular rhythm, no murmurs gallops or rubs appreciated. Rhonchorous breath sounds, occasional wheezing, no crackles poor effort. Normal bowel sounds, soft, non-tender, nondistended, no guarding. Extremities without clubbing, cyanosis, 1 + edema legs and upper extremities No rash of generalized distribution. 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 Speech is difficult to understand. Date of Insertion: Feb 25, 2016 Date of Insertion: Feb 25, 2016 A/P Assessment and Plan This is an 85-year-old female who was admitted for septic shock secondary to Proteus UTI and also sustained a left cerebellar lacunar infarct Septic shock secondary to Proteus UTI and bacteremia- resolving, status post Azactam 03/06/16. Urine culture eventually grew Escherichia coli and Proteus, blood culture grew Proteus. Infectious disease has signed off. Toxic encephalopathy with delirium-secondary to urosepsis, monitor, may also be secondary to CVA, still sleepy but arousable, but better. Sinemet, Lexapro, and Remeron on hold. 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 Continue aspirin, LDL is fine. Hold Plavix. History of Parkinsons disease-Depakote, hold Lexapro, Sinemet and Remeron. Ativan on hold. Nutrition-speech therapy following, has NG tube, nothing by mouth for now per dietary. Did not pass calorie counting. Discussed extensively with son and agreed with PEG tube placement. Will need a PEG tube, insert PEG tube on Monday, on Plavix, hold Plavix for now. Per dietary, start Glucerna 1.5 at 50 cc per hour for 22 hours. Coronary artery disease, hypertension-history of cardiac stents in the past, blood pressure stable. Continue aspirin, hold Plavix Acute renal failure-resolved, creatinine stable, better. Edema- repeated chest x-ray, personally reviewed, shows decrease in edema. Still with mild pleural effusion Recheck BMP tomorrow. -2 L. continue Lasix, creatinine is stable, recheck chest x-ray tomorrow. Hyponatremia-improving, continue water flushes every 4 hours. Hematuria- resolved- zamarripa draining grossly clear yellow urine Diabetes mellitus-hold metformin, insulin sliding scale for now Leukocytosis-also clinically with rhonchi and wheezing from pulmonary examination, chest x-ray as above. Hyperkalemia -we'll give Kayexalate again today, continue Lasix, recheck BMP tomorrow Decubitus ulcer-sacrum, continue Zamarripa catheter -Wound care ff Prophylaxis: GI Prophylaxis: Lansoprazole DVT prophylaxis: [facility]CD[facility] Palliative care consulted but patient's son refused. Discussed with patient's Son: [phone] Jovany Tosha 03/06/16. Agree with PEG tube placement, patient remains DNR/DNI. Agreed to discharge back to [facility] once PEG tube in place. Discharge Planning Discharged on Monday after PEG tube placement Mariposa Conte MD Mar 09, 2016 09:14
[2016-03-09] MEDS: MUPIROCIN 2% OINT 1 APPLIC/GM SYR NASAL SCH ×2 (09:38→20:32)
[2016-03-09] MEDS: SODIUM CHLORIDE 0.9% FLUSH 5 ML FLUSH IV FLUSH SCH ×2 (09:38→20:33)
[2016-03-09] MEDS: ASPIRIN EC 81 MG TABEC PO SCH (09:39)
[2016-03-09] MEDS: LANSOPRAZOLE SOLUTAB 30 MG TAB NG SCH (09:39)
[2016-03-09] MEDS: NYSTATIN SUSP 500,000 U/5 ML CUP SWAB SCH ×4 (09:39→20:32)
[2016-03-09] MEDS: DIVALPROEX SODIUM SPRINKLES 125 MG CAP PO SCH ×2 (09:39→20:32)
[2016-03-09] MEDS: COLLAGENASE OINT 30 GM TUBE TOP PRN (09:42)
[2016-03-09] MEDS: FUROSEMIDE 40 MG/4 ML VIAL IV PUSH SCH (11:21)
[2016-03-09 12:23] VITALS: BP 102/52; PULSE 92; RESP 20; TEMP 97.7; O2SAT 95
[2016-03-09 16:00] VITALS: BP 120/61; PULSE 95; RESP 17; TEMP 98.3; O2SAT 95
[2016-03-09 20:15] VITALS: BP 112/83; PULSE 90; RESP 18; TEMP 98.8; O2SAT 94
[2016-03-10 00:14] VITALS: BP 112/57; PULSE 91; RESP 18; TEMP 97.8; O2SAT 97
[2016-03-10 04:58] VITALS: BP_SYST 118; BP_SYST 134; BP_DIAS 64; BP_DIAS 70; PULSE 18; PULSE 90; RESP 17; TEMP 97.3; TEMP 97.9; O2SAT 94; O2SAT 96
[2016-03-10] MEDS: LEVOTHYROXINE SODIUM 75 MCG TAB PO SCH (05:18)
[2016-03-10] MEDS: FREE WATER G-TUBE SCH ×5 (05:19→20:00)
--- NOTE | 2016-03-10 06:50 | RADRPT ---
EXAM DATE/TIME: 03/10/2016 06:31 [facility] COMPARISON: CHEST SINGLE AP, March 07, 2016, 8:55. INDICATIONS : Short of breath, evaluate effusion MEDICAL HISTORY : Sepsis. UTI, AMS SURGICAL HISTORY : None. ENCOUNTER: Subsequent ACUITY: 1 week PAIN SCORE: Non-responsive. LOCATION: Bilateral chest FINDINGS: Nasogastric tube descends into the stomach. There is mild infiltrate and likely small effusion at the left base. Right lung is grossly clear. Heart size and pulmonary vascularity are normal. CONCLUSION: Mild left base infiltrate and effusion. Morales Mcpherson MD on March 10, 2016 at 6:48 Board Certified Radiologist. This report was verified electronically.
[2016-03-10 08:19] VITALS: BP 104/59; PULSE 86; RESP 18; TEMP 96.8; O2SAT 96
[2016-03-10] MEDS: NYSTATIN SUSP 500,000 U/5 ML CUP SWAB SCH ×4 (08:23→22:21)
[2016-03-10] MEDS: MUPIROCIN 2% OINT 1 APPLIC/GM SYR NASAL SCH ×2 (08:23→22:21)
[2016-03-10] MEDS: LANSOPRAZOLE SOLUTAB 30 MG TAB NG SCH (08:23)
[2016-03-10] MEDS: FUROSEMIDE 40 MG/4 ML VIAL IV PUSH SCH (08:24)
[2016-03-10] MEDS: DIVALPROEX SODIUM SPRINKLES 125 MG CAP PO SCH ×2 (08:25→22:21)
[2016-03-10] MEDS: ASPIRIN EC 81 MG TABEC PO SCH (08:25)
[2016-03-10] MEDS: SODIUM CHLORIDE 0.9% FLUSH 5 ML FLUSH IV FLUSH SCH ×2 (08:36→21:00)
[2016-03-10 08:37] LABS: BICARBONATE 28.9 MEQ/L (21.0-32.0); POTASSIUM 5.1 MEQ/L (3.5-5.1)
[2016-03-10] MEDS: COLLAGENASE OINT 30 GM TUBE TOP SCH (08:37)
--- NOTE | 2016-03-10 10:17 | HHI.PR ---
Subjective Remarks Follow-up for poor oral intake, encephalopathy Mental status stable, still not able to eat, for PEG tube placement tomorrow. No nausea or vomiting. Tube feeds at goal. Objective Vitals Vital Signs Date Time Temp Pulse Resp B/P Pulse Ox O2 Delivery O2 Flow Rate FiO2 03/10/16 08:19 96.8 86 18 104/59 96 03/10/16 04:58 97.9 18 17 118/64 96 03/10/16 00:14 97.8 91 18 112/57 97 03/09/16 20:15 98.8 90 18 112/83 94 03/09/16 16:00 98.3 95 17 120/61 95 03/09/16 12:23 97.7 92 20 102/52 95 I/O 03/09/16 03/09/16 03/09/16 03/10/16 03/10/16 03/10/16 07:00 15:00 23:00 07:00 15:00 23:00 Intake Total 1090 ml Output Total 1000 ml 1650 ml 360 ml Balance -1000 ml -1650 ml 730 ml Tube Feeding 690 ml Other 400 ml Output Urine Total 1000 ml 1650 ml 360 ml # Bowel Movements 1 1 Result Diagram: 03/08/16 0620 03/10/16 0800 Objective Remarks Not in distress PERRL, pink conjunctiva without injection, anicteric NG tube in place Supple neck, no masses Normal rate and regular rhythm, no murmurs gallops or rubs appreciated. Rhonchorous breath sounds, occasional wheezing, no crackles poor effort. Normal bowel sounds, soft, non-tender, nondistended, no guarding. Extremities without clubbing, cyanosis, 1 + edema legs and upper extremities No rash of generalized distribution. 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 Speech is difficult to understand. Date of Insertion: Feb 25, 2016 Date of Insertion: Feb 25, 2016 A/P Assessment and Plan This is an 85-year-old female who was admitted for septic shock secondary to Proteus UTI and also sustained a left cerebellar lacunar infarct Septic shock secondary to Proteus UTI and bacteremia- resolving, status post Azactam 03/06/16. Urine culture eventually grew Escherichia coli and Proteus, blood culture grew Proteus. Infectious disease has signed off. Toxic encephalopathy with delirium-secondary to urosepsis, monitor, may also be secondary to CVA, better. Sinemet, Lexapro, and Remeron on hold. 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 Continue aspirin, LDL is fine. Hold Plavix. History of Parkinsons disease-Depakote, hold Lexapro, Sinemet and Remeron. Ativan on hold. Nutrition-speech therapy following, has NG tube, nothing by mouth for now per dietary. Did not pass calorie counting. Discussed extensively with son and agreed with PEG tube placement. Will need a PEG tube, insert PEG tube on Monday, on Plavix, hold Plavix for now. Per dietary, start Glucerna 1.5 at 50 cc per hour for 22 hours. Coronary artery disease, hypertension-history of cardiac stents in the past, blood pressure stable. Continue aspirin, hold Plavix Acute renal failure-resolved, creatinine stable, better. Edema and pleural effusion-repeat chest x-ray today personally reviewed, pleural effusion on the left improving, still diuresing with Lasix. Hold Lasix today, recheck BMP tomorrow. Might need Lasix every other day Hyponatremia-improving, continue water flushes every 4 hours. Hematuria- resolved- zamarripa draining grossly clear yellow urine Diabetes mellitus-hold metformin, insulin sliding scale for now Leukocytosis-also clinically with rhonchi and wheezing from pulmonary examination, chest x-ray as above. Hyperkalemia - resolved, hold Lasix today. Recheck BMP tomorrow. Decubitus ulcer-sacrum, continue Zamarripa catheter -Wound care ff Prophylaxis: GI Prophylaxis: Lansoprazole DVT prophylaxis: SCD[facility] Palliative care consulted but patient's son refused. Discussed with patient's Son: [phone] Jovany Block 03/06/16. Agree with PEG tube placement, patient remains DNR/DNI. Agreed to discharge back to [facility] once PEG tube in place. Discussed with RN. Discharge Planning Discharged on Monday after PEG tube placement Mariposa Conte MD Mar 10, 2016 10:17
[2016-03-10 12:58] VITALS: BP 92/58; PULSE 89; RESP 18; TEMP 98.5; O2SAT 98
[2016-03-10] MEDS: INSULIN ASPART SUPPLEMENTAL SCALE SQ SCH ×2 (13:08→21:00)
[2016-03-10] MEDS: DOCUSATE SODIUM 100 MG/10 ML UDC G-TUBE SCH (13:08)
[2016-03-10 16:00] VITALS: BP 88/48; PULSE 87; RESP 18; TEMP 99.6; O2SAT 95
[2016-03-10] MEDS: SODIUM CHLOR 0.9% 1000 ML INJ 1,000 ML IV SCH (21:10)
[2016-03-10 23:30] VITALS: BP 109/54; PULSE 96; RESP 16; TEMP 98.3; O2SAT 96
[2016-03-11] VITALS (11 sets, daily range): BP systolic 90–130; BP diastolic 45–98; PULSE 62–98; RESP 18–21; TEMP 96–98.9; O2SAT 93–100
[2016-03-11] MEDS: DOCUSATE SODIUM 100 MG/10 ML UDC G-TUBE SCH ×2 (00:14→11:56)
[2016-03-11] MEDS: CHLORHEXIDINE GLUCONATE 2 % 1 PACK (2 CLOTHS) TOP SCH (00:14)
[2016-03-11] MEDS: FREE WATER G-TUBE SCH ×6 (04:00→20:00)
[2016-03-11] MEDS: LEVOTHYROXINE SODIUM 75 MCG TAB PO SCH (05:38)
[2016-03-11 06:32] LABS: BICARBONATE 29.1 MEQ/L (21.0-32.0); POTASSIUM 4.7 MEQ/L (3.5-5.1)
[2016-03-11] MEDS: INSULIN ASPART SUPPLEMENTAL SCALE SQ SCH ×4 (07:00→21:00)
[2016-03-11] MEDS: SODIUM CHLOR 0.9% 1000 ML INJ 1,000 ML IV SCH ×2 (07:40→15:14)
[2016-03-11] MEDS: MUPIROCIN 2% OINT 1 APPLIC/GM SYR NASAL SCH ×2 (09:00→21:22)
[2016-03-11] MEDS: DIVALPROEX SODIUM SPRINKLES 125 MG CAP PO SCH ×2 (09:00→21:22)
[2016-03-11] MEDS: SODIUM CHLORIDE 0.9% FLUSH 5 ML FLUSH IV FLUSH SCH ×2 (09:00→21:00)
[2016-03-11] MEDS: LANSOPRAZOLE SOLUTAB 30 MG TAB NG SCH (09:00)
[2016-03-11] MEDS: ASPIRIN EC 81 MG TABEC PO SCH (09:00)
[2016-03-11] MEDS: COLLAGENASE OINT 30 GM TUBE TOP SCH (09:00)
[2016-03-11] MEDS: NYSTATIN SUSP 500,000 U/5 ML CUP SWAB SCH ×4 (09:00→21:22)
[2016-03-11] MEDS ORDERED: MIDAZOLAM HCL 5 MG/5 ML VIAL ONE (09:03)
[2016-03-11] MEDS ORDERED: LEVOFLOXACIN 500 MG PREMIX INJ 100 ML IV ONE (09:03)
[2016-03-11] MEDS ORDERED: GLUCAGON 1 MG/ML VIAL ONE (09:03)
[2016-03-11] MEDS ORDERED: fentaNYL CITRATE 250 MCG/5 ML AMP ONE (09:03)
[2016-03-11] MEDS ORDERED: IOHEXOL 350 MG/ML 50 ML BTL (for RAD DIAG) G-TUBE ONE (09:50)
--- NOTE | 2016-03-11 12:31 | HHI.PR ---
Subjective Remarks patient tolerated PEG placement Objective Vitals Vital Signs Date Time Temp Pulse Resp B/P Pulse Ox O2 Delivery O2 Flow Rate FiO2 03/11/16 11:30 80 18 122/56 100 03/11/16 11:00 82 18 130/55 98 03/11/16 10:30 83 18 108/98 93 03/11/16 10:00 84 18 118/45 100 03/11/16 09:45 98.4 88 18 90/55 100 03/11/16 09:06 96.0 89 20 104/65 97 03/11/16 04:40 98.0 62 21 110/72 96 03/11/16 01:00 98.9 89 20 109/65 95 03/10/16 23:30 98.3 96 16 109/54 96 03/10/16 16:00 99.6 87 18 88/48 95 03/10/16 12:58 98.5 89 18 92/58 98 I/O 03/10/16 03/10/16 03/10/16 03/11/16 03/11/16 03/11/16 07:00 15:00 23:00 07:00 15:00 23:00 Intake Total 1090 ml 0 ml Output Total 360 ml 1950 ml 1200 ml Balance 730 ml -1950 ml -1200 ml Intake Oral 0 ml Tube Feeding 690 ml Other 400 ml Output Urine Total 360 ml 1950 ml 1200 ml # Bowel Movements 1 3 0 Result Diagram: 03/08/16 0620 03/11/16 0525 Imaging Last Impressions Chest X-Ray 03/10/16 0700 Signed Impressions: Service Date/Time: February 06:31 - CONCLUSION: Mild left base infiltrate and effusion. Morales Mcpherson MD Brain MRI 02/28/16 0000 Signed Impressions: Service Date/Time: Sunday, February 28, 2016 17:49 - CONCLUSION: 1. Tiny acute lacunar infarct involving the left cerebellar hemisphere. 2. Old infarcts involving the left temporal and right occipital lobes. 3. Moderate to severe periventricular and subcortical white matter small-vessel ischemic changes bilaterally. 4. Diffuse cerebral atrophy. 5. No acute hemorrhage, midline shift or extra-axial fluid collections. 6. Scattered old lacunar infarcts within the bilateral basal ganglia. 7. Old tiny lacunar infarct within the left cerebellar hemisphere. Kayode Olivarez MD Head CT 02/25/16 2238 Signed Impressions: Service Date/Time: February 23:22 - CONCLUSION: Bilateral parietal transcortical infarcts appear subacute or chronic, but are new finding compared to December 2014. No evidence of blood products, mass effect, or cerebral edema. Tonny Gutierrez MD Objective Remarks anicteric, NGT in place dry oral mucosa, no thrush supple neck left chest wall- central line in place decreased breath sounds, no rales regular rhythm abdomen- soft, good bowel sounds, PEG in place zamarripa in place Upper extremities + edema- improving Lower extremities no edema withdraws all extremities to stimuli Procedures 03/11- PEG placement Urinary Catheter: Yes Assessment to: Continue Zamarripa insert reason: Prolonged Immobilization Date of Insertion: Feb 25, 2016 Date of Insertion: Feb 25, 2016 A/P Assessment and Plan This is elderly female patient with suspected urosepsis, altered mental status currently maintaining airway. The patient is at risk for possible intubation. Extensive discussion with the son revealed that he would like intubation if required by patient. Discussed goals of care as the patient remains critically ill with urosepsis, severe Parkinson's, altered mental status, decubitus ulcer, as the prognosis is guarded. The son requests that all measures be taken to include intubation and the patient is a full code. Mental status- change multifactorial due ;- sepsis, electrolyte imbalance, CVA ? acute Septic Shock secondary to Proteus UTI Toxic encephalopathy-secondary to urosepsis - ID ff. S/P Azacatam History of Parkinsons disease MUltiple acute infarcts on MRI- 02/27- history of CVA -Neurochecks- consult Neurology -On anti-Parkinson's home medications levodopa-carbidopa -We'll hold home meds Lexapro, Remeron, Ativan -Hold Depakote, - PEG - placed- restart TF -PT.OT eval -ff by Neurology Respiratory: -No acute issues, patient is at risk for possible intubation H/O cardiac stents Cardiovascular disease Hypertension -Maintain map greater than 65 mmHg, will place central line if needed for vasopressors -After bolus of IVF's patient normotensive SBP 115 -We'll resume home antihypertensive meds when clinically indicated -Patient on Plavix, and ASA 81 mg, restart after PEG placement Renal: DEEP- creatinine trending down with IVF Hypernatremia- Na trending down gradually Hematuria- resolved- zamarripa draining grossly clear yellow urine S/P renal surgery (past history) -- Strict I/Os - FF BMP FEN/GI: Diabetes mellitus S/P PEG 03/11 -Hold metformin - restart TF per PEG protocol Endocrine: Hypothyroidism - continue synthroid -- SSI MSK: Decubitus ulcer-sacrum -Wound care ff -PT evaluation and treat-functional maintenance daily Prophylaxis: GI Prophylaxis Protonix 40 mg Idaily DVT Prophylaxis -- SCDs Lines: Peripheral IVs 2. Central line if indicated Dispo: will need Blanca Lundy MD Mar 11, 2016 12:31 Dispo: will need Blanca Lundy MD Mar 11, 2016 12:31
[2016-03-12] MEDS: DOCUSATE SODIUM 100 MG/10 ML UDC G-TUBE SCH (00:12)
[2016-03-12 01:00] VITALS: BP 108/64; PULSE 78; RESP 20; TEMP 98; O2SAT 95
[2016-03-12] MEDS: FREE WATER G-TUBE SCH ×3 (04:00→08:00)
[2016-03-12] MEDS: CHLORHEXIDINE GLUCONATE 2 % 1 PACK (2 CLOTHS) TOP SCH (04:00)
[2016-03-12 05:00] VITALS: BP 105/65; PULSE 88; RESP 19; TEMP 98; O2SAT 96
[2016-03-12] MEDS: LEVOTHYROXINE SODIUM 75 MCG TAB PO SCH (05:40)
[2016-03-12] MEDS: INSULIN ASPART SUPPLEMENTAL SCALE SQ SCH (06:32)
--- NOTE | 2016-03-12 08:00 | HHI.PR ---
Subjective Remarks patient tolerating tube feedings, no residual + BM Objective Vitals Vital Signs Date Time Temp Pulse Resp B/P Pulse Ox O2 Delivery O2 Flow Rate FiO2 03/12/16 05:00 98.0 88 19 105/65 96 03/12/16 01:00 98.0 78 20 108/64 95 03/11/16 20:45 97.1 80 21 106/52 94 03/11/16 16:10 98.9 98 20 103/59 97 03/11/16 13:35 96.6 85 20 109/57 98 03/11/16 11:30 80 18 122/56 100 03/11/16 11:00 82 18 130/55 98 03/11/16 10:30 83 18 108/98 93 03/11/16 10:00 84 18 118/45 100 03/11/16 09:45 98.4 88 18 90/55 100 03/11/16 09:06 96.0 89 20 104/65 97 I/O 03/11/16 03/11/16 03/11/16 03/12/16 03/12/16 03/12/16 07:00 15:00 23:00 07:00 15:00 23:00 Intake Total 0 ml 80 ml 120 ml 2828 ml Output Total 1200 ml 600 ml 500 ml 600 ml Balance -1200 ml -520 ml -380 ml 2228 ml Intake Oral 0 ml 0 ml 0 ml IV Total 1008 ml Tube Feeding 30 ml 70 ml 720 ml Other 50 ml 50 ml 1100 ml Output Urine Total 1200 ml 600 ml 500 ml 600 ml # Bowel Movements 0 3 1 2 Result Diagram: 03/08/16 0620 03/11/16 0525 Imaging Last Impressions Chest X-Ray 03/10/16 0700 Signed Impressions: Service Date/Time: February 06:31 - CONCLUSION: Mild left base infiltrate and effusion. Morales Mcpherson MD Brain MRI 02/28/16 0000 Signed Impressions: Service Date/Time: Sunday, February 28, 2016 17:49 - CONCLUSION: 1. Tiny acute lacunar infarct involving the left cerebellar hemisphere. 2. Old infarcts involving the left temporal and right occipital lobes. 3. Moderate to severe periventricular and subcortical white matter small-vessel ischemic changes bilaterally. 4. Diffuse cerebral atrophy. 5. No acute hemorrhage, midline shift or extra-axial fluid collections. 6. Scattered old lacunar infarcts within the bilateral basal ganglia. 7. Old tiny lacunar infarct within the left cerebellar hemisphere. Kayode Olivarez MD Head CT 02/25/16 2238 Signed Impressions: Service Date/Time: February 23:22 - CONCLUSION: Bilateral parietal transcortical infarcts appear subacute or chronic, but are new finding compared to December 2014. No evidence of blood products, mass effect, or cerebral edema. Tonny Gutierrez MD Objective Remarks anicteric, no meaningful interaction no thrush, dry oral mucosa supple neck decreased breath sounds, no rales regular rhythm abdomen- soft, good bowel sounds, PEG in place zamarripa in place Lower extremities no edema withdraws all extremities to stimuli Procedures 03/11- PEG placement Urinary Catheter: Yes Zamarripa insert reason: Prolonged Immobilization Date of Insertion: Feb 25, 2016 Vascular Central Line Catheter: Yes Assessment to: Remove Date of Insertion: Feb 25, 2016 Date of Removal: Mar 12, 2016 A/P Assessment and Plan This is elderly female patient with suspected urosepsis, altered mental status currently maintaining airway. The patient is at risk for possible intubation. Extensive discussion with the son revealed that he would like intubation if required by patient. Discussed goals of care as the patient remains critically ill with urosepsis, severe Parkinson's, altered mental status, decubitus ulcer, as the prognosis is guarded. The son requests that all measures be taken to include intubation and the patient is a full code. Mental status- change multifactorial due ;- sepsis, electrolyte imbalance, CVA ? acute Septic Shock secondary to Proteus UTI Toxic encephalopathy-secondary to urosepsis - ID ff. S/P Azactam History of Parkinsons disease MUltiple acute infarcts on MRI- 02/27- history of CVA -Neurochecks- consult Neurology -On anti-Parkinson's home medications levodopa-carbidopa -We'll hold home meds Lexapro, Remeron, Ativan - Plavix + ASA -ff by Neurology H/O cardiac stents Cardiovascular disease Hypertension -Maintain map greater than 65 mmHg, will place central line if needed for vasopressors -Patient on Plavix, and ASA 81 mg, Renal: DEEP- resolved Hypernatremia- Na trending down gradually Hematuria- resolved- zamarripa draining grossly clear yellow urine S/P renal surgery (past history) -- Strict I/Os . free water /PEG FEN/GI: Diabetes mellitus S/P PEG 03/11 --Hold metformin with hsitory of DEEP. . FF blood sugars - ff blood sugar- restart TF- glucerna 1.5 at 50 cc/hr - per PEG protocol - sliding scale Endocrine: Hypothyroidism - continue synthroid -- SSI MSK: Decubitus ulcer-sacrum -Wound care ff -PT evaluation and treat-functional maintenance daily Prophylaxis: GI Prophylaxis Protonix 40 mg Idaily DVT Prophylaxis -- SCDs Lines: Peripheral IVs 2. Dispo: will need Blanca Lundy MD Mar 12, 2016 08:00 Dispo: will need Blanca Lundy MD Mar 12, 2016 08:00
[2016-03-12] MEDS ORDERED: NOVOLOGSS SQ (08:17)
[2016-03-12] MEDS ORDERED: WATE10P G-TUBE (08:17)
[2016-03-12] MEDS ORDERED: ASPI81TA11 PO (08:17)
[2016-03-12] MEDS ORDERED: COLL30T TOP (08:17)
[2016-03-12] MEDS ORDERED: PLAV75TA29 PO (08:17)
--- NOTE | 2016-03-12 08:24 | HHI.DS ---
Discharge Summary Admission Date Feb 25, 2016 at 23:56 Discharge Date: Mar 12, 2016 Admitting Diagnosis sepsis, altered mental status, UTI, decubitus ulcer (1) Sepsis ICD Code: A41.9 Diagnosis: Principal (2) UTI (urinary tract infection) ICD Code: N39.0 Diagnosis: Principal (3) CVA (cerebral vascular accident) ICD Code: I63.9 Diagnosis: Principal Procedures 03/11- PEG placement Brief History - From Admission 85-year-old female that resides in a skilled nursing , presented to the ED with altered mental status. The patient was found poorly responsive by the 3 PM shift at the skilled nursing. The skilled nursing facility obtain lab work which resulted in a WBC count of 25,000. A Zamarripa catheter was placed at the skilled nursing facility and was noted to drain dark reddish brown malodorous cloudy urine. The patient's medical history is significant for severe Parkinsonism and has been basically bedridden. Upon examination in the ED, it was noted she has a deep 2 inch decubitus ulcer in her sacrum. I was told that the patient's is also a patient here in the hospital. In route to the hospital per ED the patient was hypotensive ,SBP 80's. The patient is unresponsive unable to provide any information. Just moaning and opens her eyes to noxious stimuli. [facility] was consulted for treatment and management .Discussion with the son, revealed that the patient is a full code. She has been maintaining her respirations and is saturating 99% on nasal cannula, if respiratory compromise occurs the family requested intubation and all aggressive measures. History PFSH Past Medical History Narrative Medical History of her past medical history is reviewed from the nursing note. Arthritis: Yes Asthma: No Blood Disorders: No Anxiety: Yes Depression: Yes Heart Rhythm Problems: No Cancer: Yes ( NOSE) Cardiac Catheterization: Yes (STENT LAD) Cardiovascular Problems: Yes High Cholesterol: Yes Chemotherapy: No Chest Pain: Yes Congestive Heart Failure: No COPD: No Cerebrovascular Accident: Yes ([place]) Dementia: Yes Diabetes: Yes Patient Takes Glucophage: Yes Diminished Hearing: Yes ([place]) Endocrine: Yes Gastrointestinal Disorders: Yes (HEMMORHOIDS ) GERD: Yes Glaucoma: No Headaches: No Hepatitis: Yes Hiatal Hernia: Yes Heparin Induced Thrombocytopen: No Hypertension: Yes Immune Disorder: Yes (SJORGEN'S SYNDROME) Implanted Vascular Access Dvce: Yes Kidney Stones: Yes Musculoskeletal: Yes (L LEG SHORTER THAN RIGHT, L FOOT SMALLER) Neurologic: Yes Parkinson's Disease: Yes Psychiatric: Yes Reproductive: No Migraines: No Myocardial Infarction: No Radiation Therapy: No Renal Failure: No Seizures: No Sleep Apnea: No Thyroid Disease: Yes Ulcer: No PNEUMOCCOCAL Vaccine (Year): 2 Past Surgical History Abdominal Surgery: Yes AICD: No Appendectomy: No Arteriovenous Shunt: No Body Medical Devices: "HEART STENT, I CAN'T REMEMBER ANYTHING ELSE" Cardiac Surgery: Yes (STENT PLACED TWO YEARS AGO) Cholecystectomy: Yes Coronary Artery Bypass Graft: No Coronary Stent: Yes Ear Surgery: No Endocrine Surgery: No Eye Surgery: No Genitourinary Surgery: Yes (RIGHT KIDNEY, URETHRAL) Gynecologic Surgery: Yes Hysterectomy: Yes Insulin Pump: No Joint Replacement: No Neurologic Surgery: No Oral Surgery: No Pacemaker: No Thoracic Surgery: Yes (THORACOTOMY at 26, FOUND A CYST ON HER LUNG) Tonsillectomy: Yes Other Surgery: Yes (NOSE) Family History Family Myocardial Infarction: Yes Social History Alcohol Use: No Tobacco Use: No Substance Use: No Allergies-Medications Allergies-Medications (Allergen,Severity, Reaction): Coded Allergies: Iodinated Contrast Media (Verified Allergy, Severe, DIFFICULTY BREATHING, 02/25/16) Keflex (Verified Allergy, Severe, 02/25/16) Tetracycline (Verified Allergy, Severe, 02/25/16) Marshall (Verified Allergy, Mild, 02/25/16) Uncoded Allergies: COCONUT (Adverse Reaction, Severe, 03/10/14) EGGS (Adverse Reaction, Severe, 03/10/14) Comments List of her allergies reviewed from the nursing note. Reported Meds & Prescriptions Reported Meds & Active Scripts Active Reported Megestrol Acetate 1 Pow Pow 1 Macrobid (Nitrofurantoin Monoh/Nitrofur Macro) 100 Mg Cap 100 Mg PO BID Lexapro (Escitalopram Oxalate) 10 Mg Tab 10 Mg PO DAILY Remeron (Mirtazapine) 30 Mg Tab 30 Mg PO HS Neupro Patch 24 HR (Rotigotine Patch 24 HR) 4 Mg/24 Hr Patch 4 Mg T-DERMAL DAILY Protonix (Pantoprazole Sodium) 40 Mg Tab 40 Mg PO DAILY Nitroglycerin SL (Nitroglycerin) 0.4 Mg Subl 0.4 Mg SL DIRECTED PRN ONE TABLET UNDER THE TONGUE NEEDED FOR CHEST PAIN, MAY REPEAT EVERY FIVE MINUTES FOR A TOTAL OF 3 DOSES OR CALL 911 IF NO RELIEF Metformin (Metformin HCl) 500 Mg Tab 500 Mg PO BIDPC With meals Lorazepam 1 Mg Tab 1 Mg PO Q8H Levothyroxine (Levothyroxine Sodium) 75 Mcg Tab 37.5 Mcg PO DAILY Novolin R Relion (Insulin Regular (Human)) 100 Unit/Ml Inj 100 Units SQ/IV SLIDING SCALE Ferrous Sulfate 325 Mg Tab 325 Mg PO DAILY Depakote Sprinkles (Divalproex Sodium) 125 mg Cap 125 Mg PO BID Plavix (Clopidogrel Bisulfate) 75 Mg Tab 75 Mg PO DAILY Carbidopa-Levodopa 25-100 Mg Tab 1 Tab PO Q8HR Aspir-Low (Aspirin) 81 Mg Tabdr Amlodipine (Amlodipine Besylate) 5 Mg Tab 5 Mg PO DAILY Narrative Medication List of her home medications reviewed from the nursing note. ROS Review of Systems Except as stated in HPI: all other systems reviewed are Neg CBC/BMP: 03/08/16 0620 03/11/16 0525 Significant Findings Laboratory Tests Test 03/10/16 03/11/16 08:00 05:25 Blood Urea Nitrogen 67 MG/DL (7-18) 65 MG/DL (7-18) Creatinine 1.24 MG/DL 1.15 MG/DL (0.50-1.00) (0.50-1.00) Estimat Glomerular Filtration 41 ML/MIN (>89) 45 ML/MIN (>89) Rate Random Glucose 161 MG/DL (74-106) Imaging Last Impressions Chest X-Ray 03/10/16 0700 Signed Impressions: Service Date/Time: February 06:31 - CONCLUSION: Mild left base infiltrate and effusion. Morales Mcpherson MD Brain MRI 02/28/16 0000 Signed Impressions: Service Date/Time: Sunday, February 28, 2016 17:49 - CONCLUSION: 1. Tiny acute lacunar infarct involving the left cerebellar hemisphere. 2. Old infarcts involving the left temporal and right occipital lobes. 3. Moderate to severe periventricular and subcortical white matter small-vessel ischemic changes bilaterally. 4. Diffuse cerebral atrophy. 5. No acute hemorrhage, midline shift or extra-axial fluid collections. 6. Scattered old lacunar infarcts within the bilateral basal ganglia. 7. Old tiny lacunar infarct within the left cerebellar hemisphere. Kayode Olivarez MD Head CT 02/25/16 2238 Signed Impressions: Service Date/Time: February 23:22 - CONCLUSION: Bilateral parietal transcortical infarcts appear subacute or chronic, but are new finding compared to December 2014. No evidence of blood products, mass effect, or cerebral edema. Tonny Gutierrez MD PE at Discharge anicteric, opens eyes to call of name no thrush, dry oral mucosa supple neck decreased breath sounds, no rales regular rhythm abdomen- soft, good bowel sounds, PEG in place zamarripa in place Lower extremities no edema withdraws all extremities to stimuli Pt update on day of discharge awake, tolerating tube feedings , aphasic, occasinally moans, no meaningful interaction Hospital Course This is elderly female patient with suspected urosepsis, altered mental status currently maintaining airway. The patient is at risk for possible intubation. Extensive discussion with the son revealed that he would like intubation if required by patient. Discussed goals of care as the patient remains critically ill with urosepsis, severe Parkinson's, altered mental status, decubitus ulcer, as the prognosis is guarded. The son requests that all measures be taken to include intubation and the patient is a full code. Mental status- change multifactorial due ;- sepsis, electrolyte imbalance, CVA ? acute Septic Shock secondary to Proteus UTI Toxic encephalopathy-secondary to urosepsis - ID ff. S/P Azactam History of Parkinsons disease MUltiple acute infarcts on MRI- 02/27- history of CVA -Neurochecks- consult Neurology -On anti-Parkinson's home medications levodopa-carbidopa -We'll hold home meds Lexapro, Remeron, Ativan - Plavix + ASA -ff by Neurology H/O cardiac stents Cardiovascular disease Hypertension -Maintain map greater than 65 mmHg, will place central line if needed for vasopressors -Patient on Plavix, and ASA 81 mg, Renal: DEEP- resolved Hypernatremia- Na trending down gradually Hematuria- resolved- zamarripa draining grossly clear yellow urine S/P renal surgery (past history) -- Strict I/Os . free water /PEG FEN/GI: Diabetes mellitus S/P PEG 03/11 --Hold metformin with hsitory of DEEP. . FF blood sugars - ff blood sugar- restart TF- glucerna 1.5 at 50 cc/hr - per PEG protocol - sliding scale Endocrine: Hypothyroidism - continue synthroid -- SSI MSK: Decubitus ulcer-sacrum -Wound care ff -PT evaluation and treat-functional maintenance daily Prophylaxis: GI Prophylaxis Protonix 40 mg Idaily DVT Prophylaxis -- SCDs Lines: Peripheral IVs 2. Dispo: will need SNF Pt Condition on Discharge: Stable Discharge Disposition: Discharge to SNF Discharge Time: <= 30 minutes Discharge Instructions DIET: Follow Instructions for: On Tube Feeding Speech Therapy-Diet Recommends: Other Additional Diet Instructions: speech therapist to ff patient daily for assessment Activities you can perform: See Additionl Instruction Other Activity Instructions: PT/OT daily Follow up Referrals: Neurology - 2 Weeks with Keo Sharma MD New Medications: Aspirin (Aspirin EC) 81 Mg Tabdr 81 MG PO DAILY CVA Days 30 TAB Clopidogrel (Plavix) 75 Mg Tab 75 MG PO DAILY CVA Days 30 TAB Collagenase (Santyl) 250 Unit/Gm Oin 1 APPLIC TOP DAILY coccyx wound Days 10 TUBE Insulin Aspart Inj (Novolog Inj) 100 Unit/Ml Inj 1 UNITS SQ ACHS SLIDING SCALE DM Days 30 INJECTION Water Sterile Inj (Sterile Water For Injection) 10 Ml Inj 300 ML G-TUBE Q4HR water fklus Days 30 INJECTION Continued Medications: Aspirin (Aspir-Low) 81 Mg Tabdr Carbidopa-Levodopa (Carbidopa-Levodopa) 25-100 Mg Tab 1 TAB PO Q8HR Parkinson Disease Mgmt #90 Ref 0 TAB Clopidogrel (Plavix) 75 Mg Tab 75 MG PO DAILY Blood Clot Prevention #30 Ref 0 TAB Divalproex Sprinkles (Depakote Sprinkles) 125 mg Cap 125 MG PO BID Control Seizures #60 Ref 0 CAP Insulin Regular (Human) (Novolin R Relion) 100 Unit/Ml Inj 100 UNITS SQ/IV sliding scale Levothyroxine (Levothyroxine) 75 Mcg Tab 37.5 MCG PO DAILY Thyroid #30 Ref 0 TAB Pantoprazole (Protonix) 40 Mg Tab 40 MG PO DAILY Ulcer Prevention #30 Ref 0 TAB Rotigotine Patch 24 HR (Neupro Patch 24 HR) 4 Mg/24 Hr Patch 4 MG T-DERMAL DAILY Parkinson Disease Mgmt Ref 0 PATCH Discontinued Medications: Amlodipine (Amlodipine) 5 Mg Tab 5 MG PO DAILY Blood Pressure Management #30 Ref 0 TAB Escitalopram (Lexapro) 10 Mg Tab 10 MG PO DAILY #30 Ref 0 TAB Ferrous Sulfate (Ferrous Sulfate) 325 Mg Tab 325 MG PO DAILY Nutritional Supplement #30 Ref 0 TAB Lorazepam (Lorazepam) 1 Mg Tab 1 MG PO Q8H anxiety' Ref 0 TAB Megestrol Acetate (Megestrol Acetate) 1 Pow Pow 1 Metformin (Metformin) 500 Mg Tab 500 MG PO BIDPC With meals Blood Sugar Management #60 Ref 0 TAB Mirtazapine (Remeron) 30 Mg Tab 30 MG PO HS Depression Control #30 Ref 0 TAB Nitroglycerin SL (Nitroglycerin SL) 0.4 Mg Subl 0.4 MG SL DIRECTED ONE TABLET UNDER THE TONGUE NEEDED FOR CHEST PAIN, MAY REPEAT EVERY FIVE MINUTES FOR A TOTAL OF 3 DOSES OR CALL 911 IF NO RELIEF PRN CHEST PAIN #100 Ref 0 TAB.SL Blanca Norman MD Mar 12, 2016 08:24
[2016-03-12] MEDS: ASPIRIN EC 81 MG TABEC PO SCH (08:36)
[2016-03-12] MEDS: DIVALPROEX SODIUM SPRINKLES 125 MG CAP PO SCH (08:36)
[2016-03-12] MEDS: MUPIROCIN 2% OINT 1 APPLIC/GM SYR NASAL SCH (08:36)
[2016-03-12] MEDS: NYSTATIN SUSP 500,000 U/5 ML CUP SWAB SCH (08:36)
[2016-03-12] MEDS: LANSOPRAZOLE SOLUTAB 30 MG TAB NG SCH (08:36)
[2016-03-12] MEDS: COLLAGENASE OINT 30 GM TUBE TOP SCH (08:38)
[2016-03-12] MEDS: SODIUM CHLORIDE 0.9% FLUSH 5 ML FLUSH IV FLUSH SCH (08:39)
[2016-03-12 08:41] VITALS: BP 113/63; PULSE 90; RESP 22; TEMP 99.8; O2SAT 96
[2016-03-12] MEDS ORDERED: CLOPIDOGREL 75 MG TAB GT SCH (09:00)
== END 2016-03-12 11:38 | DRG 871 ==
LOC: NEPC 21:39 → NEDA 23:56 → NEDH 02-26 03:56 → N03A 02-26 06:30 → HCIS 02-29 00:41 → N05B 03-04 23:43
PROVIDERS: ADMIT Internal Medicine; ATTEND Internal Medicine
PROC: 05H633Z Insertion of Infusion Device into Left Subclavian Vein, Percutaneous Approach (ICD-10-PCS; principal; 2016-02-26)
PROC: 0DH67UZ Insertion of Feeding Device into Stomach, Via Natural or Artificial Opening (ICD-10-PCS; 2016-02-26)
PROC: 3E0F7GC Introduction of Other Therapeutic Substance into Respiratory Tract, Via Natural or Artificial Opening (ICD-10-PCS; 2016-02-26)
PROC: 0T9B70Z Drainage of Bladder with Drainage Device, Via Natural or Artificial Opening (ICD-10-PCS; 2016-02-26)
PROC: 0DH63UZ Insertion of Feeding Device into Stomach, Percutaneous Approach (ICD-10-PCS; 2016-03-11)
DX: A41.59 Other Gram-negative sepsis (principal); L89.154 Pressure ulcer of sacral region, stage 4; I63.9 Cerebral infarction, unspecified; R65.21 Severe sepsis with septic shock; J90 Pleural effusion, not elsewhere classified; G92 Toxic encephalopathy; N17.9 Acute kidney failure, unspecified; E87.0 Hyperosmolality and hypernatremia; M35.00 Sjogren syndrome, unspecified; E87.1 Hypo-osmolality and hyponatremia; N39.0 Urinary tract infection, site not specified; G20 Parkinson's disease; F03.90 Unspecified dementia, unspecified severity, without behavioral disturbance, psychotic disturbance, mood disturbance, and anxiety; E86.0 Dehydration; E11.9 Type 2 diabetes mellitus without complications; M19.90 Unspecified osteoarthritis, unspecified site; F41.9 Anxiety disorder, unspecified; F32.9 Major depressive disorder, single episode, unspecified; E78.00 Pure hypercholesterolemia, unspecified; H91.90 Unspecified hearing loss, unspecified ear; I10 Essential (primary) hypertension; K21.9 Gastro-esophageal reflux disease without esophagitis; Z87.442 Personal history of urinary calculi; I25.10 Atherosclerotic heart disease of native coronary artery without angina pectoris; Z95.5 Presence of coronary angioplasty implant and graft; Z82.49 Family history of ischemic heart disease and other diseases of the circulatory system; Z86.73 Personal history of transient ischemic attack (TIA), and cerebral infarction without residual deficits; Z74.01 Bed confinement status; E07.9 Disorder of thyroid, unspecified; K44.9 Diaphragmatic hernia without obstruction or gangrene; G47.00 Insomnia, unspecified; R31.9 Hematuria, unspecified; E03.9 Hypothyroidism, unspecified; B96.4 Proteus (mirabilis) (morganii) as the cause of diseases classified elsewhere; B96.20 Unspecified Escherichia coli [E. coli] as the cause of diseases classified elsewhere; E87.5 Hyperkalemia; Z66 Do not resuscitate; Z79.02 Long term (current) use of antithrombotics/antiplatelets; Z79.82 Long term (current) use of aspirin; Z79.84 Long term (current) use of oral hypoglycemic drugs; Z86.19 Personal history of other infectious and parasitic diseases
CPT/HCPCS: 36556; 49440; 70450; 70551; 71010; 76937; 76942; 80048; 80053; 80061; 80076; 80164; 80170; 80202; 81001; 82550; 82565; 82948; 83036; 83605; 83735; 83880; 84100; 84132; 84443; 84484; 85007; 85025; 85027; 85610; 85730; 87040; 87077; 87086; 87186; 87205; 87641; 94664; 96365; 96375; 99152; 99153; 99292; C9113; J1580; J1610; J1815; J1940; J1956; J2250; J2543; J2997; J3010; J3370; J7030; J7050; Q9967